=== PATIENT | female | born 1940 | race Caucasian/White ===

== ENCOUNTER 2016-12-18 21:00 | Inpatient (IN) | payer OTHER ==
[~2016-12-18] VITALS: Ht 167.6 cm; Wt 99.9 kg
--- NOTE | 2016-12-18 21:07 | NUR ---
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 SUPPORT GIVEN AND PT ENCOURAGED TO FOCUS ON SLOW BELLY BREATHING
--- NOTE | 2016-12-18 21:21 | ED DYSPNEA/ASTHMA COMPLAINT ---
History of Present Illness General Chief Complaint: Dyspnea (COPD, CHF, Other) Stated Complaint: CHILLS, SHOULDER PAIN, POOR PO INTAKE, SOB Source: patient, old records Exam Limitations: no limitations Vital Signs & Intake/Output Vital Signs & Intake/Output Vital Signs Date Time Temp Pulse Resp B/P B/P Pulse O2 O2 Flow FiO2 Mean Ox Delivery Rate 12/183 99.9 93 20 119/67 94 Nasal 2.0L Cannula 12/18 2118 99.9 92 16 86/56 96 Room Air Allergies Coded Allergies: Penicillins (UNKNOWN 12/18/16) vancomycin (ITCHY ALL OVER 12/18/16) Reconcile Medications Aspirin (Aspirin*) 81 MG TAB.CHEW 1 TAB PO DAILY HEART HEALTH (Reported) Carvedilol (Coreg) 25 MG TABLET 1 TAB PO BID htn (Reported) Docusate Sodium (Colace) 100 MG CAPSULE 1 CAP PO BID CONSTIPATION (Reported) Furosemide (Lasix) 40 MG TABLET 1 TAB PO DAILY htn (Reported) Gabapentin (Neurontin) 300 MG CAPSULE 2 CAP PO TID NEUROPATHY (Reported) Glipizide (Glipizide ER) 2.5 MG TAB.ER.24 1 TAB PO BID DM (Reported) Lisinopril 10 MG TABLET 1 TAB PO DAILY htn (Reported) Pantoprazole Sodium (Protonix) 40 MG TABLET.DR 1 TAB PO DAILY GERD (Reported) Triage Nurses Notes Reviewed? yes Onset: Gradual Duration: day(s): (5), constant Timing: recent history Severity: moderate Activities at Onset: activity Prior Episodes/Possible Cause: no prior episodes Associated Symptoms: arm pain HPI: 76 Year old female with history of Hypertension, RALPH, hyperlipidemia, cardiomyopathy, diabetes, chronic kidney disease presents to the ER for evaluation with family who report the patient has had progressively worsening generalized weakness, poor appetite and subjective fever chills for the past 5 days. Patient is also complaining of generalized body aches particularly bilateral arm pain for which she is in pain management. Her last dose of Tylenol with codeine was at 3:00 this afternoon without improvement. The patient denies any recent injury trauma or fall. She denies any chest pain or shortness of breath. No abdominal pain nausea vomiting or diarrhea no black or bloody stools no urinary frequency urgency dysuria. There's been no change in her mental status per family no rashes to her skin no headache (ARMOND SEGUAR) Past History Travel History Traveled to [place] past 21 day No Medical History Any Pertinent Medical History? see below for history Cardiovascular: cardiomyopathy, hypertension, hyperlipidemia Musculoskeletal: chronic arm/neck pain Endocrine: diabetes Pneumonia Vaccine: 12/09/06 Surgical History Surgical History: non-contributory Psychosocial History Who do you live with Daughter What is your primary language Belarusian Family History Hx Contributory? No (ARMOND SEGURA) Review of Systems Review of Systems Constitutional: Reports: see HPI. All Other Systems: Reviewed and Negative Comments Review of systems: See HPI, All other systems negative. Constitutional, no chills no fever, malaise HEENT: no sore throat no congestion Cardiovascular: No chest pain , no palpitation Skin: no rashes, no change in skin Respiratory: No dyspnea no cough no sputum GI: No nausea no vomiting, no diarrhea, : No dysuria No hematuria, no frequency Muscle skeletal: chronic joint pain, no joint swelling, no back pain, no neck pain, Neurologic: No numbness no confusion, no headache Psych: No stress no depression,. Heme/endocrine: No bruising no bleeding Immunology: No lymphadenopathy (ARMOND SEGURA) Physical Exam Physical Exam General Appearance: well developed/nourished, alert, awake Respiratory: normal breath sounds, lungs clear Comments: Well-developed well-nourished person in no acute distress HEENT: Normal EENT exam; PERRL, EOMI,. HEAD is atraumatic. moist mucous membranes. Neck: Supple, no lymphadenopathy, normal range of motion Back: Nontender, no CVA tenderness. Full range of motion Cardiovascular: Regular rate and rhythms no murmurs rubs Respiratory: No respiratory distress. Patient speaking in full complete sentences. Breath sounds clear to auscultation bilaterally: NO W/R/R Abdomen: Soft, nontender nondistended, no appreciable organomegaly. Normal bowel sounds. No rebound/guarding, No appreciable enlargement of the abdominal aorta, No ascites. Extremity: No edema, full range of motion of extremities, normal and equal pulses bilaterally, 5 out of 5 strength noted to bilateral upper and lower extremities Neuro: Alert oriented x3, motor sensory normal, There were no obvious focal neurologic abnormalities. Skin: No appreciable rash on exposed skin, skin is warm and dry. Psych: Mood and affect is normal, memory and judgment is normal. Core Measures ACS in differential dx? Yes Severe Sepsis Present: Yes BC x2: Yes Lactic Acid x2: Yes IV ABX Broad Spectrum: Yes NS/LR Started: Yes Septic Shock Present: No (ARMOND SEGURA) Progress Differential Diagnosis: AMI, pericarditis, pneumonia, sepsis, bronchitis, uti, rhabdo, electrolyte abnormality, kidney insufficency Plan of Care: Orders Procedure Date/time Status Regular Diet 12/19 B Active OXYGEN SETUP (GEN) 12/18 2318 Active Saline Lock 12/18 2318 Active Admit to inpatient 12/18 2318 Active Vital Signs 12/18 2318 Active Activity/Ambulation 12/18 2318 Active Code Status 12/18 2318 Active Patient Data 12/18 2306 Active Add-on Test (ER Only) 12/18 2236 Active B-TYPE NATRIURETIC PEP (BNP) 12/18 2149 Complete Telemetry/Baker Pie 12/18 2134 Active CULTURE,URINE 12/18 2134 Active BLOOD CULTURE 12/18 2134 Active URINALYSIS 12/18 2134 Active TROPONIN LEVEL 12/18 2134 Complete LACTIC ACID 12/18 2134 Complete COMPREHENSIVE METABOLIC PANEL 12/18 2134 Complete CREATINE PHOSPHOKINASE 12/18 2134 Complete CBC WITHOUT DIFFERENTIAL 12/18 2134 Complete EKG 12/18 2102 Active Current Medications Sig/Louisa Start time Last Medication Dose Stop Time Status Admin Azithromycin 500 MG ONCE ONE 12/18 2245 AC 12/18 (Zithromax) 12/18 2344 2302 Sodium Chloride 250 ML (Normal Saline 0.9%) Sodium Chloride 1,000 ML BOLUS ONE 12/18 224 AC (Normal Saline 0.9%) 12/18 2344 Laboratory Tests 12/18/162149: Anion Gap 12, Estimated GFR 17 L, BUN/Creatinine Ratio 32.6 H, Glucose 143 H, Lactic Acid 0.6 L, Calcium 9.0, Total Bilirubin 0.5, AST 17, ALT 31, Alkaline Phosphatase 47, Creatine Kinase 82, Troponin I 0.01, Qvw-F-Byfccbpcppe Pept 2460 H, Total Protein 6.9, Albumin 4.0, Globulin 2.9, Albumin/Globulin Ratio 1.4, CBC w Diff NO MAN DIFF REQ, RBC 3.80 L, MCV 88.0, MCH 29.6, RDW 14.0, MPV 9.4, Gran % 74.3, Lymphocytes % 15.2 L, Monocytes % 5.4, Eosinophils % 4.0, Basophils % 1.1, Absolute Granulocytes 4.9, Absolute Lymphocytes 1.0 L, Absolute Monocytes 0.4, Absolute Eosinophils 0.3, Absolute Basophils 0.1, PUBS MCHC 33.6 Microbiology 12/18 2206 BLOOD: Blood Culture - RECD 12/18 2149 BLOOD: Blood Culture - RECD 12/18 2134 URINE ROUT: Urine Culture - ORD labs ordered old records reviewed, case d/w dr Dueñas agrees with plan, pt noted to be hypotensive, mentating well. iv fluids ordered Patient placed on 2 L O2 oxygen saturation 87-88% IV fluids running she reports to feeling improved with IV fluids I discussed with her and her family at length all of her lab results need for admission which they're in agreement with 2299 case d/w dr delacruz covering dr morelos will admit (ALEXY HARDEN,ARMOND) Diagnostic Imaging: Viewed by Me: Radiology Read. Discussed w/RAD: Radiology Read. Radiology Impression: PATIENT: MADDIE MCMANUS PRESENT AGE: 76 PATIENT ACCOUNT NO: [id number] : 38 LOCATION: [facility] ORDERING PHYSICIAN: ARMOND HARDEN SERVICE DATE: 12/18/16 EXAM TYPE: RAD - XRY- PORTABLE CHEST XRAY EXAMINATION: XR PORTABLE CHEST CLINICAL INFORMATION: Hypotension. Shortness of breath. COMPARISON: Portable chest x-ray 12/27/2011. TECHNIQUE: Portable frontal view of the chest was obtained. FINDINGS: The lungs are hypoinflated. A left-sided retrocardiac opacity as well as a right basilar opacity are nonspecific and may reflect atelectasis. Superimposed infection cannot be excluded. No pleural effusions or pneumothoraces are identified. Cardiomediastinal contours are stable and there is stable prominence of the cardiac silhouette, without overt pulmonary edema. Soft tissues are unremarkable. No acute osseous abnormality is identified. IMPRESSION: Pulmonary hypoinflation. A left-sided retrocardiac opacity as well as a right basilar opacity are nonspecific and may reflect atelectasis. Superimposed infection cannot be excluded. Cardiomegaly. No overt pulmonary edema. No pleural effusions. DICTATED BY: HILARIA BRAUN MD DATE/TIME DICTATED:12/18/162221 MILL RECORDER:JAS DATE/TIME TRANSCRIBED:12/18/162221 CONFIDENTIAL, DO NOT COPY WITHOUT APPROPRIATE AUTHORIZATION. <Electronically signed in Other Vendor System> SIGNED BY: HILARIA BRAUN MD 12/18/162226 Initial ED EKG: normal p-waves, normal QRS complex, normal sinus rhythm, NSR (90 ), LBBB Prior EKG: unchanged (12/2011) (ARMOND SEGURA) Departure Departure Time of Disposition: 2302 Disposition: STILL A PATIENT Condition: Stable Clinical Impression Primary Impression: Acute kidney injury Secondary Impressions: Pneumonia Referrals: CHI MORELOS MD (PCP/Family) Departure Forms: Customer Survey General Discharge Information Admission Note Spoke With: ANG DELACRUZ MD Documentation of Exam: Documentation of any treatments & extenuating circumstances including Concerns Regarding Discharge (functional status, medication knowledge or non-compliance, living conditions, etc.) that warrant an admission rather than observation: iv fluids, trend labs and cultures, iv abx, premature discharge would be medically harfmul (ARMOND SEGURA) PA/[employer] Co-Sign Statement Statement: ED Attending supervision documentation- x I saw and evaluated the patient. I have also reviewed all the pertinent lab results and diagnostic results. I agree with the findings and the plan of care as documented in the PA's/[employer]'s documentation. [] I have reviewed the ED Record and agree with the PA's/[employer]'s documentation. [] Additions or exceptions (if any) to the PAs/[employer]'s note and plan are summarized below: [] (DINO DUEÑAS MD) Critical Care Note Critical Care Note Critical Care Time: non-applicable (ARMOND SEGURA)
--- NOTE | 2016-12-18 21:22 | NUR ---
PT TO ED WITH FAMILY C/O GENERALIZED WEAKNESS/FEVERS/CHILLS/SOB X5 DAYS. 99.9 ORALLY IN TRIAGE, TOOK TYLENOL #3 AT 1500. POOR PO INTAKE. 96% ON RA.
--- NOTE | 2016-12-18 21:22 | NUR ---
PT BROUGHT TO RM 1 FOR COMPLETION OF TRIAGE. FINA TRACEY AT BEDSIDE
[2016-12-18 22:03] LABS: ABSOLUTE BASOPHIL COUNT 0.1 /CUMM (0.0-0.2); ABSOLUTE EOSINOPHIL COUNT 0.3 /CUMM (0.0-0.7); ABSOLUTE GRANULOCYTE CT 4.9 /CUMM (1.4-6.5); ABSOLUTE MONOCYTE COUNT 0.4 /CUMM (0.10-0.60); BASOPHIL % 1.1 % (0.0-2.0); GRANULOCYTE % 74.3 % (42.2-75.2); HEMATOCRIT 33.5 % (37-47); MEAN CORPUSCULAR HGB 29.6 PG (27.0-31.0); MEAN CORPUSCULAR HGB CONC 33.6 G/DL (33.0-37.0); MEAN PLATELET VOLUME 9.4 FL (7.4-10.4); PLATELET COUNT 169 /CUMM (130-400); WHITE BLOOD CELL COUNT 6.7 /CUMM (4.8-10.8)
[2016-12-18] MEDS ORDERED: LASIX40 M1 PO (22:13)
[2016-12-18] MEDS ORDERED: COREG25 M1 PO (22:13)
[2016-12-18] MEDS ORDERED: LISINOPRIL10 M1 PO (22:13)
[2016-12-18] MEDS ORDERED: GLIPIZIDE ER2.5 M1 PO (22:14)
[2016-12-18] MEDS ORDERED: PROTONIX40 M3 PO (22:14)
[2016-12-18] MEDS ORDERED: ASPIRIN81 M4 PO (22:14)
[2016-12-18] MEDS ORDERED: NEURONTIN300 M1 PO (22:14)
[2016-12-18] MEDS ORDERED: COLACE100 M1 PO (22:14)
--- NOTE | 2016-12-18 22:16 | NUR ---
RADIOLOGY TO BEDSIDE TO REPORT PCXY.
--- NOTE | 2016-12-18 22:27 | RADIOLOGY REPORT ---
EXAMINATION: XR PORTABLE CHEST CLINICAL INFORMATION: Hypotension. Shortness of breath. COMPARISON: Portable chest x-ray 12/27/2011. TECHNIQUE: Portable frontal view of the chest was obtained. FINDINGS: The lungs are hypoinflated. A left-sided retrocardiac opacity as well as a right basilar opacity are nonspecific and may reflect atelectasis. Superimposed infection cannot be excluded. No pleural effusions or pneumothoraces are identified. Cardiomediastinal contours are stable and there is stable prominence of the cardiac silhouette, without overt pulmonary edema. Soft tissues are unremarkable. No acute osseous abnormality is identified. IMPRESSION: Pulmonary hypoinflation. A left-sided retrocardiac opacity as well as a right basilar opacity are nonspecific and may reflect atelectasis. Superimposed infection cannot be excluded. Cardiomegaly. No overt pulmonary edema. No pleural effusions.
--- NOTE | 2016-12-18 23:02 | NUR ---
SECOND LITER NS HUNG PER EMAR. AZITHROMYCIN HUNG AT THIS TIME.
--- NOTE | 2016-12-18 23:08 | History & Physical ---
See Addendum DARSHANA CACERES,[facility] – [place] 12/18/16 5462: General Information and HPI MD Statement: I have seen and personally examined MADDIE MCMANUS and documented this H&P. The patient is a 76 year old F who presented with a patient stated chief complaint of shortness of breath. Source of Information: patient, family, old records Exam Limitations: clinical condition History of Present Illness: Ms. 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 Most of the history is obtained from patient's daughter and granddaughter at bedside. According to patient's daughter, for the past five days leading to current presentation, she has been very tired and unable to get out of bed. At her baseline, she is relatively active and is able to drive and go shopping. Patient has orthopnea at baseline and always sleeps with the head of the bed elevated but there has been no significant change from baseline during this time. Patient has been endorsing early satiety and complaining that food is tasteless and has eaten very little during the past 5 days. She has also been complaining of right upper quadrant discomfort. She is compliant with her medications but eats a lot of junk food. She endorses chills, but denies fevers, cough, URI symptoms, sick contacts, chest pain and leg swelling. Patient sees validation software facilitator Dr. Brandon and her last ECHO was approximately 6 months ago which had shown severe aortic stenosis with LVEF of 40-45%. She was supposed to see Dr. Brandon in four days from her current presentation for a repeat ECHO. Allergies/Medications Allergies: Coded Allergies: Penicillins (UNKNOWN 12/18/16) vancomycin (ITCHY ALL OVER 12/18/16) Home Med list Aspirin (Aspirin*) 81 MG TAB.CHEW 1 TAB PO DAILY HEART HEALTH (Reported) Carvedilol (Coreg) 25 MG TABLET 1 TAB PO BID htn (Reported) Docusate Sodium (Colace) 100 MG CAPSULE 1 CAP PO BID CONSTIPATION (Reported) Furosemide (Lasix) 40 MG TABLET 1 TAB PO DAILY htn (Reported) Gabapentin (Neurontin) 300 MG CAPSULE 2 CAP PO TID NEUROPATHY (Reported) Glipizide (Glipizide ER) 2.5 MG TAB.ER.24 1 TAB PO BID DM (Reported) Lisinopril 10 MG TABLET 1 TAB PO DAILY htn (Reported) Pantoprazole Sodium (Protonix) 40 MG TABLET.DR 1 TAB PO DAILY GERD (Reported) Compliance With Home Meds: GOOD Past History Travel History Traveled to [place] past 21 day No Medical History Cardiovascular: aortic stenosis, cardiomyopathy (viral), CHF, chronic venous insuff, hypertension, hyperlipidemia, systolic CHF Respiratory: obstructive sleep apnea Gastrointestinal: upper GI bleed, duodenal ulcer Renal: chronic kidney disease Musculoskeletal: degen joint disease, osteoarthritis, chronic arm/neck pain Endocrine: diabetes Pneumonia Vaccine: 12/09/06 Surgical History Surgical History: arthroscopy (left hip), hip replacement (right hip), hysterectomy, knee replacement (bilateral), gastric bypass Past Family/Social History Family History Relations & Conditions if any MOTHER, ; Cause: Heart problem. FATHER, ; Cause: Fire accident. Relation not specified for: *No pertinent family history Psychosocial History Where do you live? Home Who Do You Live With? child Primary Language: Pakistani Smoking Status: Former Smoker (Quit >20 Years Ago) ETOH Use: denies use Functional Ability ADLs Independent: dressing, eating, toileting, bathing. IADLs Independent: shopping, housework, finances, food prep, telephone, transportation , medication admin. Review of Systems Review of Systems Constitutional: Reports: chills. Denies: fever. EENTM: Reports: no symptoms. Cardiovascular: Reports: orthopena. Denies: chest pain, peripheral edema. Respiratory: Reports: short of breath. Denies: cough, sputum production. GI: Reports: abdominal pain. Genitourinary: Reports: no symptoms. Musculoskeletal: Reports: no symptoms. Skin: Reports: no symptoms. Neurological/Psychological: Reports: no symptoms. Hematologic/Endocrine: Reports: no symptoms. Immunologic/Allergic: Reports: no symptoms. All Other Systems: Reviewed and Negative Exam & Diagnostic Data Last 24 Hrs of Vital Signs/I&O Vital Signs Date Time Temp Pulse Resp B/P B/P Pulse O2 O2 Flow FiO2 Mean Ox Delivery Rate 12/183 99.9 93 20 119/67 94 Nasal 2.0L Cannula 12/18 2118 99.9 92 16 86/56 96 Room Air Intake & Output 12/19 0800 05/14 0000 12/18 1600 Intake Total 2250 Output Total Balance 2250 Intake, IV 2250 Patient 95.254 kg Weight Weight Reported by Patient Measurement Method Physical Exam General Appearance Alert, Oriented X3, No Acute Distress HEENT Atraumatic, Mucous Membr. moist/pink Neck Supple Cardiovascular Regular Rate, Normal S1, Normal S2, Grade 3/6 Systolic Ejection Murmur Lungs Crackles Scattered Throughout Bilateral Lung [place] Abdomen Soft, No Tenderness, Obese, Positive Bowel Sounds Extremities No Clubbing, No Cyanosis, 1+ Pitting Edema on Bilateral Lower Extremities Last 24 Hrs of Labs/Conor: Laboratory Tests 12/18/162149: Anion Gap 12, Estimated GFR 17 L, BUN/Creatinine Ratio 32.6 H, Glucose 143 H, Lactic Acid 0.6 L, Calcium 9.0, Total Bilirubin 0.5, AST 17, ALT 31, Alkaline Phosphatase 47, Creatine Kinase 82, Troponin I 0.01, Fzc-N-Tgkcnilinrx Pept 2460 H, Total Protein 6.9, Albumin 4.0, Globulin 2.9, Albumin/Globulin Ratio 1.4, CBC w Diff NO MAN DIFF REQ, RBC 3.80 L, MCV 88.0, MCH 29.6, RDW 14.0, MPV 9.4, Gran % 74.3, Lymphocytes % 15.2 L, Monocytes % 5.4, Eosinophils % 4.0, Basophils % 1.1, Absolute Granulocytes 4.9, Absolute Lymphocytes 1.0 L, Absolute Monocytes 0.4, Absolute Eosinophils 0.3, Absolute Basophils 0.1, PUBS MCHC 33.6 Microbiology 12/18 2206 BLOOD: Blood Culture - RECD 12/18 2149 BLOOD: Blood Culture - RECD 12/18 2134 URINE ROUT: Urine Culture - ORD Diagnostic Data EKG Results Normal sinus rhythm HR 93 LBBB (old) QTc 488 CXR Results Pulmonary hypoinflation. A left-sided retrocardiac opacity as well as a right basilar opacity are nonspecific and may reflect atelectasis. Superimposed infection cannot be excluded. Cardiomegaly. No overt pulmonary edema. No pleural effusions. 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 #Shortness of breath/fatigue 2/2 acute decompensated CHF: Likely secondary to CHF in the presence of cardiomegaly and volume overload on CXR, elevated proBNP (2460) as well as significant volume overload on exam with bibasilar crackles and orthopnea. Most recent ECHO 6 months ago with severe aortic stenosis and LVEF of 40-45%. Patient is hypotensive with BP down to 80/40s secondary to reduced effective intravascular volume in the setting of decompensated CHF. * Admit to telemetry. * Cardiology consulted. Appreciate their recs. * Administer 40 mg of IV Lasix. * Monitor strict I/Os and daily weights. * ECHO ordered. * Monitor off antibiotics. * Hold mwpmw-ye-qwwwyusgw lisinopril and carvedilol in the setting of hypotension. * Start NS @ 75 cc/hr. * Administer 250 ml of NS bolus. * Serial troponins and EKG to rule out ACS. #Fever: Although afebrile on admission, patient did spike fever to Tmax 101.3. WBC count WNL. S/p 1 dose of azithromycin administered in the ED but CXR with no clear infiltrate to suggest pneumonia. Unclear etiology but differential includes flu or viral bronchitis. * Check rapid flu. * Repeat CBC in the AM. * Administer ceftriaxone 1 g IV. * BCx, UCx and sputum Cx ordered. * Consider continuing antibiotics if patient continues to spike fevers or develops leukocytosis. #WEN on CKD: Creatinine 2.7 on initial presentation, increased from baseline of 1.4. Likely secondary to hypoperfusion in the setting of decompensated CHF. * Hold ngvyu-qw-fxyyzxnbs lisinopril. * Gentle hydration with NS @ 75 cc/hr. #Hyperkalemia: K 5.5 on admission. Likely secondary to renal insufficiency. * Repeat BMP in the morning. #Non-insulin dependent T2DM: Takes glipizide ER 2.5 mg PO BID. * Hold oral hypoglycemic agents while inpatient. * Accu-checks and low dose sliding scale Novolog TIDAC. Diet: Consistent Carbohydrate 2 Pain: Morphine 2 mg IV Q4H PRN for severe pain (scale 7-10) Tylenol 1 g IV Q6H PRN for moderate pain (scale 4-6) Tylenol 650 mg PO Q6H PRN for mild pain (scale 1-3) DVT PPx: HSQ and ALPs CODE: DNR/DNI As Ranked By This Provider Problem List: 1. CHF (congestive heart failure) 2. Acute on chronic kidney failure 3. Non-insulin dependent type 2 diabetes mellitus 4. Hyperkalemia Core Measures/Miscellaneous Acute Coronary Syndrome ACS Diagnosis: No Cerebrovascular Accident CVA/TIA Diagnosis: No Congestive Heart Failure CHF Diagnosis: Yes Date of most recent Echo: 07/08/16 (In July 2016) Last Known EF %: 45 (40-45%) MARIBEL/ARB for EF <40%: No No MARIBEL/ARB d/t: Renal Failure/Azotemia Venous Thromboembolism VTE Risk Factors: Acute medical illness, Age > 40, CHF or Resp failure, Immobility, paresis, Obesity No Mech VTE prophylaxis d/t: No contraindications No VTE Pharm Prophylaxis d/t: No contraindications VTE Diagnosis: No VTE Type: NONE VTE Confirmed by (Test): NONE Severe Sepsis Severe Sepsis Present: No NS/LR Started: Yes Septic Shock Septic Shock Present: No Miscellaneous Documentation Attending Case [facility] Primary Care Physician: CHI GARCIA MD Patient sees these Specialists Mail Caller Paddy Brandon MD Level of Patient Care: Telemetry HOANG PICKARD 12/19/16 0032: Core Measures/Miscellaneous Acute Coronary Syndrome ACS Diagnosis: No Cerebrovascular Accident CVA/TIA Diagnosis: No Congestive Heart Failure CHF Diagnosis: Yes Venous Thromboembolism VTE Risk Factors: Age > 40, Immobility, paresis, Obesity No Mech VTE prophylaxis d/t: No contraindications No VTE Pharm Prophylaxis d/t: No contraindications VTE Diagnosis: No Resident Review Statement Resident Statement: examined this patient, discussed with administration intern, agreed with administration intern, discussed with family, reviewed EMR data (avail), discussed with nursing , discussed with case mgmt, reviewed images, amended to note Other Findings: 76-year-old active community dweller woman who presented with worsening short of breath and fatigue. The majority of the history was given by patient's daughter who presented at the bedside. Patient has a history of heart failure with reduced ejection fraction (unknown ejection fraction last echo was done [address] Rubio's office). Patient has been compliant with her medication but she is not on a salt restricted diet. According to daughter for the past 5 or 6 days patient has been complaining of increasing short of breath, increased fatigue, early fulllness and right upper quadrant vague abdominal discomfort, worsening orthopnea, mild trace edema of lower extremity. Patient did not have any fever, chills, cough and sputum production, congestion, contact with a sick person, chest pain. Her past medical history is remarkable for NIDDM, CKD baseline creatinine of 1.6, hyperlipidemia, hypertension, insomnia and obstructive sleep apnea, history of 2 viral cardiomyopathy. Patient is an active community dweller. She lives with her daughter, but she takes care of her medication by herself. She sees Dr. Gonsalez is validation software facilitator's and had to visit on echocardiography done 6 months ago at his office which went very well according to patient's daughter. Review of system: Complains of short of breath , worsening orthopnea, worsening fatigue. Vital signs: 99.9 Fahrenheit/93/20/86 /56/96% in room air and 94% on 2 L. Physical exam: Head and neck: Morbidly obese, mild/moderate distress, JVD was not visible(obese neck); lungs: Loud bibasilar crackles; heart S1-S2 , LUSB systolic murmur; abdomen is soft and nontender; 1+ pitting edema of lower extremities. Pertinent data: C BC normal; sodium 139, potassium 5.5, BUN 88 and creatinine 2.7, proBNP 2460, Chest x-ray: House staff reviewed the chest x-ray. Massive cardiomegaly , Costal phrenic angles are blunted on both sides,+ clearly B signs; bat- distribution the right thinning without focal consolidation. ECG: NSRR; Old LBBB, QRS > 120 Latest Echo 6 months ago: Left ventricular ejection fraction 40-45%; with severe Assessment: 76-year-old woman with history of heart failure with an unknown ejection fraction was admitted for congestive heart failure decompensation. Active problems #1 congestive heart failure decompensation and hypotension. Sepsis Vs cardiogenic shock. Rule out myocardial infarction, infection(viral versus bacterial pneumonia) medication and diet. No leukocytosis, patient had one Temp 101.2. No symptom suggestive of infection. Hx of non-ischemic CMP and EF of 4-- 45% and sevre . Per DR. Brandon chart from 6 m ago patient is a candidate for A. valve replacement for possible TAVR. Hx of LBBB, which could require Biventricular pacemaker. * Admit to telemetry * Insert De [place] Santos; I &Os * maintaine negative fluid balance * Fluid restriction 800ml * Continue IV hydration 75 mL per hour * IV lasix 40 mg once; maintaine blood pressure with 250 ml bolous * Echo * Srart the patient on BiPap for 2 hour to decrease cardiac preload * Trending troponin and EKG Q8- Neg x2 * check Vs q2h; if systolic BP is below 85 mmhg transfer to icu and strat the patient on inotrpic (dobuthamine) and Vasodilators ( discuss w/ validation software facilitator) * Hold all the antihypertensive medication; Coreg, lisinopril * Daily weights * Heart healthy diet * patient received one dose of Azithro; we will give one dose of cefteriaxone and holding off afterward * Rapid flue was negative; follow microbiology results * ternding lactic acid x3 #2 WEN (baseline creatinine of 1.6). cardiorenal and/or pre-renal azothemia due to poor oral intake. * Continue mild hydration 75 mL per hour. * if patient BP tolerate give #3 hyperkalemia: Secondary to acute kidney injury. * Repeat BEP in the a.m. * Iv lasix 40 mg once * hold off ACEI till resolution of the WEN #4 diabetes * Diabetes diets * Insulin aspart sliding scale pre-meals and at bedtime Pain management-continue home medications DVT prophylaxis heparin 5000 units every 8 hours DNR/DNI AUGUSTUS CACERES,[facility] 12/19/16 1157: Attending MD Review Statement Attending Statement Attending MD Statement: examined this patient, discuss w/resident/PA/FINANCIAL SERVICES ASSOCIATE, agreed w/resident/PA/FINANCIAL SERVICES ASSOCIATE, discussed with family, reviewed EMR data (avail), discussed with nursing
--- NOTE | 2016-12-18 23:23 | NUR ---
PT SLEEPING ON STRETCHER. NO APPARENT DISTRESS NOTED. PT SPO2 94% ON 2LPM O2 VIA NC. FAMILY AT BEDSIDE
--- NOTE | 2016-12-18 23:32 | NUR ---
HOUSE STAFF AT BEDSIDE FOR EVAL
--- NOTE | 2016-12-19 00:35 | NUR ---
PT'S BP 87/48. DR GILLILAND INFORMED AND WILL LATER ADVISE OF INTERVENTIONS NEEDED
--- NOTE | 2016-12-19 00:52 | NUR ---
THIRD LITER NS STARTED AT 75ML/HR PER DR GILLILAND
--- NOTE | 2016-12-19 01:40 | NUR ---
INDWELLING GAR CATH PLACED BY MATT CADENA. URINE SAMPLE OBTAINED AND SENT TO LAB (TRIO). FLU SWAB OBTAINED AND SENT TO LAB. PT MEDICATED WITH HEPARIN 5,000 UNITS TO R ABD. NS 250ML BOLUS STARTED
--- NOTE | 2016-12-19 01:41 | NUR ---
URINE TRIO SENT BY THIS [facility].
--- NOTE | 2016-12-19 01:50 | NUR ---
REPORT CALLED TO NICOLE GUTIERREZ
[2016-12-19 02:33] VITALS: BP 84/50
[2016-12-19 03:30] VITALS: BP 72/00
[2016-12-19 04:18] VITALS: BP 72/00
[2016-12-19 05:27] VITALS: BP 68/00
--- NOTE | 2016-12-19 07:17 | Event Note ---
Event Note Event Note: Patient remained hypotenssive. The order for lasix, which was initially placed on 1:45 am, was not administered. At 3 am we followed up on the lasix and realized that lasix order was not given, despite our phone call to ED. Another order for lasix was placed, and was given by the house staff (BP: 66/ pulse ). Patient remained on BiPaP. Hemodynamic stability was not achieved abd patient SBP remained under [address] Merline CACERES was called. He was agreable with starting dobutamin and she was transferred to ICU for close observation. Dobutamin drip was started on 2.5 mcg/kg/min with check BP [id number] for the 1h. Patient BP improved, initially from 66/00 mmhg>> 78/47mm/hg>> 84 mmhg SBP. Aforementioned desicions regading medication administartion and management was all discussed with Dr. Merline Otto MD.
[2016-12-19 08:00] VITALS: BP 88/54
--- NOTE | 2016-12-19 08:00 | NUR ---
Patient is lethargic, will open eyes to tactile stimuli, occasionally follows commands. NSR/1st degree AV block with BBB on tele monitor, HR= 80's. SBp: ranging from 80-90's and dobutamine gtt has been increased to 5mcg per order. Dr. Rick to be in to assess and an ECHO has been ordered- patient has a history of severe aortic stenosis and sees Dr. Brandon- plan was for a TAVR in the near future. Currently on bi-pap at 30% rate of 18, 6- lungs diminished with scant crackles noted to the bilateral bases. Patient was previously medicated with IV lasix. O2 sats stable at 95-96%. Abdomen is distended and soft, non tender with + bowel sounds. Last BM unknown. NPO at this time. De Los Santos in place draining clear yellow urine with approx 30-50mls of clear yellow urine per hour. Skin is intact with no areas of pressure injury noted. Trace BLE edema. Patient is able to deny pain. Dr. Lino to be in to assess. ABG's to be drawn. Patient currently a DNR/DNI however family meeting to occur to discuss code status and possible transfer to another hospital. Will continue to closely monitor patient.
--- NOTE | 2016-12-19 08:04 | NUR ---
AT AROUND 0608 PT TRANSFER FROM [facility] FOR BP MANAGEMENT, PT ARRIVED TO UNIT DROWSY BUT AROUSABLE, FOLLOWING ALL COMMANDS ORIENTED X2. HR 80'S 1ST DEGREE AV BLOCK W/BBB, BP 70/00 MD HOANG PICKARD AT BEDSIDE PER MD WILL START DOBUTAMINE AT 2.5MCG/HR. PT ON 2LNC, WAS ON BIPAP AT 30% FI02 ON FLOOR,CRACKLES AUSCULTATED BILATERALLY. RESPIRATORY CALLED TO PLACE PT BACK ON BIPAP. GAR IN PLACE 150ML OF CLEAR YELLOW URINE EMPTIED. SKIN INTACT. FAMILY AT BEDSIDE.
[2016-12-19 08:05] LABS: ABSOLUTE BASOPHIL COUNT 0 /CUMM (0.0-0.2); ABSOLUTE EOSINOPHIL COUNT 0.1 /CUMM (0.0-0.7); ABSOLUTE MONOCYTE COUNT 0.6 /CUMM (0.10-0.60); WHITE BLOOD CELL COUNT 8.7 /CUMM (4.8-10.8)
[2016-12-19 08:28] LABS: ABSOLUTE GRANULOCYTE CT 6.5 /CUMM (1.4-6.5); ABSOLUTE LYMPH COUNT 1.4 /CUMM (1.2-3.4); BASOPHIL % 0.3 % (0.0-2.0); EOSINOPHIL % 1.6 % (0-5); GRANULOCYTE % 75.1 % (42.2-75.2); HEMATOCRIT 28.4 % (37-47); MEAN CORPUSCULAR HGB CONC 33.5 G/DL (33.0-37.0); MEAN CORPUSCULAR VOLUME 89.3 FL (81.0-99.0); MEAN PLATELET VOLUME 9.9 FL (7.4-10.4); PLATELET COUNT 150 /CUMM (130-400); RBC DISTRIBUTION WIDTH 13.6 % (11.5-14.5); RED BLOOD CELL CT 3.18 /CUMM (4.20-5.40)
--- NOTE | 2016-12-19 08:56 | NUR ---
ADMISSION NOTE LATE ENTRY:PT ARRIVED TO FLOOR FROM ER 0215. PT LETHARGIC, ORIENTED X2. PT VITAL SIGNS BP 84/00 WITH 250ML NS BOLUS RUNNING. 02 SAT 93% ON 2LNC, HR NSR 82, TEMP 101.[address] RN CALLED DR. AVILA TO CLARIFY ACTIVE ER ORDER OF 4O MG IV LASIX R/T HYPOTENSION. THIS RN AGREED WITH MD TO ADMINISTER LASIX WHEN SYSTOLIC BP > 90. RESPIRATORY AT BEDSIDE TO PLACE PATIENT ON 30% BIPAP. DR PICKARD AT BEDSIDE TO ASSESS PATIENT. 04:00 AM- SYSTOLIC BP REMAINS BETWEEN 68-72/00. DR PICKARD QUESTIONED WHY IV LASIX WAS NOT YET ADMINISTERED. THIS RN REPORTED BP. MD STATED LASIX TO BE GIVEN AT THIS TIME. RN EXPRESSED CONCERN ABOUT HYPOTENSION AND REQUESTED MD TO ADMINISTERED. IV LASIX ADMINISTED BY MD PER EMAR. PT REMAINED HYPOTENSIVE WITH NO DIURESIS. PT TRANSFERRED TO ICU FOR FURTHER EVALUATION PER MD ORDER. FAMILY AT BEDSIDE AT TIME OF TRANSFER. REPORT GIVEN TO KENNEDY GUTIERREZ.
--- NOTE | 2016-12-19 09:29 | Cons- Cardiology ---
General Information and HPI Consulting Request Date of Consult: 12/19/16 Requested By: ANG COFFMAN MD Reason for Consult: Congestive heart failure, hypotension, known aortic stenosis and cardiomyopathy. Source of Information: patient, family, old records Exam Limitations: not alert/orientated History of Present Illness: Glenys Mcmanus is a 76-year-old female who is usually followed by Dr. Stoney Khoury and Chi Poe MD. She has known non-ischemic cardiomyopathy with recent ejection fraction 6 months ago 40-45%. She also has severe aortic stenosis, exact hemodynamics are unknown at this time. There apparently has been some talk of TAVR to the patient and family but this has not yet been pursued. The patient is unable to give any history at this moment. According to the family she has not been well for about one month with shortness of breath on exertion which has been worse over the past week. Yesterday she became febrile and looked poorly and she was brought to the emergency department. Initially her blood pressure was in the 80s. Subsequently it came up over 110 but then deteriorated back into the 80s and 90s. Eventually she became more hypotensive and was moved to intensive care unit and started on dobutamine drip. Her chest x-ray shows marked cardiomegaly and pulmonary vascular congestion. Her BUN and creatinine are much higher than baseline, currently at 79 and 3.1, troponins are negative 2. There was no history of chest pain. She has been febrile to maximum 101.3 although WBC is not elevated. Currently she is on BiPAP and ABGs show mostly metabolic acidosis. The patient is listed as DNR/DNI and further discussions need to be held with the family. They are aware that she is critically ill at this point. Allergies/Medications Allergies: Coded Allergies: Penicillins (UNKNOWN 12/18/16) vancomycin (ITCHY ALL OVER 12/18/16) Home Med List: Aspirin (Aspirin*) 81 MG TAB.CHEW 1 TAB PO DAILY HEART HEALTH (Reported) Carvedilol (Coreg) 25 MG TABLET 1 TAB PO BID htn (Reported) Docusate Sodium (Colace) 100 MG CAPSULE 1 CAP PO BID CONSTIPATION (Reported) Furosemide (Lasix) 40 MG TABLET 1 TAB PO DAILY htn (Reported) Gabapentin (Neurontin) 300 MG CAPSULE 2 CAP PO TID NEUROPATHY (Reported) Glipizide (Glipizide ER) 2.5 MG TAB.ER.24 1 TAB PO BID DM (Reported) Lisinopril 10 MG TABLET 1 TAB PO DAILY htn (Reported) Pantoprazole Sodium (Protonix) 40 MG TABLET.DR 1 TAB PO DAILY GERD (Reported) Current Medications: Current Medications Sig/Louisa Start time Last Medication Dose Route Stop Time Status Admin Acetaminophen 650 MG Q6P PRN 12/19 0115 AC PO Acetaminophen 1,000 MG Q6P PRN 12/19 0115 AC 12/19 IV 0228 Aspirin 81 MG DAILY 12/19 1000 AC PO Azithromycin 500 MG ONCE ONE 12/18 2245 DC 12/18 Sodium Chloride 250 ML IV 12/18 2344 2302 Ceftriaxone Sodium 1,000 MG ONCE ONE 12/19 0300 DC 12/19 IV 12/19 0301 0338 Dobutamine HCl 250 MG ONCE ONE 12/19 0630 DC 12/19 Dextrose/Water 250 ML IV 12/19 0631 0637 Dobutamine HCl 250 MG Q24H 12/19 0615 AC Dextrose/Water 250 ML IV Dobutamine HCl 250 MG Q24H 12/19 0600 DC Dextrose/Water 250 ML IV Dobutamine HCl 250 MG Q24H 12/19 0545 DC Dextrose/Water 250 ML IV Docusate Sodium 100 MG BID 12/19 1000 AC PO Furosemide 40 MG ONCE ONE 12/19 0145 DC 12/19 IV PUSH 12/19 0146 0356 Heparin Sodium 0 .STK-MED ONE 12/19 0132 DC (Porcine) .ROUTE Heparin Sodium 5,000 UNIT Q8 12/19 011 AC 12/19 (Porcine) SC 0139 Insulin Aspart 0 TIDAC 12/19 0800 AC SC Morphine Sulfate 2 MG Q4P PRN 12/19 0115 AC IV Sodium Chloride 250 ML BOLUS ONE 12/19 0530 DC 12/19 IV 12/19 0629 0530 Sodium Chloride 250 ML BOLUS ONE 12/19 0245 DC 12/19 IV 12/19 0344 0300 Sodium Chloride 250 ML BOLUS ONE 12/19 0130 DC 12/19 IV 12/19 0229 0139 Sodium Chloride 1,000 ML Q13H 12/19 0100 DC 12/19 IV 0100 Sodium Chloride 1,000 ML BOLUS ONE 12/18 2245 CAN IV 12/18 2344 Sodium Chloride 1,000 ML BOLUS ONE 12/18 2145 DC 12/18 IV 12/184 2205 Sodium Chloride 1,000 ML BOLUS ONE 12/18 214 DC 12/18 IV 12/184 2302 Review of Systems Review of Systems: Unobtainable Past History Travel History Traveled to [place] past 21 day No Medical History Cardiovascular: aortic stenosis, cardiomyopathy (viral), CHF, chronic venous insuff, hypertension, hyperlipidemia, systolic CHF Respiratory: obstructive sleep apnea Gastrointestinal: upper GI bleed, duodenal ulcer Renal: chronic kidney disease Musculoskeletal: degen joint disease, osteoarthritis, chronic arm/neck pain Endocrine: diabetes Surgical History Surgical History: arthroscopy (left hip), hip replacement (right hip), hysterectomy, knee replacement (bilateral), gastric bypass Family History Relations & Conditions If Any: MOTHER, ; Cause: Heart problem. FATHER, ; Cause: Fire accident. Relation not specified for: *No pertinent family history Psychosocial History Where Do You Live? Home Who Do You Live With? child Primary Language: Ecuadorean Smoking Status: Former Smoker (Quit >20 Years Ago) ETOH Use: denies use Functional Ability ADLs Independent: dressing, eating, toileting, bathing. IADLs Independent: shopping, housework, finances, food prep, telephone, transportation , medication admin. Exam & Diagnostic Data Vital Signs and I&O Vital Signs Date Time Temp Pulse Resp B/P B/P Pulse O2 O2 Flow FiO2 Mean Ox Delivery Rate 12/19 0924 87 98 12/19 0800 99.0 84 18 88/54 95 BIPAP 30% 12/19 0637 99.4 80 18 78/48 12/19 0626 79 96 12/19 0543 79 93 12/19 0527 99.1 78 18 68/00 94 BIPAP 30% 12/19 0418 80 17 72/00 BIPAP 30% 12/19 0332 100.2 12/19 0330 99.1 86 20 72/00 94 BIPAP 30% 12/19 0257 95 BIPAP 30% 12/19 0238 85 97 12/19 0233 101.3 87 22 84/50 93 Nasal 2.0L Cannula 12/19 0228 101.3 12/19 0217 93 Nasal 2.0L Cannula 12/19 0148 100.1 90 20 94/52 95 Nasal 2.0L Cannula 12/19 0109 100.0 89 21 85/47 91 Nasal 2.0L Cannula 12/19 0037 89 20 86/48 93 Nasal 2.0L Cannula 12/183 99.9 93 20 119/67 94 Nasal 2.0L Cannula 12/189 99.9 92 16 86/56 96 Room Air Intake & Output 12/19 0800 12/19 0000 12/18 1600 12/18 0800 12/18 0000 Intake Total 31.2 2250 Output Total 725 Balance -693.8 2250 Intake, IV 31.2 2250 Intake, Oral 0 Number 0 Bowel Movements Output, Urine 725 Patient 229 lb 210 lb Weight Weight Bed scale Reported by Patient Measurement Method Physical Exam: Poorly responsive obese elderly female on BiPAP HEENT exam grossly normal Chest decreased breath sounds throughout Heart grade 3/6 systolic ejection murmur at base Abdomen nontender Extremities no edema, pulses present Labs/Conor Results: Laboratory Tests 12/19 12/19 0909 0640 Blood Gas pH (7.35 - 7.45 PH) 7.16 *L pCO2 (35 - 45 TORR) 43 pO2 (80 - 100 TORR) 103 H HCO3 (21 - 28 MEQ/L) 15 L ABG O2 Sat (Measured) (>96.0 %) 96.0 P-50 (Temp Corrected) N Carboxyhemoglobin (1.5 - 5.0 %) 0.8 L O2 Concentration % 30% Temperature (97.0 - 100.0 FARH) 99.4 Respiration Rate (BPM) 16 O2 Delivery Method BIPAP Vent Mode ST Expiratory Pressure (CM H2O P) 6 Inspiratory Pressure (CM H2O P) 12 Chemistry Lactic Acid (0.7 - 2.1 mmol/L) < 0.5 L Miscellaneous Phlebotomy Draw Site RIGHT RADIAL 12/19 12/19 12/19 0630 0300 0300 Chemistry Sodium (137 - 145 mmol/L) 141 Potassium (3.5 - 5.1 mmol/L) 5.6 H Chloride (98 - 107 mmol/L) 114 H Carbon Dioxide (22 - 30 mmol/L) 15 L Anion Gap (5 - 16) 13 BUN (7 - 17 mg/dL) 79 H Creatinine (0.5 - 1.0 mg/dL) 3.1 H Estimated GFR (>60 ml/min) 15 L BUN/Creatinine Ratio (7 - 25 %) 25.5 H Lactic Acid (0.7 - 2.1 mmol/L) 0.5 L Troponin I (< 0.11 ng/ml) 0.02 Hematology CBC w Diff NO MAN DIFF REQ WBC (4.8 - 10.8 /CUMM) 8.7 RBC (4.20 - 5.40 /CUMM) 3.18 L Hgb (12.0 - 16.0 G/DL) 9.5 L Hct (37 - 47 %) 28.4 L MCV (81.0 - 99.0 FL) 89.3 MCH (27.0 - 31.0 PG) 30.0 RDW (11.5 - 14.5 %) 13.6 Plt Count (130 - 400 /CUMM) 150 MPV (7.4 - 10.4 FL) 9.9 Gran % (42.2 - 75.2 %) 75.1 Lymphocytes % (20.5 - 51.1 %) 15.9 L Monocytes % (1.7 - 9.3 %) 7.1 Eosinophils % (0 - 5 %) 1.6 Basophils % (0.0 - 2.0 %) 0.3 Absolute Granulocytes (1.4 - 6.5 /CUMM) 6.5 Absolute Lymphocytes (1.2 - 3.4 /CUMM) 1.4 Absolute Monocytes (0.10 - 0.60 /CUMM) 0.6 Absolute Eosinophils (0.0 - 0.7 /CUMM) 0.1 Absolute Basophils (0.0 - 0.2 /CUMM) 0 PUBS MCHC (33.0 - 37.0 G/DL) 33.5 12/19 12/18 0137 2150 Chemistry Sodium (137 - 145 mmol/L) 139 Potassium (3.5 - 5.1 mmol/L) 5.5 H Chloride (98 - 107 mmol/L) 110 H Carbon Dioxide (22 - 30 mmol/L) 18 L Anion Gap (5 - 16) 12 BUN (7 - 17 mg/dL) 88 H Creatinine (0.5 - 1.0 mg/dL) 2.7 H Estimated GFR (>60 ml/min) 17 L BUN/Creatinine Ratio (7 - 25 %) 32.6 H Glucose (65 - 99 mg/dL) 143 H Lactic Acid (0.7 - 2.1 mmol/L) 0.6 L Calcium (8.4 - 10.2 mg/dL) 9.0 Total Bilirubin (0.2 - 1.3 mg/dL) 0.5 AST (14 - 36 U/L) 17 ALT (9 - 52 U/L) 31 Alkaline Phosphatase (<127 U/L) 47 Creatine Kinase (30 - 135 U/L) 82 Troponin I (< 0.11 ng/ml) 0.01 [id number] Pept (<125 pg/mL) 2460 H Total Protein (6.3 - 8.2 g/dL) 6.9 Albumin (3.5 - 5.0 g/dL) 4.0 Globulin (1.9 - 4.2 gm/dL) 2.9 Albumin/Globulin Ratio (1.1 - 2.2 %) 1.4 Hematology CBC w Diff NO MAN DIFF REQ WBC (4.8 - 10.8 /CUMM) 6.7 RBC (4.20 - 5.40 /CUMM) 3.80 L Hgb (12.0 - 16.0 G/DL) 11.3 L Hct (37 - 47 %) 33.5 L MCV (81.0 - 99.0 FL) 88.0 MCH (27.0 - 31.0 PG) 29.6 RDW (11.5 - 14.5 %) 14.0 Plt Count (130 - 400 /CUMM) 169 MPV (7.4 - 10.4 FL) 9.4 Gran % (42.2 - 75.2 %) 74.3 Lymphocytes % (20.5 - 51.1 %) 15.2 L Monocytes % (1.7 - 9.3 %) 5.4 Eosinophils % (0 - 5 %) 4.0 Basophils % (0.0 - 2.0 %) 1.1 Absolute Granulocytes (1.4 - 6.5 /CUMM) 4.9 Absolute Lymphocytes (1.2 - 3.4 /CUMM) 1.0 L Absolute Monocytes (0.10 - 0.60 /CUMM) 0.4 Absolute Eosinophils (0.0 - 0.7 /CUMM) 0.3 Absolute Basophils (0.0 - 0.2 /CUMM) 0.1 PUBS MCHC (33.0 - 37.0 G/DL) 33.6 Urines Urine Color (YEL,AMB,STR) YEL Urine Clarity (CLEAR) CLEAR Urine pH (5.0 - 8.0) 5.5 Ur Specific [place] (1.001 - 1.035) 1.025 Urine Protein (NEG,<30 MG/DL) NEG Urine Ketones (NEG) NEG Urine Nitrite (NEG) NEG Urine Bilirubin (NEG) NEG Urine Urobilinogen (0.1 - 1.0 EU/dl) 0.2 Ur Leukocyte Esterase (NEG) NEG Ur Microscopic EXAM NOT REQUIRED Urine Hemoglobin (NEG) NEG Urine Glucose (N MG/DL) NEG Diagnostic Data EKG Results Sinus rhythm, first-degree AV block, left bundle branch block CXR Results PATIENT: GLENYS MCMANUS PRESENT AGE: 76 PATIENT ACCOUNT NO: [id number] : 38 LOCATION: [facility] ORDERING PHYSICIAN: ARMOND HARDEN SERVICE DATE: 12/18/16 EXAM TYPE: RAD - XRY-PORTABLE CHEST XRAY EXAMINATION: XR PORTABLE CHEST CLINICAL INFORMATION: Hypotension. Shortness of breath. COMPARISON: Portable chest x-ray 12/27/2011. TECHNIQUE: Portable frontal view of the chest was obtained. FINDINGS: The lungs are hypoinflated. A left-sided retrocardiac opacity as well as a right basilar opacity are nonspecific and may reflect atelectasis. Superimposed infection cannot be excluded. No pleural effusions or pneumothoraces are identified. Cardiomediastinal contours are stable and there is stable prominence of the cardiac silhouette, without overt pulmonary edema. Soft tissues are unremarkable. No acute osseous abnormality is identified. IMPRESSION: Pulmonary hypoinflation. A left-sided retrocardiac opacity as well as a right basilar opacity are nonspecific and may reflect atelectasis. Superimposed infection cannot be excluded. Cardiomegaly. No overt pulmonary edema. No pleural effusions. DICTATED BY: HILARIA BRAUN MD DATE/TIME DICTATED:12/18/162221 [employer]ARD[employer] MACH[employer]ERY MECHANIC:JAS DATE/TIME TRANSCRIBED:12/18/162221 CONFIDENTIAL, DO NOT COPY WITHOUT APPROPRIATE AUTHORIZATION. <Electronically signed in Other Vendor System> SIGNED BY: HILARIA BRAUN MD 12/18/162226 Assessment/Plan Assessment/Plan This patient presents with hypotension, fever, congestive heart failure on chest x-ray. She has known severe aortic stenosis and mild nonischemic cardiomyopathy. She is hemodynamically unstable with hypotension at this time. She has also acute kidney injury. Her echocardiogram just done shows left ventricular hypertrophy with ejection fraction of about 40% with diffuse hypokinesis. There is calcification of the aortic valve with critical aortic stenosis with a peak gradient of 91 mmHg, mean gradient of 54 mmHg and valve area of approximately 0.7 cm . Pulmonary artery pressure is also elevated. At this point the patient is critically ill with hypotension, acute kidney injury,. She is in some degree of congestive heart failure and has metabolic acidosis. She is listed as DNR/DNI and discussions will be held with the family regarding how aggressive to be in her care. If she is to be treated aggressively with potential TAVR then she probably will need to be intubated for transfer. Copies To: SHARONDA CACERES,STONEY Reyes; JOSE CACERES,CHI Howard. Consult Acknowledgment - Thank you for your consult request.
--- NOTE | 2016-12-19 10:13 | Cons- CRCU ---
[facility] 12/19/16 0934: General Information and HPI Consulting Request Date of Consult: 12/19/16 Requested By: DR KEMP Reason for Consult: CHF, hypercarbic hypoxemic respiratory failure Source of Information: family Exam Limitations: unable to give history, clinical condition History of Present Illness: Ms. Tapia is a 76 y/o F with PMHx of HTN, HFrEF 2/2 nonischemic cardiomyopathy( EF 45% on echo 6 months ago), previous h/o myocarditis X 2, severe aortic stenosis, non-insulin dependent T2DM and CKD who presents with shortness of breath, fatigue and decreased appetite x5 days. As per the patient's family, she has shortness of breath at baseline due to severe aortic stenosis. She can barely walk from the house to the car without getting short of breath. She sleeps with the head of her bed elevated and does have some orthopnea. However, for the past 5 days patient has been very lethargic, drowsy, increasingly short of breath which is much below her baseline. She could barely get out of the bed to the chair. She had no appetite, had severe myalgia and looked very distressed with her lips turning blue. Had some chills and but no fever. Denies any sick contacts, recent travel, nausea, vomiting, abdominal pain, chest pain, urinary or bowel symptoms. She follows up with Dr. Gonsalez and the most recent echo done 6 months ago showed severe aortic stenosis with left ventricular ejection fraction of 40-45%. There were also some discussions of doing TAVR for her symptomatic . She was supposed to follow up with him in 4 days. Family also mentioned that patient has 2 previous histories of myocarditis 20 and 35 years ago. Vitals in the ED showed a temperature of 99.9, pulse 92, respirations 16, blood pressure 86/56, saturating 96% on room air. Labs showed no white count, H&H of 11.3/33.5, sodium 141, potassium 5.6, chloride 114, bicarbonate 15, BUN 79, creatinine 3.1, lactic acid 0.6, troponins 0.01, UA clear. AB.16/43/103/15 Chest x-ray showed cardiomegaly, no overt pulmonary edema. A left-sided retrocardial opacity as well as right basilar opacity? Allergies/Medications Allergies: Coded Allergies: Penicillins (UNKNOWN 12/18/16) vancomycin (ITCHY ALL OVER 12/18/16) Home Med List: Aspirin (Aspirin*) 81 MG TAB.CHEW 1 TAB PO DAILY HEART HEALTH (Reported) Carvedilol (Coreg) 25 MG TABLET 1 TAB PO BID htn (Reported) Docusate Sodium (Colace) 100 MG CAPSULE 1 CAP PO BID CONSTIPATION (Reported) Furosemide (Lasix) 40 MG TABLET 1 TAB PO DAILY htn (Reported) Gabapentin (Neurontin) 300 MG CAPSULE 2 CAP PO TID NEUROPATHY (Reported) Glipizide (Glipizide ER) 2.5 MG TAB.ER.24 1 TAB PO BID DM (Reported) Lisinopril 10 MG TABLET 1 TAB PO DAILY htn (Reported) Pantoprazole Sodium (Protonix) 40 MG TABLET.DR 1 TAB PO DAILY GERD (Reported) Review of Systems Review of Systems Constitutional: Reports: chills, malaise, weakness. EENTM: Reports: no symptoms. Cardiovascular: Reports: no symptoms. Respiratory: Reports: short of breath. GI: Reports: no symptoms. Genitourinary: Reports: no symptoms. Musculoskeletal: Reports: back pain, muscle pain. Skin: Reports: no symptoms. Neurological/Psychological: Reports: no symptoms. Past History Travel History Traveled to [place] past 21 day No Medical History Cardiovascular: aortic stenosis, cardiomyopathy (viral), CHF, chronic venous insuff, hypertension, hyperlipidemia, systolic CHF Respiratory: obstructive sleep apnea Gastrointestinal: upper GI bleed, duodenal ulcer Renal: chronic kidney disease Musculoskeletal: degen joint disease, osteoarthritis, chronic arm/neck pain Endocrine: diabetes Surgical History Surgical History: arthroscopy (left hip), hip replacement (right hip), hysterectomy, knee replacement (bilateral), gastric bypass Family History Relations & Conditions If Any: MOTHER, ; Cause: Heart problem. FATHER, ; Cause: Fire accident. Relation not specified for: *No pertinent family history Psychosocial History Where Do You Live? Home Who Do You Live With? child Primary Language: Kinyarwanda Smoking Status: Former Smoker (Quit >20 Years Ago) ETOH Use: denies use Functional Ability ADLs Independent: dressing, eating, toileting, bathing. IADLs Independent: shopping, housework, finances, food prep, telephone, transportation , medication admin. Exam & Diagnostic Data Last 24 Hrs of Vital Signs/I&O Vital Signs Date Time Temp Pulse Resp B/P B/P Pulse O2 O2 Flow FiO2 Mean Ox Delivery Rate 12/19 0948 78 98 12/19 0924 87 98 12/19 0800 95 BIPAP 30% 12/19 0800 99.0 84 18 88/54 95 BIPAP 30% 12/19 0637 99.4 80 18 78/48 12/19 0626 79 96 12/19 0543 79 93 12/19 0527 99.1 78 18 68/00 94 BIPAP 30% 12/19 0418 80 17 72/00 BIPAP 30% 12/19 0332 100.2 12/19 0330 99.1 86 20 72/00 94 BIPAP 30% 12/19 0257 95 BIPAP 30% 12/19 0238 85 97 12/19 0233 101.3 87 22 84/50 93 Nasal 2.0L Cannula 12/19 0228 101.3 12/19 0217 93 Nasal 2.0L Cannula 12/19 0148 100.1 90 20 94/52 95 Nasal 2.0L Cannula 12/19 0109 100.0 89 21 85/47 91 Nasal 2.0L Cannula 12/19 0037 89 20 86/48 93 Nasal 2.0L Cannula 12/18 2233 99.9 93 20 119/67 94 Nasal 2.0L Cannula 12/18 2119 99.9 92 16 86/56 96 Room Air Intake & Output 12/19 1600 12/19 0800 12/19 0000 Intake Total 31.2 2250 Output Total 725 Balance -693.8 2250 Intake, IV 31.2 2250 Intake, Oral 0 Number 0 Bowel Movements Output, Urine 725 Patient 103.873 kg 95.254 kg Weight Weight Bed scale Reported by Patient Measurement Method Physical Exam General Appearance: lethargic, obese Head: atraumatic, normal appearance Eyes: Bilateral: normal appearance, PERRL, EOMI. Ears, Nose, Throat: normal pharynx Neck: normal inspection Respiratory: bilateral crackles, decreased breath sounds bilaterally Cardiovascular: systolic murmur (s1s2 HEARD) Peripheral Pulses: 2+ radial (R), 2+ radial (L) Gastrointestinal: normal bowel sounds, soft Back: normal inspection Extremities: normal inspection, TRACE PEDAL EDEMA Neurologic/Psych: no motor/sensory deficits, drowsy Last 48 Hrs of Labs/Conor: Laboratory Tests 12/19/16 0909: pH 7.16 *L, pCO2 43, pO2 103 H, HCO3 15 L, ABG O2 Sat (Measured) 96.0, P-50 ( Temp Corrected) N, Carboxyhemoglobin 0.8 L, O2 Concentration % 30%, Temperature 99.4, Respiration Rate 16, O2 Delivery Method BIPAP, Vent Mode ST, Expiratory Pressure 6, Inspiratory Pressure 12, Phlebotomy Draw Site RIGHT RADIAL 12/19/16 0640: Lactic Acid < 0.5 L 12/19/16 0630: Anion Gap 13, Estimated GFR 15 L, BUN/Creatinine Ratio 25.5 H, CBC w Diff NO MAN DIFF REQ, RBC 3.18 L, MCV 89.3, MCH 30.0, RDW 13.6, MPV 9.9, Gran % 75.1, Lymphocytes % 15.9 L, Monocytes % 7.1, Eosinophils % 1.6, Basophils % 0.3, Absolute Granulocytes 6.5, Absolute Lymphocytes 1.4, Absolute Monocytes 0.6, Absolute Eosinophils 0.1, Absolute Basophils 0, PUBS MCHC 33.5 12/19/16 0300: Troponin I 0.02 12/19/16 0300: Lactic Acid 0.5 L 12/19/16 0137: Urine Color YEL, Urine Clarity CLEAR, Urine pH 5.5, Ur Specific [place] 1.025, Urine Protein NEG, Urine Ketones NEG, Urine Nitrite NEG, Urine Bilirubin NEG, Urine Urobilinogen 0.2, Ur Leukocyte Esterase NEG, Ur Microscopic EXAM NOT REQUIRED, Urine Hemoglobin NEG, Urine Glucose NEG 12/18/16 2150: Anion Gap 12, Estimated GFR 17 L, BUN/Creatinine Ratio 32.6 H, Glucose 143 H, Lactic Acid 0.6 L, Calcium 9.0, Total Bilirubin 0.5, AST 17, ALT 31, Alkaline Phosphatase 47, Creatine Kinase 82, Troponin I 0.01, Zxi-C-Ksfoehhplut Pept 2460 H, Total Protein 6.9, Albumin 4.0, Globulin 2.9, Albumin/Globulin Ratio 1.4, CBC w Diff NO MAN DIFF REQ, RBC 3.80 L, MCV 88.0, MCH 29.6, RDW 14.0, MPV 9.4, Gran % 74.3, Lymphocytes % 15.2 L, Monocytes % 5.4, Eosinophils % 4.0, Basophils % 1.1, Absolute Granulocytes 4.9, Absolute Lymphocytes 1.0 L, Absolute Monocytes 0.4, Absolute Eosinophils 0.3, Absolute Basophils 0.1, PUBS MCHC 33.6 Microbiology 12/19 0136 NASOPHARYN: Influenza Virus A & B Rapid Smear - COMP Assessment/Plan Impression/Plan: Ms. Tapia is a 76 y/o F with PMHx of HTN, HFrEF 2/2 nonischemic cardiomyopathy( EF 45% on echo 6 months ago), previous h/o myocarditis X 2, severe aortic stenosis, non-insulin dependent T2DM and CKD who presents with shortness of breath, fatigue and decreased appetite x5 days. Vitals in the ED showed a temperature of 99.9, pulse 92, respirations 16, blood pressure 86/56, saturating 96% on room air. Patient spiked fevers with Tmax 101.3 Labs showed no white count, H&H of 11.3/33.5, sodium 141, potassium 5.6, chloride 114, bicarbonate 15, BUN 79, creatinine 3.1, lactic acid 0.6, troponins 0.01, UA clear. AB.16/43/103/15 Chest x-ray showed cardiomegaly, pulmonary edema. A left-sided retrocardial opacity as well as right basilar opacity? Plan: 1. Acute hypoxic respiratory failure due to ? Decompensated CHF 2/2 nonischemic cardio myopathy versus pneumonia: ECHO 6 months ago with severe aortic stenosis and LVEF of 40-45%. Chest x-ray shows evidence of volume overload and cardiomegaly. History of myocarditis X 2 in the past as per family. -Patient is currently being monitored in the ICU -Received IV fluids in the ED which were held due to a question of a cardiogenic shock. We will continue to hydrate the patient with normal saline at 50 mL an hour for now. -Has been started on a dobutamine drip for possible cardiogenic shock. Blood pressure hovering around 90s/60s. -ABG shows metabolic acidosis. Patient is currently being maintained on BiPAP. -Received 1 dose of IV Lasix 40 mg. Continue as needed keeping a close eye on the blood pressure. -Echocardiogram results pending. -Patient received 1 dose of ceftriaxone in the ED. We will continue the same given questionable opacity on chest x-ray and patient spiking fevers. -Troponins negative into type X 2. EKG shows a left bundle branch block(most likely old) -We'll continue to monitor the patient in ICU and intubated her if needed. 2.Septic shock versus Cardiogenic shock :( fever, tachycardia, tachypnea, questionable opacity on chest x-ray, hypotension, evidence of kidney injury) Although afebrile on admission, patient did spike feverS to Tmax 101.3. WBC count WNL. S/p 1 dose of ceftriaxone and azithromycin administered in the ED but CXR with no clear infiltrate to suggest pneumonia. -Will continue Dopbutamine drip. BP improved with the drip. Patient can be supported with more pressors if needed. -Received IV fluids in the ED. We will continue fluids at 100 mL an hour for now given critical aortic stenosis of 0.6 and on the echo. -Continue antibiotics IV ceftriaxone and IV azithromycin for now -We will get a CT chest without IV contrast once the patient gets stabilized. -Pancultures pending -Continue Tylenol for fevers 3.WEN on CKD: Creatinine 2.7 on initial presentation, increased from baseline of 1.4. Likely secondary to hypoperfusion in the setting of decompensated CHF( cardiorenal) -We will continue gentle hydration with normal saline at 100mL per hour. -Hold holding lisinopril for now. -Repeat labs later to see improvement in kidney functions 4. Hyperkalemia: K 5.5 on admission. Likely secondary to renal insufficiency. -Hydrating with fluids for now. -We will repeat ICU bundle later to see improvement in kidney function. 5.Non-insulin dependent T2DM: Takes glipizide ER 2.5 mg PO BID. -Hold oral hypoglycemic agents while inpatient. -Accu-checks and low dose sliding scale Novolog TIDAC. Diet: Consistent Carbohydrate 2 Pain: Morphine 2 mg IV Q4H PRN for severe pain (scale 7-10) Tylenol 1 g IV Q6H PRN for moderate pain (scale 4-6) Tylenol 650 mg PO Q6H PRN for mild pain (scale 1-3) DVT PPx: HSQ and ALPs CODE: Full code(discussed in detail with the patient by Dr. Kemp) # Please update [place] (daughter) [phone] in case of any change of status. Problem List: 1. Hyperkalemia 2. CHF (congestive heart failure) 3. Acute on chronic kidney failure Consult Acknowledgment - Thank you for your consult request. Clarita MCCLURE MD 12/19/16 1302: Assessment/Plan Other Findings/Comments: I have personally seen and examined the patient. I have reviewed the issue with the resident, and agree with the assessment and plan as detailed above. Briefly , the patient is 76-year-old female with a past medical history significant for hypertension, systolic congestive heart failure, [id number] diabetes and chronic kidney disease. She also has a history of severe aortic stenosis which been symptomatic. The patient was admitted on 12/18/2016 with increased shortness of breath. The patient had worsening hypoxia and was transferred to the critical care unit for closer monitoring. She was found to be in significant congestive heart failure. The patient had an arterial blood gas that showed noncompensated metabolic acidosis. The patient was intubated as a result. Because she is febrile septic shock was considered, noting she is now on IV fluid resuscitation and antibiotics. We are following culture results. The patient is not able to offer complaints. We will continue the plan as per the resident's recommendations as discussed above. Consult Acknowledgment - Thank you for your consult request.
--- NOTE | 2016-12-19 11:49 | RADIOLOGY REPORT ---
EXAMINATION: XR PORTABLE CHEST CLINICAL INFORMATION: Tube placement. COMPARISON: 12/18/2016 TECHNIQUE: Portable AP view of the chest was obtained. FINDINGS: Endotracheal tube is located 3.7 cm above the daisha. Enteric tube extends below the diaphragm and into the stomach; its tip is not well seen. No pneumothorax or pneumomediastinum. Lungs are hypoinflated. There is linear opacity of subsegmental atelectasis at the left base. No focal airspace opacification is identified in the view exam. No pulmonary edema or pleural effusion. Cardiac silhouette is enlarged. Mitral valve annulus is calcified. The hilar vessels are enlarged but unchanged compared to the prior exam. No acute skeletal findings. IMPRESSION: 1. Endotracheal tube is in satisfactory position at 3.7 cm above the daisha. 2. Cardiomegaly and large central pulmonary vessels without pulmonary edema.
--- NOTE | 2016-12-19 11:52 | Admission Certification ---
Admission Certification Certification Statement - As attending physician, I certify that at the time of - admission, based on clinical presentation, severity of - symptoms, need for further diagnostic testing and - therapeutic interventions, and risk of adverse outcomes - without in-hospital treatment, in my clinical assessment, - this patient requires an acute hospital stay for a minimum - of two nights or longer. I have also considered psychsocial - factors such as support system, advanced age, financial - issues, cognitive issues, and failed out-patient treatments, - past re-admission history, safety of patient, and lack of - compliance as applicable. Specific rationale supporting this admission is: Hypotension, septic shock
--- NOTE | 2016-12-19 11:57 | PN- Att Addend ---
Attending Addendum Attending Brief Note Patient on evaluation is on a BiPAP she is awake and alert answering questions appropriately. General Appearance: Alert, No Acute Distress Skin: Grossly normal HEENT: PEERLA Neck: Supple, No JVD Cardiovascular: Regular Rate, Normal S1, Normal S2, No Murmurs Lungs: Coarse lung sounds Abdomen: Normal Bowel Sounds, Soft, No Tenderness Neurological: Normal Speech, Strength at 5/5 X4 Ext, Cranial Nerves 3-12 NL, Reflexes 2+ Extremities: Trace pedal edema Assessment 76-year-old with history of hypertension, nonischemic cardiomyopathy, severe aortic stenosis currently being followed closely by cardiology as outpatient, diabetes, chronic kidney disease presenting with shortness of breath for last 5 days with poor by mouth intake and some chills. She presents hypotensive, fever with acute kidney injury and appears in septic shock. Echo performed this morning shows ejection fraction mostly unchanged with the critical aortic stenosis. After having discussion with the family and the patient she was reverted to full code. Patient was intubated to secure her airway and we will get a CAT scan of her chest and start patient on IV fluids. In the meantime continue dopamine drip and antibiotics. Plan Start IV fluids CAT scan chest without IV contrast Continue ceftriaxone and azithromycin Follow cultures Continue pressors Place central line if necessary Continue to monitor urine output Labs every 8 hours Critical care and cardiology consult Change CODE STATUS to full code Current Medications Sig/Louisa Start time Last Medication Dose Route Stop Time Status Admin Acetaminophen 650 MG Q6P PRN 12/19 0115 AC PO Acetaminophen 1,000 MG Q6P PRN 12/19 0115 AC 12/19 IV 0228 Aspirin 81 MG DAILY 12/19 1000 AC PO Azithromycin 500 MG Q24H 12/19 2300 AC Sodium Chloride 250 ML IV Azithromycin 500 MG ONCE ONE 12/18 2245 DC 12/18 Sodium Chloride 250 ML IV 12/18 2344 2302 Ceftriaxone Sodium 1,000 MG Q24H 12/20 0330 AC IV Ceftriaxone Sodium 1,000 MG ONCE ONE 12/19 0300 DC 12/19 IV 12/19 0301 0338 Dobutamine HCl 250 MG ONCE ONE 12/19 0630 DC 12/19 Dextrose/Water 250 ML IV 12/19 0631 0637 Dobutamine HCl 250 MG Q24H 12/19 0615 AC Dextrose/Water 250 ML IV Dobutamine HCl 250 MG Q24H 12/19 0600 DC Dextrose/Water 250 ML IV Dobutamine HCl 250 MG Q24H 12/19 0545 DC Dextrose/Water 250 ML IV Docusate Sodium 100 MG BID 12/19 1000 AC PO Furosemide 40 MG .STK-MED ONE 12/19 0352 DC IV 12/19 0353 Furosemide 40 MG ONCE ONE 12/19 0145 DC 12/19 IV PUSH 12/19 0146 0356 Heparin Sodium 0 .STK-MED ONE 12/19 0132 DC (Porcine) .ROUTE Heparin Sodium 5,000 UNIT Q8 12/19 0115 AC 12/19 (Porcine) SC 0139 Insulin Aspart 0 TIDAC 12/19 0800 AC SC Lorazepam 2 MG ONCE ONE 12/19 1130 CAN IV 12/19 1131 Lorazepam 2 MG ONE ONE 12/19 1130 DC IV 12/19 1131 Morphine Sulfate 2 MG Q4P PRN 12/19 0115 AC IV Sodium Chloride 1,000 ML Q10H 12/19 1100 AC IV Sodium Chloride 250 ML BOLUS ONE 12/19 0530 DC 12/19 IV 12/19 0629 0530 Sodium Chloride 250 ML BOLUS ONE 12/19 0245 DC 12/19 IV 12/19 0344 0300 Sodium Chloride 250 ML BOLUS ONE 12/19 0130 DC 12/19 IV 12/19 0229 0139 Sodium Chloride 1,000 ML Q13H 12/19 0100 DC 12/19 IV 0100 Sodium Chloride 1,000 ML BOLUS ONE 12/18 2245 CAN IV 12/18 2344 Sodium Chloride 1,000 ML BOLUS ONE 12/18 2145 DC 12/18 IV 12/18 2244 2205 Sodium Chloride 1,000 ML BOLUS ONE 12/18 2145 DC 12/18 IV 12/18 2244 2302 Vecuronium Hickman 10 MG ONCE ONE 12/19 1130 DC IV 12/19 1131 Laboratory Tests 12/19 12/19 12/19 1050 0909 0640 Blood Gas pH (7.35 - 7.45 PH) 7.18 *L 7.16 *L pCO2 (35 - 45 TORR) 41 43 pO2 (80 - 100 TORR) 95 103 H HCO3 (21 - 28 MEQ/L) 15 L 15 L ABG O2 Sat (Measured) (>96.0 %) 96.0 96.0 P-50 (Temp Corrected) N N Carboxyhemoglobin (1.5 - 5.0 %) 0.7 L 0.8 L O2 Concentration % 30 30% Temperature (97.0 - 100.0 FARH) 99.4 Respiration Rate (BPM) 30 16 O2 Delivery Method BIPAP BIPAP Vent Mode ST ST Expiratory Pressure (CM H2O P) 6 6 Inspiratory Pressure (CM H2O P) 12 12 Chemistry Lactic Acid (0.7 - 2.1 mmol/L) < 0.5 L Miscellaneous Phlebotomy Draw Site RIGHT RADIAL RIGHT RADIAL 12/19 12/19 12/19 0630 0300 0300 Chemistry Sodium (137 - 145 mmol/L) 141 Potassium (3.5 - 5.1 mmol/L) 5.6 H Chloride (98 - 107 mmol/L) 114 H Carbon Dioxide (22 - 30 mmol/L) 15 L Anion Gap (5 - 16) 13 BUN (7 - 17 mg/dL) 79 H Creatinine (0.5 - 1.0 mg/dL) 3.1 H Estimated GFR (>60 ml/min) 15 L BUN/Creatinine Ratio (7 - 25 %) 25.5 H Lactic Acid (0.7 - 2.1 mmol/L) 0.5 L Troponin I (< 0.11 ng/ml) 0.02 Hematology CBC w Diff NO MAN DIFF REQ WBC (4.8 - 10.8 /CUMM) 8.7 RBC (4.20 - 5.40 /CUMM) 3.18 L Hgb (12.0 - 16.0 G/DL) 9.5 L Hct (37 - 47 %) 28.4 L MCV (81.0 - 99.0 FL) 89.3 MCH (27.0 - 31.0 PG) 30.0 RDW (11.5 - 14.5 %) 13.6 Plt Count (130 - 400 /CUMM) 150 MPV (7.4 - 10.4 FL) 9.9 Gran % (42.2 - 75.2 %) 75.1 Lymphocytes % (20.5 - 51.1 %) 15.9 L Monocytes % (1.7 - 9.3 %) 7.1 Eosinophils % (0 - 5 %) 1.6 Basophils % (0.0 - 2.0 %) 0.3 Absolute Granulocytes (1.4 - 6.5 /CUMM) 6.5 Absolute Lymphocytes (1.2 - 3.4 /CUMM) 1.4 Absolute Monocytes (0.10 - 0.60 /CUMM) 0.6 Absolute Eosinophils (0.0 - 0.7 /CUMM) 0.1 Absolute Basophils (0.0 - 0.2 /CUMM) 0 PUBS MCHC (33.0 - 37.0 G/DL) 33.5 12/19 12/18 0137 2150 Chemistry Sodium (137 - 145 mmol/L) 139 Potassium (3.5 - 5.1 mmol/L) 5.5 H Chloride (98 - 107 mmol/L) 110 H Carbon Dioxide (22 - 30 mmol/L) 18 L Anion Gap (5 - 16) 12 BUN (7 - 17 mg/dL) 88 H Creatinine (0.5 - 1.0 mg/dL) 2.7 H Estimated GFR (>60 ml/min) 17 L BUN/Creatinine Ratio (7 - 25 %) 32.6 H Glucose (65 - 99 mg/dL) 143 H Lactic Acid (0.7 - 2.1 mmol/L) 0.6 L Calcium (8.4 - 10.2 mg/dL) 9.0 Total Bilirubin (0.2 - 1.3 mg/dL) 0.5 AST (14 - 36 U/L) 17 ALT (9 - 52 U/L) 31 Alkaline Phosphatase (<127 U/L) 47 Creatine Kinase (30 - 135 U/L) 82 Troponin I (< 0.11 ng/ml) 0.01 [id number]-Obyuknzblpv Pept (<125 pg/mL) 2460 H Total Protein (6.3 - 8.2 g/dL) 6.9 Albumin (3.5 - 5.0 g/dL) 4.0 Globulin (1.9 - 4.2 gm/dL) 2.9 Albumin/Globulin Ratio (1.1 - 2.2 %) 1.4 Hematology CBC w Diff NO MAN DIFF REQ WBC (4.8 - 10.8 /CUMM) 6.7 RBC (4.20 - 5.40 /CUMM) 3.80 L Hgb (12.0 - 16.0 G/DL) 11.3 L Hct (37 - 47 %) 33.5 L MCV (81.0 - 99.0 FL) 88.0 MCH (27.0 - 31.0 PG) 29.6 RDW (11.5 - 14.5 %) 14.0 Plt Count (130 - 400 /CUMM) 169 MPV (7.4 - 10.4 FL) 9.4 Gran % (42.2 - 75.2 %) 74.3 Lymphocytes % (20.5 - 51.1 %) 15.2 L Monocytes % (1.7 - 9.3 %) 5.4 Eosinophils % (0 - 5 %) 4.0 Basophils % (0.0 - 2.0 %) 1.1 Absolute Granulocytes (1.4 - 6.5 /CUMM) 4.9 Absolute Lymphocytes (1.2 - 3.4 /CUMM) 1.0 L Absolute Monocytes (0.10 - 0.60 /CUMM) 0.4 Absolute Eosinophils (0.0 - 0.7 /CUMM) 0.3 Absolute Basophils (0.0 - 0.2 /CUMM) 0.1 PUBS MCHC (33.0 - 37.0 G/DL) 33.6 Urines Urine Color (YEL,AMB,STR) YEL Urine Clarity (CLEAR) CLEAR Urine pH (5.0 - 8.0) 5.5 Ur Specific [place] (1.001 - 1.035) 1.025 Urine Protein (NEG,<30 MG/DL) NEG Urine Ketones (NEG) NEG Urine Nitrite (NEG) NEG Urine Bilirubin (NEG) NEG Urine Urobilinogen (0.1 - 1.0 EU/dl) 0.2 Ur Leukocyte Esterase (NEG) NEG Ur Microscopic EXAM NOT REQUIRED Urine Hemoglobin (NEG) NEG Urine Glucose (N MG/DL) NEG Vital Signs Date Time Temp Pulse Resp B/P B/P Pulse O2 O2 Flow FiO2 Mean Ox Delivery Rate 12/19 1122 50 12/19 0948 78 98 12/19 0924 87 98 12/19 0800 95 BIPAP 30% 12/19 0800 99.0 84 18 88/54 95 BIPAP 30% 12/19 0637 99.4 80 18 78/48 12/19 0626 79 96 12/19 0543 79 93 12/19 0527 99.1 78 18 68/00 94 BIPAP 30% 12/19 0418 80 17 72/00 BIPAP 30% 12/19 0332 100.2 12/19 0330 99.1 86 20 72/00 94 BIPAP 30% 12/19 0257 95 BIPAP 30% 12/19 0238 85 97 12/19 0233 101.3 87 22 84/50 93 Nasal 2.0L Cannula 12/19 0228 101.3 12/19 0217 93 Nasal 2.0L Cannula 12/19 0148 100.1 90 20 94/52 95 Nasal 2.0L Cannula 12/19 0109 100.0 89 21 85/47 91 Nasal 2.0L Cannula 12/19 0037 89 20 86/48 93 Nasal 2.0L Cannula 12/183 99.9 93 20 119/67 94 Nasal 2.0L Cannula 12/189 99.9 92 16 86/56 96 Room Air
--- NOTE | 2016-12-19 12:00 | NUR ---
After a meeting with the patient and family by Dr. Lino to discuss ABG results and plan of care, patients code status was changed to a Full code with a plan to intubate. At 1115, patient was intubated with a #8 ETT- 22cm at the right lip by anesthesia. OGT was also place and a CXR was done for placement confirmation. Vent settings AC 24/600/50/5. O2 sats 97-99%. Lungs clear and diminished. A scant amount of blood tinged secretions noted post intubation when suctioning thru the ETT. Vitals remained stable with an SBP of 120-140, HR= 90-100's. 2mg IV ativan and 5mg Iv vecuronioum given per order. Patient also received a 500mls normal saline bolus and then NS to infuse at 100mls/hr. Propofol gtt to be started and titrated up for a goal SAS of 3 per order. Dobutamine gtt remains infusing at 5mcg. [place] in place draining clear yellow urine with good output. A CT chest to be done this afternoon. Family updated on POC. All bracelets and rings were removed from patient and given to daughter. Vitals stable at this time. Will continue to closely monitor patient.
[2016-12-19 15:40] LABS: ABSOLUTE BASOPHIL COUNT 0 /CUMM (0.0-0.2); ABSOLUTE EOSINOPHIL COUNT 0.2 /CUMM (0.0-0.7); ABSOLUTE GRANULOCYTE CT 4.6 /CUMM (1.4-6.5); ABSOLUTE LYMPH COUNT 0.8 /CUMM (1.2-3.4); ABSOLUTE MONOCYTE COUNT 0.6 /CUMM (0.10-0.60); BASOPHIL % 0.4 % (0.0-2.0); EOSINOPHIL % 2.7 % (0-5); GRANULOCYTE % 74.2 % (42.2-75.2); HEMATOCRIT 29.8 % (37-47); MEAN CORPUSCULAR HGB CONC 33.9 G/DL (33.0-37.0); MEAN CORPUSCULAR VOLUME 88.5 FL (81.0-99.0); MEAN PLATELET VOLUME 10.1 FL (7.4-10.4); PLATELET COUNT 135 /CUMM (130-400); RBC DISTRIBUTION WIDTH 13.8 % (11.5-14.5); RED BLOOD CELL CT 3.37 /CUMM (4.20-5.40); WHITE BLOOD CELL COUNT 6.2 /CUMM (4.8-10.8)
[2016-12-19 16:00] VITALS: BP 122/64
--- NOTE | 2016-12-19 17:53 | NUR ---
Patient is sedated on a Propofol gtt currently infusing at 40mcg, SAS ranging from 2-4. Can move all extremities. Pupils are 2mm and sluggish. Soft bilateral wrist restraints in place. ST/1st degree AV block w/ BBB on tele monitor, HR= 90-100's. SBP ranging from 120-140's. Dobutamine gtt to continue to infuse at 5mcg per Dr. Rick. Remains intubated with a #8 to the right at 22cm. Lungs clear and diminished at the bases. O2 sats 96-99%. Scant amounts of blood tinged secretions noted orally and a moderate amount of clear thin secretions noted orally- Patient suctioned- a bite block remains in place. Vent settings remains AC 24/600/30/5. Abdomen is distended and soft with + bowel sounds. An OGT is in place to low wall suction with scant amounts of light brown output. NPO at this time. Last BM unknown. De [place] in place draining clear yellow urine with good output. Skin is intact with trace BLE edema noted. Patient was placed on a specialty ICU bed. NO s/s of pain currently noted. Patient traveled with this RN to CT scan for a CT head. She tolerated procedure well and vitals remained stable. Family remains at the bedside and has been updated frequently on plan of care by Dr. Logan. Will continue to closely monitor patient.
--- NOTE | 2016-12-19 19:12 | CT SCAN REPORT ---
EXAMINATION: CT CHEST WITHOUT CONTRAST CLINICAL INFORMATION: SOB, fever. COMPARISON: Chest x-ray 12/19/2016. TECHNIQUE: Multidetector volumetric CT imaging of the chest was done. Axial MIP volume rendering provided. Sagittal and coronal reformatted images were obtained. DLP: 790 mGy-cm. FINDINGS: LUNGS: There is bilateral lower lobe dependent consolidation/atelectasis. Rest of the lungs are expanded and clear. No pulmonary nodule or mass seen. MEDIASTINUM: An endotracheal tube is noted 1 cm above daisha. Nasogastric tube tip is below the diaphragm and stomach. Heart size is enlarged with tiny pericardial effusion. There are coronary artery mitral and aortic valve calcifications. Central trachea and bronchi are widely patent. The aorta is normal caliber. Nonspecific 1.3 cm left para-aortic lymph node. No additional lymph nodes seen. Mildly enlarged thyroid gland. PLEURA: There is a tiny right pleural effusion noted. AXILLA: No lymphadenopathy. UPPER ABDOMEN: Visualized liver, spleen and gallbladder appears unremarkable. OSSEOUS STRUCTURES: There is moderate spondylosis throughout the thoracic aorta. Vacuum disc phenomena and degenerative disc changes mid and lower dorsal spine. IMPRESSION: Bilateral lower lobe dependent consolidation/atelectasis with very tiny right pleural effusion. Reactive small left para-aortic lymph node. There is tiny pericardial effusion with cardiomegaly. Support lines and catheters as described above.
--- NOTE | 2016-12-19 19:52 | ECHOCARDIOGRAM REPORT ---
MADDIE MCMANUS Age: 76 : 1940 Gender: F Exam Date: 12/19/2016 09:46 Exam Location: [facility] Ht (in): 66 Wt (lb): 229 BSA: 2.24 BP: 88 / 54 Ordering Physician: HOANG PICKARD MD Referring Physician: Paddy Brandon MD Technologist: Kinsey Millard [facility] Room Number: 109 Indications: HYPOTENSION Rhythm: Sinus Technical Quality: fair FINDINGS Left Ventricle Left ventricular cavity size normal. Left ventricular wall thickness mildly increased. Mildly abnormal left ventricular ejection fraction estimated at 35-40%. Right Ventricle Normal right ventricular size and function. Right Atrium Normal right atrial size. Left Atrium Mild left atrial dilatation. Mitral Valve Moderate mitral annular calcification. Wcab-hg-ddoxilob mitral regurgitation. Aortic Valve Diffuse thickening of the aortic valve cusps with reduced excursion. Severe aortic stenosis. Trace to mild aortic regurgitation. Tricuspid Valve Tricuspid valve is normal in structure and function. Mild tricuspid regurgitation. Right ventricular systolic pressure estimated to be elevated at 40 mmHg. Pulmonic Valve Pulmonic valve not well visualized, grossly normal. Pericardium No pericardial effusion. Great Vessels Normal size aortic root. CONCLUSIONS Moderate reduction in left ventricular systolic function with mild concentric hypertrophy. Severe Aortic stenosis.Mild left atrial enlargement. Paddy Brandon M.D. (Electronically Signed) Final Date: 19 Dec 2016 19:51 MEASUREMENTS (Male / Female) Normal Values 2D ECHO LV Diastolic Diameter PLAX 5.3 cm 4.2 - 5.9 / 3.9 - 5.3 cm LV Systolic Diameter PLAX 3.9 cm 2.1 - 4.0 cm LV Fractional Shortening PLAX 26.4 % 25 - 46 % LV Ejection Fraction 2D Teich 51.3 % IVS Diastolic Thickness 1.4 cm LVPW Diastolic Thickness 1.4 cm LV Relative Wall Thickness 0.5 RV Internal Dim ED PLAX 2.7 cm 1.9 - 3.8 cm LVOT Diameter 2.2 cm Aortic Root Diameter 3.0 cm LA Systolic Diameter LX 4.4 cm 3.0 - 4.0 / 2.7 - 3.8 cm LA Volume 59.0 cm 18 - 58 / 22 - 52 cm Ascending Aorta Diameter 2.8 cm DOPPLER AV Peak Velocity 477.0 cm/s AV Peak Gradient 91.0 mmHg AV Mean Velocity 345.0 cm/s AV Mean Gradient 54.0 mmHg AV Velocity Time Integral 119.0 cm LVOT Peak Velocity 92.7 cm/s LVOT Peak Gradient 3.4 mmHg LVOT Mean Velocity 65.6 cm/s LVOT Mean Gradient 2.0 mmHg LVOT Velocity Time Integral 19.7 cm LVOT Stroke Volume 74.9 cm AV Area Cont Eq vti 0.6 cm AV Area Cont Eq pk 0.7 cm MV Peak Velocity 167.0 cm/s MV Peak Gradient 11.2 mmHg MV Mean Velocity 113.0 cm/s MV Mean Gradient 6.0 mmHg Mitral E Point Velocity 117.0 cm/s Mitral A Point Velocity 133.0 cm/s Mitral E to A Ratio 0.9 MV PHT Velocity 173.0 cm/s MV Deceleration [place] 933.0 cm/s MV Pressure Half Time 55.6 ms MV Area PHT 4.0 cm MV Deceleration Time 174.0 ms TR Peak Velocity 282.0 cm/s TR Peak Gradient 31.8 mmHg Right Atrial Pressure 10.0 mmHg Pulmonary Artery Systolic Pressu 41.8 mmHg Right Ventricular Systolic Press 41.8 mmHg PV Peak Velocity 126.0 cm/s PV Peak Gradient 6.4 mmHg PV Mean Velocity 84.2 cm/s PV Mean Gradient 3.0 mmHg PV Velocity Time Integral 25.9 cm LV E' Lateral Velocity 7.7 cm/s Mitral E to LV E' Lateral Ratio 15.3 LV E' Septal Velocity 8.4 cm/s Mitral E to LV E' Septal Ratio 13.9
--- NOTE | 2016-12-19 21:30 | Event Note ---
Event Note Event Note: Situation : positive troponin, no new St t wave changes on EKG. Brief : Troponin trend : 0.01 >>> 0.02>>>bumped upto to 1.47 Patient is intubated and cannot give any symptoms. Vitals : BP :146/80 HR : 100's RR : 30% fio2, saturation 95% Assesment/Plan. Case disucssed with Dr. Rick. We will not start iv heaprin. Could be possible 2/2 to demand. Further mx in AM per cardio. Will trend with am labs untill trending down.
[2016-12-20 05:07] LABS: ABSOLUTE BASOPHIL COUNT 0 /CUMM (0.0-0.2); ABSOLUTE EOSINOPHIL COUNT 0.1 /CUMM (0.0-0.7); ABSOLUTE GRANULOCYTE CT 5.6 /CUMM (1.4-6.5); ABSOLUTE LYMPH COUNT 0.9 /CUMM (1.2-3.4); ABSOLUTE MONOCYTE COUNT 0.7 /CUMM (0.10-0.60); BASOPHIL % 0.5 % (0.0-2.0); EOSINOPHIL % 1.6 % (0-5); GRANULOCYTE % 75.7 % (42.2-75.2); HEMATOCRIT 30.5 % (37-47); MEAN CORPUSCULAR HGB 30.5 PG (27.0-31.0); MEAN CORPUSCULAR HGB CONC 34.5 G/DL (33.0-37.0); MEAN CORPUSCULAR VOLUME 88.3 FL (81.0-99.0); MEAN PLATELET VOLUME 9.5 FL (7.4-10.4); PLATELET COUNT 134 /CUMM (130-400); RBC DISTRIBUTION WIDTH 13.8 % (11.5-14.5); RED BLOOD CELL CT 3.46 /CUMM (4.20-5.40); WHITE BLOOD CELL COUNT 7.4 /CUMM (4.8-10.8)
--- NOTE | 2016-12-20 06:52 | RADIOLOGY REPORT ---
EXAMINATION: CHEST 1 VIEW CLINICAL INFORMATION: Intubated. COMPARISON: Multiple prior exams are reviewed. The most recent is from 12/19/2016. TECHNIQUE: An AP view of the chest is provided. FINDINGS: The cardiac silhouette is stable. An endotracheal tube is in place. The tip is approximately 2.5 cm above the daisha. The enteric tube tip is difficult to discern, but below the diaphragm. The mediastinal and hilar contours are unremarkable. There are neither pleural effusions nor pneumothoraces. There is retrocardiac opacification. There is mild atelectasis at the right lung base. The osseous structures are unremarkable. IMPRESSION: Endotracheal tube and enteric tube in place. Retrocardiac opacification indicative of airspace disease, increased from prior exam.
--- NOTE | 2016-12-20 06:57 | PN- Resident CRCU ---
Subjective HPI/CRCU Issues: Ms. Tapia seen and examined at bedside this AM. She remains intubated and review of systems not able to be obtained. Patient was intubated around 11 AM yesterday. She remains on assist control ventilation wth TV 600, RR 24, FiO2 30% and 5 of PEEP. She has propofol for sedation while on the vent. 24 Hour Events: monitor technician showed: Occasional PVC with tachycardia. Vital signs over the last 24 hours: T 97.9-Tmax 99.7, HR 84-108, RR 18-30, BP 86-148/43-67, O2 95-100% on BiPAP transitioned to mechanical ventilation at 11 AM yesterday. Total Input: 3680 cc for the last 24 hours Urine output: 3350 cc for the last 24 hours Objective Vital Signs & I&O Last 8 Hrs of Vitals and I&O: Intake & Output 12/20 1600 Intake Total Output Total Balance Patient 233 lb Weight Weight Bed scale Measurement Method Exam General Appearance: no apparent distress, comfortable, sedated, intubated Head: atraumatic, normal appearance Ears, Nose, Throat: normal pharynx, Slightly dry mucous membranes Neck: normal inspection Respiratory: Decreased breath sounds bilaterally without over wheeze Cardiovascular: +DESTINI, +S1S2 Gastrointestinal: normal bowel sounds, soft, non-tender Extremities: Trace pedal edema Cranial Nerves: No facial asymmetry, patient sedated so unable to perform CN testing Skin: normal color, warm/dry IV Drips IV Drips: Propofol drip NS at 100 cc/h Dobutamine drip Nutrition Nutrition: NPO Current Medications: Current Medications Sig/Louisa Start time Last Medication Dose Route Stop Time Status Admin Acetaminophen 650 MG Q6P PRN 12/19 0115 AC PO Acetaminophen 1,000 MG Q6P PRN 12/19 0115 AC 12/19 IV 0228 Aspirin 81 MG DAILY 12/19 1000 AC 12/20 PO 0830 Azithromycin 500 MG Q24H 12/19 2300 AC 12/19 Sodium Chloride 250 ML IV 2203 Ceftriaxone Sodium 1,000 MG Q24H 12/20 0330 AC 12/20 IV 0313 Dobutamine HCl 250 MG Q24H 12/19 0615 AC 12/20 Dextrose/Water 250 ML IV 0839 Docusate Sodium 100 MG BID 12/19 1000 DC PO Heparin Sodium 5,000 UNIT Q8 05/14 0115 AC 12/20 (Porcine) SC 0601 Insulin Aspart 0 TIDAC 12/19 0800 DC SC Insulin Human Regular 0 Q6 12/19 1203 DC SC Insulin Human Regular 0 Q6 12/19 1203 AC SC Lorazepam 2 MG ONCE ONE 12/19 1130 CAN IV 12/19 1131 Lorazepam 2 MG ONE ONE 12/19 1130 DC 12/19 IV 12/19 1131 1130 Magnesium Sulfate 1 GM ONCE ONE 12/20 0615 AC 12/20 Dextrose/Water 100 ML IV 12/20 1014 0829 Magnesium Sulfate 1 GM ONCE ONE 12/20 0615 AC 12/20 Dextrose/Water 100 ML IV 12/20 1014 0613 Morphine Sulfate 2 MG Q4P PRN 12/19 0115 AC 12/20 IV 0837 Non-Formulary 0 SEE ADMIN CRITERIA 12/19 1230 DC Medication ANY Pantoprazole Sodium 40 MG DAILY 12/20 1000 AC 12/20 IV 0830 Propofol 1,000 MG Q12H 12/19 1245 AC 12/20 N/A 100 ML IV 0613 Propofol 1,000 MG .STK-MED ONE 12/19 1219 DC IV 12/19 1220 Sodium Chloride 1,000 ML Q10H 12/19 1100 AC 12/20 IV 0314 Sodium Chloride 500 ML BOLUS ONE 12/19 1100 DC 12/19 IV 12/19 1159 1100 Vecuronium [place] 10 MG ONCE ONE 12/19 1130 DC 12/19 IV 12/19 1131 1130 Results Results: BC x 2: NGTD Rapid Flu: Negative UC: Pending LRC: Pending CXR Findings: IMPRESSION: Endotracheal tube and enteric tube in place. Retrocardiac opacification indicative of airspace disease, increased from prior exam. EKG Findings: Sinus tachycardia HR 110 bpm, LBBB, QTC 531, T wave inversions leads I, aVL, V6 CT Scan Findings: Chest CT: IMPRESSION: Bilateral lower lobe dependent consolidation/atelectasis with very tiny right pleural effusion. Reactive small left para-aortic lymph node. There is tiny pericardial effusion with cardiomegaly. Support lines and catheters as described above. ECHO Findings: CONCLUSIONS Moderate reduction in left ventricular systolic function with mild concentric hypertrophy. Severe Aortic stenosis.Mild left atrial enlargement.Moderate Motral regurgitations and probably mild mitral stenosis. Impression/Plan Impression/Problem List Impression: Ms. 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 She was initially admitted to the telemetry floor for shortness of rbeath secondary to acute decompensated heart failure and fever of unknown etiology. She was transferred to the ICU the following day due to hemodynamic instability. Vital signs on admission: T 99.9, HR 92, RR 16, BP 86-56/ and O2 saturation of 96% on room air. Labs were significant for: CBC unremarkable, Na 139, K 5.5, BUN 88, Cre 2.7, proBNP 2460. CXR was significant for cardiomegaly and left-sided retrocardiac opacity. EKG showed NSR HR 93, old LBBB, QTC 488. Patient is currently in the ICU and the following is the management: 1. Hypotension, cardiogenic vs septic * Patient did have Tmax 101.3 on admission, though no leukocytosis or clear source of infection * Follow BC x2, LRC, UCx; rapid flu negative * Stop IV ceftriaxone and IV azithromycin after today * Continue dobutamine drip for hemodynamic instability along with D51/2NS at 50 cc/h * BP currently stable, follow vital signs closely * Cardio following, follow up recommendations * Continuous telemetry monitoring, close vital sign monitoring * Hold aplkn-qb-whuhxyygj lisinopril adn carvedilol in the setting of hypotension 2. Acute hypoxic respiratory failure secondary to decompensated CHF vs community acquired PNA * Echo about 6 months ago showed severe aortic stenosis and LVEF of 40-45%. Chest x-ray showed evidence of volume overload and cardiomegaly. 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 * Due to uncompensated metabolic acidosis, patient was intubated; continue mechanical ventilation for now * Continue propofol drip for sedation, IV protonix while vented * Repeat echo showed EF 35-40%, severe (consider TAVR) * Patient received 40 mg IV lasix x1, repeat lasix 40 mg IV once today as per cardio * F/U repeat CXR in AM 3. Elevated troponins * Likely represent demand ischemia in the setting of hypotension * Troponins peaked at 1.47 * Follow up cardiology recommendations * Echo showed EF 35-40%, severe * Continue ASA 81 mg PO daily 4. Aortic stenosis, severe * Cardio consult appreciated * Cardiology suggested TAVR vs comfort measures 5. WEN on CKD * Creatinine 2.7 on initial presentation, increased from baseline of 1.4. Likely secondary to hypoperfusion in the setting of decompensated CHF. * Hold wogjv-vq-raonrebyd lisinopril. * Continue IVF for now * Trend BUN/cre daily 6. Hyperkalemia: * K 5.5 on admission, likely 2/2 renal insufficiency * Trend ICU bundle daily 7. Non-insulin dependant DM * Hold oral hypoglycemic glipizide ER 2.5 mg PO BID while inpatient * Accuchecks Q6 * Continue regular insulin Q6 while patient NPO FULL CODE DVTP: Heparin SC Diet: NPO Mild to severe pain pathway Problem List: 1. Hyperkalemia 2. Acute on chronic kidney failure 3. Non-insulin dependent type 2 diabetes mellitus 4. CHF (congestive heart failure) 5. Acute hypoxemic respiratory failure 6. Cardiogenic shock Pain Ratin Tomorrow's Labs & Rationales: CBC (critically ill) ICU bundle (WEN on CKD) Plan DVT/Prophylaxis: pharmacological (Heparin SC)
--- NOTE | 2016-12-20 07:45 | PN- CRCU ---
Objective Current Medications: Current Medications Sig/Louisa Start time Last Medication Dose Route Stop Time Status Admin Acetaminophen 650 MG Q6P PRN 12/19 0115 AC PO Acetaminophen 1,000 MG Q6P PRN 12/19 0115 AC 12/19 IV 0228 Aspirin 81 MG DAILY 12/19 1000 AC PO Azithromycin 500 MG Q24H 12/19 2300 AC 12/19 Sodium Chloride 250 ML IV 2203 Ceftriaxone Sodium 1,000 MG Q24H 12/20 0330 AC 12/20 IV 0313 Dobutamine HCl 250 MG Q24H 12/19 0615 AC 12/19 Dextrose/Water 250 ML IV 2252 Docusate Sodium 100 MG BID 12/19 1000 AC PO Heparin Sodium 5,000 UNIT Q8 12/19 0115 AC 12/20 (Porcine) SC 0601 Insulin Aspart 0 TIDAC 12/19 0800 DC SC Insulin Human Regular 0 Q6 12/19 1203 DC SC Insulin Human Regular 0 Q6 12/19 1203 AC SC Lorazepam 2 MG ONCE ONE 12/19 1130 CAN IV 12/19 1131 Lorazepam 2 MG ONE ONE 12/19 1130 DC 12/19 IV 12/19 1131 1130 Magnesium Sulfate 1 GM ONCE ONE 12/20 0615 AC Dextrose/Water 100 ML IV 12/20 1014 Magnesium Sulfate 1 GM ONCE ONE 12/20 0615 AC 12/20 Dextrose/Water 100 ML IV 12/20 1014 0613 Morphine Sulfate 2 MG Q4P PRN 12/19 0115 AC IV Non-Formulary 0 SEE ADMIN CRITERIA 12/19 1230 DC Medication ANY Propofol 1,000 MG Q12H 12/19 1245 AC 12/20 N/A 100 ML IV 0613 Propofol 1,000 MG .STK-MED ONE 12/19 1219 DC IV 12/19 1220 Sodium Chloride 1,000 ML Q10H 12/19 1100 AC 12/20 IV 0314 Sodium Chloride 500 ML BOLUS ONE 12/19 1100 DC 12/19 IV 12/19 1159 1100 Vecuronium [place] 10 MG ONCE ONE 12/19 1130 DC 12/19 IV 12/19 1131 1130 Vital Signs & I&O Last 24 Hrs of Vitals and I&O: Vital Signs Date Time Temp Pulse Resp B/P B/P Pulse O2 O2 Flow FiO2 Mean Ox Delivery Rate 12/20 0607 30 12/20 0400 98 Ventilator 30% 12/20 0305 30 12/20 0112 30 12/20 0000 98 Ventilator 30% 12/19 2252 104 124/63 05 2153 30 12/19 2000 98 Ventilator 30% 12/19 1830 30 12/19 1608 30 12/19 1600 99.0 109 24 122/64 98 Ventilator 30% 12/19 1600 96 Ventilator 30% 12/19 1515 17 136/67 05/ 1444 100 Ventilator 30% 12/19 1331 40 12/19 1200 100 Ventilator 50% 12/19 1122 50 12/19 0948 78 98 12/19 0924 87 98 12/19 0800 95 BIPAP 30% 12/19 0800 99.0 84 18 88/54 95 BIPAP 30% Intake & Output 12/20 0800 12/20 0000 12/19 1600 Intake Total 1423 1199 1058 Output Total 1200 1500 650 Balance 223 -301 408 Intake, IV 1423 1199 1058 Number 1 Bowel Movements Output, Urine 1200 1500 650 Physical Exam General Appearance: intubated, sedated, obese Head: atraumatic, normal appearance Ears, Nose, Throat: normal pharyn Neck: normal inspection Respiratory: bilateral crackles, decreased breath sounds bilaterally Cardiovascular: systolic murmur (s1s2 HEARD) Gastrointestinal: normal bowel sounds, soft, nontender Back: normal inspection Extremities: normal inspection, TRACE PEDAL EDEMA Results Last 24 Hrs of Lab Results: Laboratory Tests 12/20/16 0505: pH 7.42, pCO2 20 L, pO2 93, HCO3 13 L, ABG O2 Sat (Measured) 96.0, P-50 (Temp Corrected) Y, Carboxyhemoglobin 0.3 L, O2 Concentration % 30%, Temperature 99.2 , Respiration Rate 24, O2 Delivery Method ESPRIT, Vent Mode AC, Expiratory Pressure 5, Tidal Volume 600, Phlebotomy Draw Site RIGHT RADIAL 12/20/16 0420: Anion Gap 14, Estimated GFR 22 L, Glucose 134 H, Calcium 8.3 L, Phosphorus 3.6, Magnesium 1.5 L, Total Bilirubin 0.4, AST 16, ALT 27, Troponin I 1.01 *H, Albumin 2.8 L, CBC w Diff NO MAN DIFF REQ, RBC 3.46 L, MCV 88.3, MCH 30.5, RDW 13.8, MPV 9.5, Gran % 75.7 H, Lymphocytes % 12.4 L, Monocytes % 9.8 H, Eosinophils % 1.6, Basophils % 0.5, Absolute Granulocytes 5.6, Absolute Lymphocytes 0.9 L, Absolute Monocytes 0.7 H, Absolute Eosinophils 0.1, Absolute Basophils 0, PUBS MCHC 34.5 12/19/16 1900: Troponin I 1.47 *H 12/19/16 1405: Anion Gap 15, Estimated GFR 16 L, Glucose 89, Calcium 8.4, Phosphorus 5.0 H, Magnesium 1.7, Total Bilirubin 0.4, AST 17, ALT 22, Albumin 3.2 L, CBC w Diff NO MAN DIFF REQ, RBC 3.37 L, MCV 88.5, MCH 30.0, RDW 13.8, MPV 10.1, Gran % 74.2, Lymphocytes % 13.2 L, Monocytes % 9.5 H, Eosinophils % 2.7, Basophils % 0.4, Absolute Granulocytes 4.6, Absolute Lymphocytes 0.8 L, Absolute Monocytes 0.6, Absolute Eosinophils 0.2, Absolute Basophils 0, PUBS MCHC 33.9 12/19/16 1220: pH 7.37, pCO2 19 L, pO2 208 H, HCO3 11 L, ABG O2 Sat (Measured) 98.0, P-50 ( Temp Corrected) N, Carboxyhemoglobin 0.6 L, O2 Concentration % 50, Temperature 97.0, Respiration Rate 24, O2 Delivery Method VENT, Vent Mode VC-AC, Expiratory Pressure 5, Tidal Volume 600, Phlebotomy Draw Site RIGHT RADIAL 12/19/16 1050: pH 7.18 *L, pCO2 41, pO2 95, HCO3 15 L, ABG O2 Sat (Measured) 96.0, P-50 (Temp Corrected) N, Carboxyhemoglobin 0.7 L, O2 Concentration % 30, Respiration Rate 30, O2 Delivery Method BIPAP, Vent Mode ST, Expiratory Pressure 6, Inspiratory Pressure 12, Phlebotomy Draw Site RIGHT RADIAL 12/19/16 1000: Sodium Cancelled, Potassium Cancelled, Chloride Cancelled, Carbon Dioxide Cancelled, Anion Gap Cancelled, BUN Cancelled, Creatinine Cancelled, Glucose Cancelled, Calcium Cancelled, Phosphorus Cancelled, Magnesium Cancelled, Total Bilirubin Cancelled, AST Cancelled, ALT Cancelled, Albumin Cancelled 12/19/16 0909: pH 7.16 *L, pCO2 43, pO2 103 H, HCO3 15 L, ABG O2 Sat (Measured) 96.0, P-50 ( Temp Corrected) N, Carboxyhemoglobin 0.8 L, O2 Concentration % 30%, Temperature 99.4, Respiration Rate 16, O2 Delivery Method BIPAP, Vent Mode ST, Expiratory Pressure 6, Inspiratory Pressure 12, Phlebotomy Draw Site RIGHT RADIAL Diagnostic Data CXR Findings: Endotracheal tube and enteric tube in place. Retrocardiac opacification indicative of airspace disease, increased from prior exam. Endotracheal tube and enteric tube in place. Retrocardiac opacification indicative of airspace disease, increased from prior exam. Impression/Plan Impression/Plan Impression/Plan: 1. Acute hypoxemic requested failure secondary to decompensated congestive heart failure/nonischemic cardiac myopathy. Bilateral lower lobe consolidation/ atelectasis. 2. Septic shock versus cardiogenic shock. 3. Acute on chronic kidney injury. 4. Dfh-vucunou-omyehmlqc diabetes. 5. Severe aortic stenosis. Recommendations: * Decrease respiratory rate to 20 breaths per minute. *
[2016-12-20 08:00] VITALS: BP 112/70
--- NOTE | 2016-12-20 09:39 | PN- Cardiology ---
Subjective Subjective: Patient intubated The events of the last 24 hours as well as telemetry were reviewed Bedside echocardiogram was reviewed. There is severe aortic stenosis with a mean gradient of 54 The LV function is as well moderately reduced with an LVEF of between 35 and 40% Review of Systems: The review of systems is negative for chest pains, palpitations nor lightheadedness. A full comprehensive review of systems is unable to be obtained as the patient is intubated and sedated Objective Vital Signs and I&Os Vital Signs Date Time Temp Pulse Resp B/P B/P Pulse O2 O2 Flow FiO2 Mean Ox Delivery Rate 12/20 0839 103 112/70 12/20 0825 30 12/20 0607 30 12/20 0400 98 Ventilator 30% 12/20 0305 30 12/20 0112 30 05 0000 98 Ventilator 30% 12/19 2252 104 124/63 12/19 2153 30 12/19 2000 98 Ventilator 30% 12/19 1830 30 12/19 1608 30 12/19 1600 99.0 109 24 122/64 98 Ventilator 30% 12/19 1600 96 Ventilator 30% 12/19 1515 17 136/67 12/19 1444 100 Ventilator 30% 12/19 1331 40 12/19 1200 100 Ventilator 50% 12/19 1122 50 12/19 0948 78 98 Intake & Output 12/20 1600 15 0800 /15 0000 14 1600 14 0800 12/19 0000 Intake Total 1423 1199 1058 31.2 2250 Output Total 1200 1500 650 725 Balance 223 -301 408 -693.8 2250 Intake, IV 1423 1199 1058 31.2 2250 Intake, Oral 0 Number 1 0 Bowel Movements Output, Urine 1200 1500 650 725 Patient 229 lb 210 lb Weight Weight Bed scale Reported by Patient Measurement Method Physical Exam: General: Nontoxic, no apparent distress. HEENT: Sclera and conjunctiva within normal limits, without xanthelasmas. Neck: Carotids 2+ without bruits. Respiratory: Presented, scattered rhonchi and rales, without accessory respiratory muscle use. Heart: Regular rate and rhythm, 2/6 systolic ejection murmur at the left sternal border as well as a soft crescendo decrescendo murmur at the right sternal border (masked by ventilation sounds), without JVD. Abdomen: Soft, nontender, no masses, normoactive bowel sounds. Extremities: Without clubbing, cyanosis. Neuro: Unable to fully obtain as the patient is sedated and intubated Skin: Within normal limits without lesions. Psych: Mood and affect: Unable to assess Current Medications: Current Medications Sig/Louisa Start time Last Medication Dose Route Stop Time Status Admin Acetaminophen 650 MG Q6P PRN 12/19 0115 AC PO Acetaminophen 1,000 MG Q6P PRN 12/19 0115 AC 12/19 IV 0228 Aspirin 81 MG DAILY 12/19 1000 AC 12/20 PO 0830 Azithromycin 500 MG Q24H 12/19 2300 AC 12/19 Sodium Chloride 250 ML IV 2203 Ceftriaxone Sodium 1,000 MG Q24H 12/20 0330 AC 12/20 IV 0313 Dobutamine HCl 250 MG Q24H 12/19 0615 AC 12/20 Dextrose/Water 250 ML IV 0839 Docusate Sodium 100 MG BID 12/19 1000 DC PO Heparin Sodium 5,000 UNIT Q8 12/19 0115 AC 12/20 (Porcine) SC 0601 Insulin Aspart 0 TIDAC 12/19 0800 DC SC Insulin Human Regular 0 Q6 12/19 1203 DC SC Insulin Human Regular 0 Q6 12/19 1203 AC SC Lorazepam 2 MG ONCE ONE 12/19 1130 CAN IV 12/19 1131 Lorazepam 2 MG ONE ONE 12/19 1130 DC 12/19 IV 12/19 1131 1130 Magnesium Sulfate 1 GM ONCE ONE 12/20 0615 AC 12/20 Dextrose/Water 100 ML IV 12/20 1014 0829 Magnesium Sulfate 1 GM ONCE ONE 12/20 0615 AC 12/20 Dextrose/Water 100 ML IV 12/20 1014 0613 Morphine Sulfate 2 MG Q4P PRN 12/19 0115 AC 12/20 IV 0837 Non-Formulary 0 SEE ADMIN CRITERIA 12/19 1230 DC Medication ANY Pantoprazole Sodium 40 MG DAILY 12/20 1000 AC 12/20 IV 0830 Propofol 1,000 MG Q12H 12/19 1245 AC 12/20 N/A 100 ML IV 0613 Propofol 1,000 MG .STK-MED ONE 12/19 1219 DC IV 12/19 1220 Sodium Chloride 1,000 ML Q10H 12/19 1100 AC 12/20 IV 0314 Sodium Chloride 500 ML BOLUS ONE 12/19 1100 DC 12/19 IV 12/19 1159 1100 Vecuronium Ovid 10 MG ONCE ONE 12/19 1130 DC 12/19 IV 12/19 1131 1130 Results Last 48 Hrs of Labs/Mics: Laboratory Tests 12/20/16 0505: pH 7.42, pCO2 20 L, pO2 93, HCO3 13 L, ABG O2 Sat (Measured) 96.0, P-50 (Temp Corrected) Y, Carboxyhemoglobin 0.3 L, O2 Concentration % 30%, Temperature 99.2 , Respiration Rate 24, O2 Delivery Method ESPRIT, Vent Mode AC, Expiratory Pressure 5, Tidal Volume 600, Phlebotomy Draw Site RIGHT RADIAL 12/20/16 0420: Anion Gap 14, Estimated GFR 22 L, Glucose 134 H, Calcium 8.3 L, Phosphorus 3.6, Magnesium 1.5 L, Total Bilirubin 0.4, AST 16, ALT 27, Troponin I 1.01 *H, Albumin 2.8 L, CBC w Diff NO MAN DIFF REQ, RBC 3.46 L, MCV 88.3, MCH 30.5, RDW 13.8, MPV 9.5, Gran % 75.7 H, Lymphocytes % 12.4 L, Monocytes % 9.8 H, Eosinophils % 1.6, Basophils % 0.5, Absolute Granulocytes 5.6, Absolute Lymphocytes 0.9 L, Absolute Monocytes 0.7 H, Absolute Eosinophils 0.1, Absolute Basophils 0, PUBS MCHC 34.5 12/19/16 1900: Troponin I 1.47 *H 12/19/16 1405: Anion Gap 15, Estimated GFR 16 L, Glucose 89, Calcium 8.4, Phosphorus 5.0 H, Magnesium 1.7, Total Bilirubin 0.4, AST 17, ALT 22, Albumin 3.2 L, CBC w Diff NO MAN DIFF REQ, RBC 3.37 L, MCV 88.5, MCH 30.0, RDW 13.8, MPV 10.1, Gran % 74.2, Lymphocytes % 13.2 L, Monocytes % 9.5 H, Eosinophils % 2.7, Basophils % 0.4, Absolute Granulocytes 4.6, Absolute Lymphocytes 0.8 L, Absolute Monocytes 0.6, Absolute Eosinophils 0.2, Absolute Basophils 0, PUBS MCHC 33.9 12/19/16 1220: pH 7.37, pCO2 19 L, pO2 208 H, HCO3 11 L, ABG O2 Sat (Measured) 98.0, P-50 ( Temp Corrected) N, Carboxyhemoglobin 0.6 L, O2 Concentration % 50, Temperature 97.0, Respiration Rate 24, O2 Delivery Method VENT, Vent Mode VC-AC, Expiratory Pressure 5, Tidal Volume 600, Phlebotomy Draw Site RIGHT RADIAL 12/19/16 1050: pH 7.18 *L, pCO2 41, pO2 95, HCO3 15 L, ABG O2 Sat (Measured) 96.0, P-50 (Temp Corrected) N, Carboxyhemoglobin 0.7 L, O2 Concentration % 30, Respiration Rate 30, O2 Delivery Method BIPAP, Vent Mode ST, Expiratory Pressure 6, Inspiratory Pressure 12, Phlebotomy Draw Site RIGHT RADIAL 12/19/16 1000: Sodium Cancelled, Potassium Cancelled, Chloride Cancelled, Carbon Dioxide Cancelled, Anion Gap Cancelled, BUN Cancelled, Creatinine Cancelled, Glucose Cancelled, Calcium Cancelled, Phosphorus Cancelled, Magnesium Cancelled, Total Bilirubin Cancelled, AST Cancelled, ALT Cancelled, Albumin Cancelled 12/19/16 0909: pH 7.16 *L, pCO2 43, pO2 103 H, HCO3 15 L, ABG O2 Sat (Measured) 96.0, P-50 ( Temp Corrected) N, Carboxyhemoglobin 0.8 L, O2 Concentration % 30%, Temperature 99.4, Respiration Rate 16, O2 Delivery Method BIPAP, Vent Mode ST, Expiratory Pressure 6, Inspiratory Pressure 12, Phlebotomy Draw Site RIGHT RADIAL 12/19/16 0640: Lactic Acid < 0.5 L 12/19/16 0630: Anion Gap 13, Estimated GFR 15 L, BUN/Creatinine Ratio 25.5 H, CBC w Diff NO MAN DIFF REQ, RBC 3.18 L, MCV 89.3, MCH 30.0, RDW 13.6, MPV 9.9, Gran % 75.1, Lymphocytes % 15.9 L, Monocytes % 7.1, Eosinophils % 1.6, Basophils % 0.3, Absolute Granulocytes 6.5, Absolute Lymphocytes 1.4, Absolute Monocytes 0.6, Absolute Eosinophils 0.1, Absolute Basophils 0, PUBS MCHC 33.5 12/19/16 0300: Troponin I 0.02 12/19/16 0300: Lactic Acid 0.5 L 12/19/16 0137: Urine Color YEL, Urine Clarity CLEAR, Urine pH 5.5, Ur Specific [place] 1.025, Urine Protein NEG, Urine Ketones NEG, Urine Nitrite NEG, Urine Bilirubin NEG, Urine Urobilinogen 0.2, Ur Leukocyte Esterase NEG, Ur Microscopic EXAM NOT REQUIRED, Urine Hemoglobin NEG, Urine Glucose NEG 12/18/16 2150: Anion Gap 12, Estimated GFR 17 L, BUN/Creatinine Ratio 32.6 H, Glucose 143 H, Lactic Acid 0.6 L, Calcium 9.0, Total Bilirubin 0.5, AST 17, ALT 31, Alkaline Phosphatase 47, Creatine Kinase 82, Troponin I 0.01, [id number]-[id number] Pept 2460 H, Total Protein 6.9, Albumin 4.0, Globulin 2.9, Albumin/Globulin Ratio 1.4, CBC w Diff NO MAN DIFF REQ, RBC 3.80 L, MCV 88.0, MCH 29.6, RDW 14.0, MPV 9.4, Gran % 74.3, Lymphocytes % 15.2 L, Monocytes % 5.4, Eosinophils % 4.0, Basophils % 1.1, Absolute Granulocytes 4.9, Absolute Lymphocytes 1.0 L, Absolute Monocytes 0.4, Absolute Eosinophils 0.3, Absolute Basophils 0.1, PUBS MCHC 33.6 Microbiology 12/19 06 UPPER RESP: Surveillance Culture - COMP 12/19 629 GI: Surveillance Culture - COMP 12/20 135 NASOPHARYN: Influenza Virus A & B Rapid Smear - COMP Assessment/Plan Assessment/Plan The patient is a 76-year-old woman with known aortic stenosis who presents with acute on chronic congestive heart failure, fevers with possible pneumonia and hypotension. Her course is as well, given by acute on chronic kidney injury. Her initial CODE STATUS was listed as DNR DNI; however, currently she remains intubated. Hypotension, congestive heart failure: Likely due to underlying aortic stenosis, with possible exacerbation by pneumonia/sepsis. She has evidence of significant fluid overload and I would therefore attempt diuresis with IV Lasix as tolerated from a blood pressure standpoint. Given the severity of her aortic stenosis, this will need to be addressed through either a procedure such as a TAVR, versus changing her status to comfort/palliative. Regardless, intervention of her aortic valve will need to be deferred until all acute infectious issues have resolved. Pneumonia/sepsis: The patient presented with an elevated temperature of 101.3 and has had a MAXIMUM TEMPERATURE of 99 over the past 24 hours. She will continue treatment for presumed pneumonia with empiric antibiotics as per the ID team and the ICU care team. Aortic stenosis: The patient has severe aortic stenosis which will need to be addressed both in regards to her previous CODE STATUS/care goals as well as following resolution of any possible infectious etiology. Acute kidney injury: Possibly secondary to a prerenal state due to her aortic stenosis. We will continue with IV dobutamine for now; however, diuresis with IV Lasix will need to be attempted. Discussion regarding intervention for her aortic valve will as well our discussion of possible hemodialysis. Continue telemetry? Yes
--- NOTE | 2016-12-20 13:56 | PN- CRCU ---
Subjective HPI/Critical Care Issues: he events of the last 24 hours as well as telemetry were reviewed Bedside echocardiogram was reviewed. There is severe aortic stenosis with a mean gradient of 54 The LV function is as well moderately reduced with an LVEF of between 35 and 40% Review of Systems: The review of systems is negative for chest pains, palpitations nor lightheadedness. A full comprehensive review of systems is unable to be obtained as the patient is intubated and sedated Objective Current Medications: Current Medications Sig/Louisa Start time Last Medication Dose Route Stop Time Status Admin Acetaminophen 650 MG Q6P PRN 12/19 0115 AC PO Acetaminophen 1,000 MG Q6P PRN 12/19 0115 AC 12/19 IV 0228 Aspirin 81 MG DAILY 12/19 1000 AC 12/20 PO 0830 Azithromycin 500 MG Q24H 12/19 2300 AC 12/19 Sodium Chloride 250 ML IV 2203 Ceftriaxone Sodium 1,000 MG Q24H 12/20 0330 AC 12/20 IV 0313 Dobutamine HCl 250 MG Q24H 12/19 0615 AC 12/20 Dextrose/Water 250 ML IV 0839 Docusate Sodium 100 MG BID 12/19 1000 DC PO Furosemide 40 MG ONCE ONE 12/20 1000 DC 12/20 IV 12/20 1001 0953 Heparin Sodium 5,000 UNIT Q8 12/19 0115 AC 12/20 (Porcine) SC 0601 Insulin Human Regular 0 Q6 12/19 1203 AC SC Magnesium Sulfate 1 GM ONCE ONE 12/20 0615 DC 12/20 Dextrose/Water 100 ML IV 12/20 1014 0829 Magnesium Sulfate 1 GM ONCE ONE 12/20 0615 DC 12/20 Dextrose/Water 100 ML IV 12/20 1014 0613 Morphine Sulfate 2 MG Q4P PRN 12/19 0115 AC 12/20 IV 0837 Pantoprazole Sodium 40 MG DAILY 12/20 1000 AC 12/20 IV 0830 Propofol 1,000 MG .STK-MED ONE 12/20 0146 DC IV 12/20 0147 Propofol 1,000 MG Q12H 12/19 1245 AC 12/20 N/A 100 ML IV 0613 Sodium Chloride 1,000 ML Q10H 12/19 1100 AC 12/20 IV 0314 Vital Signs & I&O Last 24 Hrs of Vitals and I&O: Vital Signs Date Time Temp Pulse Resp B/P B/P Pulse O2 O2 Flow FiO2 Mean Ox Delivery Rate 12/20 1229 30 12/20 0839 103 112/70 05/ 0825 30 12/20 0800 97 Ventilator 30% 12/20 0800 98.0 103 24 112/70 97 Ventilator 30% 12/20 0607 30 12/20 0400 98 Ventilator 30% 12/20 0305 30 12/20 0112 30 05/15 0000 98 Ventilator 30% 12/19 2252 104 124/63 05/ 2153 30 12/19 2000 98 Ventilator 30% 12/19 1830 30 12/19 1608 30 12/19 1600 99.0 109 24 122/64 98 Ventilator 30% 12/19 1600 96 Ventilator 30% 12/19 1515 17 136/67 05 1444 100 Ventilator 30% Intake & Output 12/20 1600 12/20 0800 12/20 0000 Intake Total 1423 1199 Output Total 1200 1500 Balance 223 -301 Intake, IV 1423 1199 Number 1 Bowel Movements Output, Urine 1200 1500 Patient 233 lb Weight Weight Bed scale Measurement Method Impression/Plan Impression/Plan Impression/Plan: Physical Exam: General: Nontoxic, no apparent distress. HEENT: Sclera and conjunctiva within normal limits, without xanthelasmas. Neck: Carotids 2+ without bruits. Respiratory: Presented, scattered rhonchi and rales, without accessory respiratory muscle use. Heart: Regular rate and rhythm, 2/6 systolic ejection murmur at the left sternal border as well as a soft crescendo decrescendo murmur at the right sternal border (masked by ventilation sounds), without JVD. Abdomen: Soft, nontender, no masses, normoactive bowel sounds. Extremities: Without clubbing, cyanosis. Neuro: Unable to fully obtain as the patient is sedated and intubated Skin: Within normal limits without lesions. Psych: Mood and affect: Unable to assess This is a lady with the significant cardiomyopathy, chronic left bundle branch block, critical aortic stenosis, chronic kidney disease, previous history of obstructive sleep apnea, hyperlipidemia, diabetes, multiple degenerative joint disease, chronic venous insufficiency in the past, previous gastric bypass surgery and hysterectomy and left total knee replacement with a hip replacement, now has Acute hypoxemic respiratory failure related to significant congestive heart failure due to severe cardiomyopathy. Patient has acute systolic congestive heart failure Critical aortic stenosis Chronic kidney disease which is slowly improving Initial temperature 101 with no clinical evidence suggestive of significant pneumonia as she does not have any purulent secretions etc. Chronic kidney disease with acute renal failure with slowly improving Cardiogenic shock, now on dobutamine Diabetes, hyperlipidemia and hypertension RECOMMENDATION Continue mechanical ventilator Continue propofol and as needed morphine Discontinue ceftriaxone azithromycin after today Repeat sputum culture If the blood pressure is stable attempt to give one more dose of Lasix Keep potassium more than 4 Check magnesium daily and replace it to magnesium of 2 g Strick sugar control We will watch for any fever Repeat chest x-ray in the morning Continue proton pump inhibitor Continue heparin subcutaneous Change her IV fluids to D5 half-normal saline at 50 mL per hour We will try to do pressure-support ventilation trials tomorrow Discussed with patient's family, Pt is critically ill
[2016-12-20 16:00] VITALS: BP 96/52
--- NOTE | 2016-12-20 21:23 | NUR ---
PT SEDATED ON PROPOFOL GTT AT 40MCG/KG/MIN-SEE FLOW SHEET FOR SAS SCORES-3 AT PRESENT. SOFT BILATERAL WRIST RESTRAINTS IN PLACE. ORALLY INTUBATED AND VENTED. COARSE BREATH SOUNDS THOUGHOUT BILATERALLY, SUCTIONING FOR MOD PINK SECREATIONS. SEE FLOW SHEET FOR VS, 02 SATS, I/O'S. MONITOR SHOWS NSR, NO ECTOPY NOTED AT PRESENT. SBP-90'S AT PRESENT. DOBUTAMINE GTT AT 5MCG/KG/MIN. ABD SOFT, NONTENDER, NONDISTENDED, POSITIVE BOWEL SOUNDS. OGT IN PLACE-TO LWS-MINIMAL DRAINAGE OF CLEAR SECREATIONS, PLACEMENT CONFIRMED BY AIR. GAR IN PLACE-ADEQUATE AMT OF CLEAR YELLOW URINE AT PRESENT. SKIN INTACT
[2016-12-20 23:00] VITALS: BP 98/56
[2016-12-21 05:13] LABS: ABSOLUTE BASOPHIL COUNT 0 /CUMM (0.0-0.2); ABSOLUTE EOSINOPHIL COUNT 0.2 /CUMM (0.0-0.7); ABSOLUTE GRANULOCYTE CT 5.5 /CUMM (1.4-6.5); ABSOLUTE LYMPH COUNT 1.1 /CUMM (1.2-3.4); ABSOLUTE MONOCYTE COUNT 0.8 /CUMM (0.10-0.60); BASOPHIL % 0.5 % (0.0-2.0); GRANULOCYTE % 71.9 % (42.2-75.2); HEMATOCRIT 31.6 % (37-47); MEAN CORPUSCULAR HGB 29.9 PG (27.0-31.0); MEAN CORPUSCULAR HGB CONC 33.9 G/DL (33.0-37.0); MEAN CORPUSCULAR VOLUME 88.2 FL (81.0-99.0); MEAN PLATELET VOLUME 9.6 FL (7.4-10.4); PLATELET COUNT 147 /CUMM (130-400); RBC DISTRIBUTION WIDTH 13.9 % (11.5-14.5); RED BLOOD CELL CT 3.59 /CUMM (4.20-5.40); WHITE BLOOD CELL COUNT 7.7 /CUMM (4.8-10.8)
--- NOTE | 2016-12-21 07:01 | PN- Resident CRCU ---
See Addendum Subjective HPI/CRCU Issues: Patient seen and examined at bedside this AM. She remains sedated and intubated and therefore ROS unable to be obtained. No issues overnight as per RN. 24 Hour Events: Review of proj engineer showed no significant overnight events, PAC noted. Chronic BBB also noted. Vital signs last 24 hours: T 96.9-98.3, HR 92-103, RR 18-25, BP 85-112/53-63, O2 94-97% on AC ventilation ( settings include RR 18, TV 550, FiO2 30%, 5 PEEP). Objective Vital Signs & I&O Last 8 Hrs of Vitals and I&O: T 96.9-98.3, HR 92-103, RR 18-25, BP 85-112/53-63, O2 94-97% on AC ventilation ( settings include RR 18, TV 550, FiO2 30%, 5 PEEP) Exam General Appearance: no apparent distress, comfortable, sedated, intubated Head: atraumatic, normal appearance Ears, Nose, Throat: normal pharynx Neck: normal inspection, No JVD Respiratory: Few rhonchi bilaterally Cardiovascular: regular rate/rhythm Gastrointestinal: normal bowel sounds, soft, non-tender Extremities: normal inspection, no edema Skin: normal color, warm/dry Nutrition Nutrition: NPO Current Medications: Current Medications Sig/Louisa Start time Last Medication Dose Route Stop Time Status Admin Acetaminophen 650 MG Q6P PRN 12/19 0115 AC PO Acetaminophen 1,000 MG Q6P PRN 12/19 0115 AC 12/19 IV 0228 Aspirin 81 MG DAILY 12/19 1000 AC 12/21 PO 0955 Azithromycin 500 MG ONCE ONE 12/20 1415 DC 12/20 Sodium Chloride 250 ML IV 12/20 1514 2218 Azithromycin 500 MG Q24H 12/19 2300 DC 12/19 Sodium Chloride 250 ML IV 12/21 0000 2203 Ceftriaxone Sodium 1,000 MG Q24H 12/20 0330 DC 12/20 IV 12/21 0000 0313 Dextrose/Sodium 1,000 ML Q20H 12/20 1415 AC 12/21 Chloride IV 0656 Dobutamine HCl 250 MG Q24H 12/21 1045 AC 12/21 Dextrose/Water 250 ML IV 1043 Dobutamine HCl 250 MG Q24H 12/19 0615 DC 12/21 Dextrose/Water 250 ML IV 0226 Furosemide 40 MG ONCE ONE 12/21 1045 DC 12/21 IV 12/21 1046 1059 Heparin Sodium 5,000 UNIT Q8 12/19 0115 12/21 (Porcine) SC 0612 Insulin Human Regular 0 Q6 12/19 1203 AC SC Lorazepam 0.5 MG Q2 HRS NEEDED PRN 12/21 1045 AC IV Magnesium Sulfate 1 GM ONCE ONE 12/21 0715 DC 12/21 Dextrose/Water 100 ML IV 12/21 1114 0954 Midazolam HCl 1 MG ONCE ONE 12/21 0945 DC 12/21 IV 12/21 0946 0941 Morphine Sulfate 2 MG Q4P PRN 12/19 0115 AC 12/21 IV 0610 Pantoprazole Sodium 40 MG DAILY 12/20 1000 AC 12/21 IV 0955 Patient Medication 1 UNIT ONE NR 12/20 1430 [place] Teaching [facility] 12/20 2030 Propofol 1,000 MG Q12H 12/19 1245 12/21 N/A 100 ML IV 1131 Sodium Chloride 1,000 ML Q10H 12/19 1100 DC 12/20 IV 0314 CXR Findings: IMPRESSION: Lines and tubes in place as stated above. Persistent retrocardiac airspace disease. ECHO Findings: CONCLUSIONS Moderate reduction in left ventricular systolic function with mild concentric hypertrophy. Severe Aortic stenosis.Mild left atrial enlargement.Moderate Motral regurgitations and probably mild mitral stenosis. Impression/Plan Impression/Problem List Impression: Ms. Tapia is a 76 year old female with PMH HFrEF 2/2 non-ischemic cardiomyopathy (EF 40-45% 6 months ago on echocardiogram), severe aortic stenosis with peak gradient 91 mm Hg, HTN, non-insulin dependent type 2 diabetes mellitus and CKD who presented to [facility] on 12/18/16 with chief complaint of shortness of breath, fatigue and decrease appetite for five days. She was initially admitted to the telemetry floor for shortness of breath secondary to acute decompensated heart failure and fever of unknown etiology. She was transferred to the ICU the following day due to hemodynamic instability. Vital signs on admission: T 99.9, HR 92, RR 16, BP 86-56/ and O2 saturation of 96% on room air. Labs were significant for: CBC unremarkable, Na 139, K 5.5, BUN 88, Cre 2.7, proBNP 2460. CXR was significant for cardiomegaly and left-sided retrocardiac opacity. EKG showed NSR HR 93, old LBBB, QTC 488. Patient is currently in the ICU and the following is the management: 1. Hypotension, likely cardiogenic shock: * Patient did have Tmax 101.3 on admission, though no leukocytosis or clear source of infection * Follow BC x2, LRC, UCx; rapid flu negative * IV ceftriaxone and IV azithromycin discontinued * Continue dobutamine drip for hemodynamic instability along with D51/2NS at 50 cc/h * BP currently stable, follow vital signs closely * Cardio following, suggests follow up echocardiogram tomorrow * Continuous telemetry monitoring, close vital sign monitoring * Hold [id number] lisinopril and carvedilol in the setting of hypotension * Head CT for today, f/u results 2. Acute hypoxic respiratory failure secondary to decompensated CHF vs community acquired PNA * Echo about 6 months ago showed severe aortic stenosis and LVEF of 40-45%. Chest x-ray showed evidence of volume overload and cardiomegaly. 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 * Due to uncompensated metabolic acidosis, patient was intubated; continue mechanical ventilation for now, attempt PSV later today after titrating down sedation and if patient tolerates well will plan for extubation * Ativan 0.5 Q2h PRN while titrating down propofol * IV protonix while vented * Repeat echo on admission showed EF 35-40%, severe (consider TAVR); order echo for tomorrow to assess LV function and reevaluate pericardial effusion * Repeat lasix 40 mg IV once today * F/U repeat CXR in AM 3. Elevated troponins * Likely represent demand ischemia in the setting of hypotension * Troponins peaked at 1.47 * Follow up cardiology recommendations * Echo showed EF 35-40%, severe * Continue ASA 81 mg PO daily 4. Aortic stenosis, severe * Cardio consult appreciated * Patient will likely require TAVR once stable 5. WEN on CKD * Creatinine 2.7 on initial presentation, increased from baseline of 1.4. Likely secondary to hypoperfusion in the setting of decompensated CHF. * Hold [id number] lisinopril. * Continue IVF for now * Trend BUN/cre daily 6. Hyperkalemia: * K 5.5 on admission, likely 2/2 renal insufficiency * Trend ICU bundle daily 7. Non-insulin dependant DM * Hold oral hypoglycemic glipizide ER 2.5 mg PO BID while inpatient * Accuchecks Q6 * Continue regular insulin Q6 while patient NPO FULL CODE DVTP: Heparin SC Diet: NPO Mild to severe pain pathway Problem List: 1. Cardiogenic shock 2. Acute hypoxemic respiratory failure 3. Hyperkalemia 4. Non-insulin dependent type 2 diabetes mellitus 5. Acute on chronic kidney failure 6. CHF (congestive heart failure) Pain Ratin Tomorrow's Labs & Rationales: CBC (Critically ill, monitor for leukocytosis) ICU bundle (monitor renal function, K) Plan DVT/Prophylaxis: pharmacological (Heparin SC)
--- NOTE | 2016-12-21 07:04 | RADIOLOGY REPORT ---
EXAMINATION: CHEST 1 VIEW CLINICAL INFORMATION: Hypoxia. Respiratory failure. COMPARISON: Multiple prior exams are reviewed. The most recent is from 12/20/2016. TECHNIQUE: An AP view of the chest is provided. FINDINGS: The cardiac silhouette is stable. The tip of the endotracheal tube is approximately 2.5 cm above the daisha. An enteric tube is in unchanged position. The mediastinal and hilar contours are unremarkable. There are neither pleural effusions nor pneumothoraces. There is persistent retrocardiac airspace disease. The osseous structures are unremarkable. IMPRESSION: Lines and tubes in place as stated above. Persistent retrocardiac airspace disease.
--- NOTE | 2016-12-21 07:38 | NUR ---
PT REMAINS ON PROPOFOL GTT AT 40MCG/KG/MIN, SAS SCORE MOSTLY 3 FOR SHIFT. MORPHINE 2MG IV GIVEN WITH GOOD EFFECT-SEE EMAR. REMAINS ORALLY INTUBATED AND VENTED, COARSE BREATH SOUNDS THOUGHOUT, SUCTIONING FOR MOD AMT OF BLOOD TINGED SECREATIONS. 02 SATS 95-97% FOR SHIFT. COPIOUS CLEAR ORAL SECREATIONS. MONITOR NSR, 90'S FOR SHIFT, SBP-90-100'S FOR SHIFT. GOOD URINE OUTPUT FOR SHIFT. SKIN INTACT. DOBUTAMINE GTT REMAINS AT 5MCG/KG/MIN
[2016-12-21 08:00] VITALS: BP 113/64
--- NOTE | 2016-12-21 09:53 | PN- Cardiology ---
Subjective Subjective: Patient remains intubated and sedated. She remains on renal dopamine Review of Systems: Unobtainable patient intubated and sedated Objective Vital Signs and I&Os Vital Signs Date Time Temp Pulse Resp B/P B/P Pulse O2 O2 Flow FiO2 Mean Ox Delivery Rate 12/21 0841 30 12/21 0607 30 12/21 0400 96 Ventilator 30% 12/21 0249 30 / 0226 95 18 103/64 05/ 0017 30 / 0000 96 Ventilator 30% 12/20 2300 96.9 96 18 98/56 96 Ventilator 30% / 2000 30 12/20 2000 97 Ventilator 30% / 1700 93 96/52 / 1625 30 12/20 1600 97.9 100 24 96/52 96 Ventilator 30% 12/20 1600 96 Ventilator 30% / 1450 30 12/20 1229 30 12/20 1200 96 Ventilator 30% Intake & Output 12/21 1600 /16 0800 /16 0000 12/20 1600 12/20 0800 12/20 0000 Intake Total 786 1214 1314 1423 1199 Output Total 7750 530 3438 1200 1500 Balance -454 234 -1561 223 -301 Intake, IV 786 1214 1214 1423 1199 Intake, Other 100 Number 1 0 0 1 Bowel Movements Output, 100 50 25 Gastric Drainage Output, Urine 5794 370 8553 1200 1500 Patient 232 lb 233 lb Weight Weight Bed scale Bed scale Measurement Method Physical Exam: Patient is a well-developed well-nourished female intubated HEENT is unremarkable Neck is supple there is no JVD Lungs few rhonchi bilaterally Heart regular rhythm S1 and S2 are normal no gallops or rubs Abdomen bowel sounds positive Extremities without edema Current Medications: Current Medications Sig/Louisa Start time Last Medication Dose Route Stop Time Status Admin Acetaminophen 650 MG Q6P PRN 12/19 0115 AC PO Acetaminophen 1,000 MG Q6P PRN 12/19 0115 AC 12/19 IV 0228 Aspirin 81 MG DAILY 12/19 1000 AC 12/20 PO 0830 Azithromycin 500 MG ONCE ONE 12/20 1415 DC 12/20 Sodium Chloride 250 ML IV 12/20 1514 2218 Azithromycin 500 MG Q24H 12/19 2300 DC 12/19 Sodium Chloride 250 ML IV 12/21 0000 2203 Ceftriaxone Sodium 1,000 MG Q24H 12/20 0330 DC 05 IV 12/21 0000 0313 Dextrose/Sodium 1,000 ML Q20H 12/20 1415 AC 12/21 Chloride IV 0656 Dobutamine HCl 250 MG Q24H 12/19 0615 AC 12/21 Dextrose/Water 250 ML IV 0226 Furosemide 40 MG ONCE ONE 12/20 1000 DC 05/ IV 12/20 1001 0953 Heparin Sodium 5,000 UNIT Q8 12/19 0115 AC 12/21 (Porcine) SC 0612 Insulin Human Regular 0 Q6 12/19 1203 SC Magnesium Sulfate 1 GM ONCE ONE 12/21 0715 AC Dextrose/Water 100 ML IV 12/21 1114 Magnesium Sulfate 1 GM ONCE ONE 12/20 0615 DC 12/20 Dextrose/Water 100 ML IV 12/20 1014 0829 Magnesium Sulfate 1 GM ONCE ONE 12/20 0615 DC 12/20 Dextrose/Water 100 ML IV 12/20 1014 0613 Midazolam HCl 1 MG ONCE ONE 12/21 0945 UNVr 12/21 IV 12/21 0946 0941 Morphine Sulfate 2 MG Q4P PRN 12/19 0115 12/21 IV 0610 Pantoprazole Sodium 40 MG DAILY 12/20 1000 12/20 IV 0830 Patient Medication 1 UNIT ONE NR 12/20 1430 VT Teaching ED 12/20 2030 Propofol 1,000 MG Q12H 12/19 1245 12/21 N/A 100 ML IV 0120 Sodium Chloride 1,000 ML Q10H 12/19 1100 DC 12/20 IV 0314 Results Last 48 Hrs of Labs/Mics: Laboratory Tests 12/21/16 0550: pH 7.38, pCO2 25 L, pO2 107 H, HCO3 14 L, ABG O2 Sat (Measured) 97.0, P-50 ( Temp Corrected) N, Carboxyhemoglobin 0.3 L, O2 Concentration % .30, Respiration Rate 18, O2 Delivery Method VENT, Vent Mode A/C, Expiratory Pressure 5, Tidal Volume 550, Phlebotomy Draw Site RIGHT RADIAL 12/21/16 0445: Anion Gap 13, Estimated GFR 26 L, Glucose 178 H, Calcium 8.7, Phosphorus 5.1 H, Magnesium 1.8, Total Bilirubin 0.5, AST 13 L, ALT 29, Albumin 3.3 L, CBC w Diff NO MAN DIFF REQ, RBC 3.59 L, MCV 88.2, MCH 29.9, RDW 13.9, MPV 9.6, Gran % 71.9, Lymphocytes % 14.0 L, Monocytes % 10.6 H, Eosinophils % 3.0, Basophils % 0.5, Absolute Granulocytes 5.5, Absolute Lymphocytes 1.1 L, Absolute Monocytes 0.8 H, Absolute Eosinophils 0.2, Absolute Basophils 0, PUBS MCHC 33.9 12/20/16 190: Anion Gap 11, Estimated GFR 26 L, Glucose 179 H, Calcium 8.3 L, Phosphorus 4.7 H, Magnesium 1.9, Total Bilirubin 0.6, AST 20, ALT 23, Albumin 2.8 L 12/20/16 0505: pH 7.42, pCO2 20 L, pO2 93, HCO3 13 L, ABG O2 Sat (Measured) 96.0, P-50 (Temp Corrected) Y, Carboxyhemoglobin 0.3 L, O2 Concentration % 30%, Temperature 99.2 , Respiration Rate 24, O2 Delivery Method ESPRIT, Vent Mode AC, Expiratory Pressure 5, Tidal Volume 600, Phlebotomy Draw Site RIGHT RADIAL 12/20/16 0420: Anion Gap 14, Estimated GFR 22 L, Glucose 134 H, Calcium 8.3 L, Phosphorus 3.6, Magnesium 1.5 L, Total Bilirubin 0.4, AST 16, ALT 27, Troponin I 1.01 *H, Albumin 2.8 L, CBC w Diff NO MAN DIFF REQ, RBC 3.46 L, MCV 88.3, MCH 30.5, RDW 13.8, MPV 9.5, Gran % 75.7 H, Lymphocytes % 12.4 L, Monocytes % 9.8 H, Eosinophils % 1.6, Basophils % 0.5, Absolute Granulocytes 5.6, Absolute Lymphocytes 0.9 L, Absolute Monocytes 0.7 H, Absolute Eosinophils 0.1, Absolute Basophils 0, PUBS MCHC 34.5 12/19/16 1900: Troponin I 1.47 *H 12/19/16 1405: Anion Gap 15, Estimated GFR 16 L, Glucose 89, Calcium 8.4, Phosphorus 5.0 H, Magnesium 1.7, Total Bilirubin 0.4, AST 17, ALT 22, Albumin 3.2 L, CBC w Diff NO MAN DIFF REQ, RBC 3.37 L, MCV 88.5, MCH 30.0, RDW 13.8, MPV 10.1, Gran % 74.2, Lymphocytes % 13.2 L, Monocytes % 9.5 H, Eosinophils % 2.7, Basophils % 0.4, Absolute Granulocytes 4.6, Absolute Lymphocytes 0.8 L, Absolute Monocytes 0.6, Absolute Eosinophils 0.2, Absolute Basophils 0, PUBS MCHC 33.9 12/19/16 1220: pH 7.37, pCO2 19 L, pO2 208 H, HCO3 11 L, ABG O2 Sat (Measured) 98.0, P-50 ( Temp Corrected) N, Carboxyhemoglobin 0.6 L, O2 Concentration % 50, Temperature 97.0, Respiration Rate 24, O2 Delivery Method VENT, Vent Mode VC-AC, Expiratory Pressure 5, Tidal Volume 600, Phlebotomy Draw Site RIGHT RADIAL 12/19/16 1050: pH 7.18 *L, pCO2 41, pO2 95, HCO3 15 L, ABG O2 Sat (Measured) 96.0, P-50 (Temp Corrected) N, Carboxyhemoglobin 0.7 L, O2 Concentration % 30, Respiration Rate 30, O2 Delivery Method BIPAP, Vent Mode ST, Expiratory Pressure 6, Inspiratory Pressure 12, Phlebotomy Draw Site RIGHT RADIAL 12/19/16 1000: Sodium Cancelled, Potassium Cancelled, Chloride Cancelled, Carbon Dioxide Cancelled, Anion Gap Cancelled, BUN Cancelled, Creatinine Cancelled, Glucose Cancelled, Calcium Cancelled, Phosphorus Cancelled, Magnesium Cancelled, Total Bilirubin Cancelled, AST Cancelled, ALT Cancelled, Albumin Cancelled Telemetry personally reviewed sinus rhythm PVCs Assessment/Plan Assessment/Plan The patient is a 76-year-old woman with known aortic stenosis who presents with acute on chronic congestive heart failure, acute on chronic renal insufficiency, fevers with possible pneumonia and hypotension. Her initial CODE STATUS was listed as DNR DNI; however, currently she remains intubated. Hypotension, congestive heart failure: Likely due to underlying aortic stenosis, with possible exacerbation by pneumonia/sepsis. She has diuresed well yesterday with Lasix. Given the severity of her aortic stenosis, this will need to be addressed through either a procedure such as a TAVR, versus changing her status to comfort/palliative. Regardless, intervention of her aortic valve will need to be deferred until all acute infectious issues have resolved. Pneumonia/sepsis: The patient presented with an elevated temperature of 101.3 and has remained afebrile over the past 24 hours. Antibiotics have been discontinued. Aortic stenosis: The patient has severe aortic stenosis which will need to be addressed both in regards to her previous CODE STATUS/care goals as well as following resolution of any possible infectious etiology. Acute kidney injury: Possibly secondary to a prerenal state due to her aortic stenosis. We will continue with IV dobutamine for now; however, diuresis with IV Lasix will need to be attempted. Her renal function has improved. Respiratory failure currently intubated: Ventilator management per Dr. Poe. She is improving so weaning attempts may be possible. I discussed the case at length with the patient's family, answered all their questions, and outlined the plan of care at this point. Continue telemetry? Yes
--- NOTE | 2016-12-21 11:00 | NUR ---
Patient is sedated on a propofol gtt infusing at 45mcg, SAS ranging from 3-5. She can move all extremities and is restless in bed, but does not follow commands, 1mg IV Versed given per Dr. Poe's order. Soft bilateral wrist restraints in place. Pupils are 2mm and sluggish. NSR-ST on tele monitor, HR= 90-100's. SBp: 90-110's and Dr. Joyce is to discuss plan of care with family- Remains intubated with a #8 to the left at 22cm, Vent settings currently AC 18/550/30/5- O2 sats have been stable at 95-97%. Lung sounds are clear and diminished with scant crackles at the bilateral lower bases. Scant blood tinged sputum noted when suctioning thru the ETT. A bite block is in place and moderate amounts of clear thin secretions noted orally. OGT in place to low wall suction with scant brown output noted. [place] in place draining clear yellow urine- Patient received 40mg IV lasix per order. Skin appears intact with no areas of pressure injury noted- She remains on a specialty mattress- Trace edema. No s/s of pain are currently noted. Dobutamine continues to infuse at 5mcg. D5 1/2 NS @ 50- Plan is for CT head. Vitals currently stable and family has been updated frequently on plan of care. WIll continue to closely monitor patient.
--- NOTE | 2016-12-21 12:15 | CT SCAN REPORT ---
EXAMINATION: CT HEAD WITHOUT CONTRAST CLINICAL INFORMATION: Abnormal eye gaze. Evaluate for stroke. COMPARISON: No relevant prior imaging is available. TECHNIQUE: Contiguous axial imaging was performed from the skull base to vertex without intravenous administration of contrast. DLP: 624.52 mGy-cm FINDINGS: There is no acute intracranial hemorrhage or abnormal extra-axial collection. No intracranial mass effect or midline shift. Lateral and third ventricles are slightly prominent and there is proportionate prominence of the subarachnoid spaces reflecting a mild degree of global parenchymal volume loss. There are a few ill-defined foci of hypoattenuation within the periventricular white matter that most likely represent a chronic manifestation of small vessel ischemia. Cleaning-white matter differentiation is otherwise grossly preserved and there is no evidence of acute territorial infarct. The calvarium and skull base are intact. Mastoid air cells and middle ear cavities are well aerated. Visualized paranasal sinuses are well-aerated. Globes and orbits are symmetric. IMPRESSION: There is mild global parenchymal volume loss and nonspecific changes within the periventricular white matter that most likely represent a chronic manifestation of small vessel ischemia. No evidence of acute territorial infarct or hemorrhage.
--- NOTE | 2016-12-21 14:00 | NUR ---
Patient was transported to CT scan for a CT head at approx 1140, patient tolerated procedure well and vitals remained stable. At 1315, patient received 0.5mg IV ativan, SAS remains 4-5~ and propofol gtt to be titrated down when able-see flow sheet for details. Patient was also medicated with IV Tylenol and voltaren cream was ordered- Pts family stating that patient has chronic shoulder and arm pain and was seeing a pain management doctor for approx [address] Mayorga notified. Will continue to closely monitor patient.
[2016-12-21 16:00] VITALS: BP 113/60
--- NOTE | 2016-12-21 21:02 | NUR ---
@2030 MEDICATED PT WITH PRN ATIVAN 0.5MG IV FOR AGITATION, PT THRASHING HEAD SIDE TO SIDE, SQUIRMING IN BED, UNABLE TO CALM PT VERBALLY. DISCUSSED WITH MD ALLRED PLAN IS TO USE PRN ATIVAN INSTEAD OF TITRATING PROPOFOL UP. FAMILY WAS UPDATED ON POC OF NIGHT AND VERBALIZED UNDERSTANDING. WILL MONITOR.
[2016-12-22] VITALS: BP 118/74
--- NOTE | 2016-12-22 00:39 | NUR ---
@2330 SUCTIONED PT VIA ET TUBE FOR BRIGHT RED SECRETIONS, ORAL SECRETIONS WERE CLEAR, AFTER REPOSITIONING PT NOTICED SCANT PINK TINGE IN GAR. PT FELT HOT TO TOUCH, RECTAL TEMP CHECKED 101.2, PT RECEIVED TYLENOL IV AT 2030 FOR PAIN AND NOT DUE AT THIS TIME, ICE PACKS APPLIED TO AXILLARY NOTIFIED MD ALLRED WHO CAME TO BEDSIDE TO ASSESS, BLOOD CULTURES ORDERED AT THIS TIME FOR TEMP, NO OTHER ORDERS GIVEN. WILL MONITOR.
--- NOTE | 2016-12-22 00:43 | NUR ---
AFTER REPOSITIONING PT REMAINS RESTLESS AND SQUIRMING IN BED, MEDICATED WITH 2MG IOV MORPHINE FOR FLACC PAIN SCORE OF 7 WITH GOOD EFFECT. PT REMAINS ON PROPOFOL AT 25MCG SAS 3-4, FREQUENT REPOSITIONING.
--- NOTE | 2016-12-22 01:45 | NUR ---
RECTAL TEMP NOW 100, URINE BACK TO CLEAR YELLOW WITH ON SIGNS OF HEMATURIA. SECRETIONS VIA ET TUBE REMAIN BLOODY.
[2016-12-22 05:11] LABS: ABSOLUTE BASOPHIL COUNT 0 /CUMM (0.0-0.2); ABSOLUTE EOSINOPHIL COUNT 0.2 /CUMM (0.0-0.7); ABSOLUTE GRANULOCYTE CT 5.3 /CUMM (1.4-6.5); ABSOLUTE MONOCYTE COUNT 0.8 /CUMM (0.10-0.60); BASOPHIL % 0.5 % (0.0-2.0); EOSINOPHIL % 3.3 % (0-5); GRANULOCYTE % 72.3 % (42.2-75.2); HEMATOCRIT 29.9 % (37-47); MEAN CORPUSCULAR HGB 29.5 PG (27.0-31.0); MEAN CORPUSCULAR HGB CONC 33.8 G/DL (33.0-37.0); MEAN CORPUSCULAR VOLUME 87.2 FL (81.0-99.0); MEAN PLATELET VOLUME 10.3 FL (7.4-10.4); PLATELET COUNT 149 /CUMM (130-400); RBC DISTRIBUTION WIDTH 13.4 % (11.5-14.5); RED BLOOD CELL CT 3.43 /CUMM (4.20-5.40); WHITE BLOOD CELL COUNT 7.4 /CUMM (4.8-10.8)
--- NOTE | 2016-12-22 06:49 | PN- Resident CRCU ---
See Addendum Subjective HPI/CRCU Issues: Patient seen and examined at bedside this AM. She is resting comfortably on the vent though there is noted agitation. Propofol is being weaned off and low dose fentanyl drip being started. Family meeting was held with attending physician, resident physician and myself regarding goals of care and family updated on current status. Will meet again tomorrow with them to discuss continued ventilation. 24 Hour Events: Vital signs over the last 24 hours: T 97.0-Tmax 101.2 at midnight, HR 86-106, RR 18-22, BP 95-139/51-99. Total input last 24 hours: 2631 cc Total output: 4100 cc Objective Vital Signs & I&O Last 8 Hrs of Vitals and I&O: T 97.0-Tmax 101.2 at midnight, HR 86-106, RR 18-22, BP 95-139/51-99. Intake & Output 12/22 1600 Intake Total Output Total Balance Patient 220 lb Weight Exam General Appearance: well developed/nourished, no apparent distress, intubated, obese, Slightly agitated Head: atraumatic, normal appearance Ears, Nose, Throat: moist mucus membranes Neck: normal inspection, No JVD Respiratory: normal breath sounds, chest non-tender, no respiratory distress, quiet respiration Cardiovascular: regular rate/rhythm Gastrointestinal: normal bowel sounds, soft, non-tender Extremities: normal inspection, normal capillary refill, no edema Skin: intact, warm/dry Skin Temp/Moisture Exam: Warm/Dry Nutrition Nutrition: tube feeding Current Medications: Current Medications Sig/Louisa Start time Last Medication Dose Route Stop Time Status Admin Acetaminophen 1,000 MG .STK-MED ONE 12/21 2021 DC IV 12/21 2022 Acetaminophen 1,000 MG .STK-MED ONE 12/21 1304 DC IV 12/21 1305 Acetaminophen 650 MG Q6P PRN 12/19 0115 AC PO Acetaminophen 1,000 MG Q6P PRN 12/19 0115 12/21 IV 2022 Aspirin 81 MG DAILY 12/19 1000 AC 12/22 PO 0926 Ceftazidime 1,000 MG Q12 12/22 1102 AC IV Dextrose/Sodium 1,000 ML Q20H 12/20 1415 DC 12/22 Chloride IV 0517 Diclofenac Sodium 1 RISHI DAILY PRN 12/21 1315 12/21 TOP 1543 Dobutamine HCl 250 MG Q24H 12/21 1045 DC 12/22 Dextrose/Water 250 ML IV 0546 Fentanyl Citrate 1,000 MCG Q24H 12/22 1045 AC Dextrose/Water 250 ML IV Furosemide 40 MG ONCE ONE 12/22 0830 DC 12/22 IV 12/22 0831 0939 Heparin Sodium 5,000 UNIT Q8 12/19 0115 12/22 (Porcine) SC 0629 Insulin Human Regular 0 Q6 12/19 1203 AC SC Lorazepam 1 MG ONCE ONE 12/22 1200 UNVr IV 12/22 1201 Lorazepam 1 MG ONCE ONE 12/22 1045 DC 12/22 IV 12/22 1046 1015 Lorazepam 0.5 MG Q2 HRS NEEDED PRN 12/21 1045 12/22 IV 0938 Magnesium Sulfate 1 GM ONCE ONE 12/22 0600 DC 12/22 Dextrose/Water 100 ML IV 12/22 0959 1102 Magnesium Sulfate 1 GM ONCE ONE 12/22 0600 DC 12/22 Dextrose/Water 100 ML IV 12/22 0959 0925 Morphine Sulfate 2 MG Q4P PRN 12/19 0115 12/22 IV 0621 Pantoprazole Sodium 40 MG DAILY 12/20 1000 AC 12/22 IV 0926 Potassium Chloride 40 MEQ Q20H 12/22 0630 AC 12/22 Dextrose/Sodium 1,000 ML IV 0816 Chloride Potassium Chloride 10 MEQ ONCE ONE 12/22 0615 DC 12/22 IV 12/22 0616 0620 Potassium Chloride 10 MEQ ONCE ONE 12/22 0615 DC 12/22 IV 12/22 0616 0814 Potassium Chloride 20 MEQ ONCE ONE 12/22 0600 CAN IV 12/22 0601 Potassium Chloride 20 MEQ ONCE ONE 12/22 0600 CAN IV 12/22 0601 Propofol 1,000 MG Q12H 12/19 1245 DC 12/22 N/A 100 ML IV 0749 Vancomycin HCl 1,250 MG DAILY 12/22 1033 AC Sodium Chloride 250 ML IV CXR Findings: IMPRESSION: Endotracheal tube and enteric tube in place. Persistent retrocardiac opacity. CT Scan Findings: Head CT: IMPRESSION: There is mild global parenchymal volume loss and nonspecific changes within the periventricular white matter that most likely represent a chronic manifestation of small vessel ischemia. No evidence of acute territorial infarct or hemorrhage. ECHO Findings: CONCLUSIONS Moderate reduction in left ventricular systolic function with mild concentric hypertrophy. Severe Aortic stenosis.Mild left atrial enlargement.Moderate Motral regurgitations and probably mild mitral stenosis. Impression/Plan Impression/Problem List Impression: Ms. Tapia is a 76 year old female with PMH HFrEF 2/2 non-ischemic cardiomyopathy (EF 40-45% 6 months ago on echocardiogram), severe aortic stenosis with peak gradient 91 mm Hg, HTN, non-insulin dependent type 2 diabetes mellitus and CKD who presented to [facility] on 12/18/16 with chief complaint of shortness of breath, fatigue and decrease appetite for five days. She was initially admitted to the telemetry floor for shortness of breath secondary to acute decompensated heart failure and fever of unknown etiology. She was transferred to the ICU the following day due to hemodynamic instability. Vital signs on admission: T 99.9, HR 92, RR 16, BP 86-56/ and O2 saturation of 96% on room air. Labs were significant for: CBC unremarkable, Na 139, K 5.5, BUN 88, Cre 2.7, proBNP 2460. CXR was significant for cardiomegaly and left-sided retrocardiac opacity. EKG showed NSR HR 93, old LBBB, QTC 488. Patient is currently in the ICU and the following is the management: 1. Hypotension, cardiogenic shock with possible component of septic shock: * Concern for septic shock on admission due to Tmax 101.3, though no leukocytosis or clear source of infection and patient was started on IV antibiotics which have since been discontinued * Hypotension likely 2/2 cardiogenic shock and patient was previously on dobutamine drip which has since been discontinued as patient perfusing well and BP now stable * IVF with D51/2NS at 50 cc/h * Follow vital signs closely, continuous tele monitoring * However, sepsis remains in differential as patient spiked a fever again last night to 101.2, will panculture again today * Patient started on ceftazidime, vancomycin today (concern for ?gram negative PNA/HCAP) * Cardio following, suggests follow up echocardiogram today, awaiting results * Hold [id number] lisinopril and carvedilol in the setting of hypotension * Head CT yesterday negative for infarct 2. Acute hypoxic respiratory failure secondary to decompensated CHF vs community acquired PNA * Echo about 6 months ago showed severe aortic stenosis and LVEF of 40-45%. Chest x-ray showed evidence of volume overload and cardiomegaly. 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 * Due to uncompensated metabolic acidosis, patient was intubated; continue mechanical ventilation for now, will consider attempting PSV tomorrow after titrating down sedation; family discussion held today and they suggest they do not want Glenys on the ventilator for extended period of time, will reevaluate tomorrow * While patient intubated, will start jevity tube feeds * Ativan 0.5 Q2h PRN * Add fentanyl drip as we are titrating off propofol * IV protonix while vented * Repeat echo ordered for today to assess LV function and reevaluate pericardial effusion * Repeat lasix 40 mg IV once today * F/U repeat CXR in AM 3. Elevated troponins * Likely represent demand ischemia in the setting of hypotension * Troponins peaked at 1.47 * Follow up cardiology recommendations * Echo showed EF 35-40%, severe * Continue ASA 81 mg PO daily 4. Aortic stenosis, severe * Cardio consult appreciated * Patient will likely require TAVR once stable 5. WEN on CKD * IMPROVED * Creatinine 2.7 on initial presentation, increased from baseline of 1.4. Likely secondary to hypoperfusion in the setting of decompensated CHF. * Hold [id number] lisinopril. * Continue IVF for now * Trend BUN/cre daily 6. Hyperkalemia: * K 5.5 on admission, likely 2/2 renal insufficiency * Trend ICU bundle daily and replete as needed 7. Non-insulin dependant DM * Hold oral hypoglycemic glipizide ER 2.5 mg PO BID while inpatient * Accuchecks Q6 * Continue regular insulin Q6 FULL CODE DVTP: Heparin SC Diet: Tube feeds Mild to severe pain pathway Problem List: 1. Acute kidney injury 2. CHF (congestive heart failure) 3. Acute on chronic kidney failure 4. Non-insulin dependent type 2 diabetes mellitus 5. Hyperkalemia 6. Acute hypoxemic respiratory failure 7. Cardiogenic shock 8. Aortic stenosis Pain Ratin Tomorrow's Labs & Rationales: CBC (anemia) ICU bundle (hypokalemia, renal dysfunction, hypomagnesemia) Plan DVT/Prophylaxis: pharmacological (Heparin SC)
--- NOTE | 2016-12-22 07:03 | RADIOLOGY REPORT ---
EXAMINATION: CHEST 1 VIEW CLINICAL INFORMATION: Hypoxia. Respiratory failure. COMPARISON: Multiple prior exams are reviewed. The most recent is from 12/21/2016. TECHNIQUE: An AP view of the chest is provided. FINDINGS: The cardiac silhouette is enlarged, but stable. The endotracheal tube and enteric tube are in unchanged position. There is a persistent retrocardiac opacity. There is mild interstitial prominence again noted throughout both lungs. The osseous structures are stable. IMPRESSION: Endotracheal tube and enteric tube in place. Persistent retrocardiac opacity.
--- NOTE | 2016-12-22 07:23 | NUR ---
ATTEMPTED TO TITRATE PROPOFOL DRIP DOWN TO 20MCG/KG/MIN, PT BECAME TACHYCARDIC IN 118'S, THRASHING IN BED, PLACING LEGS OVER RAILING, SQUIRMING ALL OVER, UNABLE TO CALM PT VERBALLY. MEDICATED WITH ATIVAN 0.5MG PER EMAR AND TITRATED PROPOFOL DRIP BACK TO 25MCG/KG/MIN.
[2016-12-22 08:00] VITALS: BP 122/64
--- NOTE | 2016-12-22 10:36 | PN- Cardiology ---
Subjective Subjective: The patient remains intubated and sedated The events of the last 24 hours as well as telemetry were reviewed. Review of Systems: A full review of systems is unobtainable given the patient's sedation and intubation status Objective Vital Signs and I&Os Vital Signs Date Time Temp Pulse Resp B/P B/P Pulse O2 O2 Flow FiO2 Mean Ox Delivery Rate 12/22 0832 30 12/22 0800 97.8 103 20 122/64 95 Ventilator 30% 12/22 0800 96 Ventilator 30% 12/22 0546 100.5 94 18 128/71 12/22 0541 30 12/22 0400 97 Ventilator 30% 12/22 0350 30 12/22 0051 30 12/22 0000 96 Ventilator 30% 12/22 0000 101.2 96 18 118/74 95 Ventilator 30% 12/21 2237 30 12/21 2030 97.8 106 19 116/68 12/21 2000 96 Ventilator 30% / 1927 30 12/21 1639 30 12/21 1600 96 Ventilator 30% 12/21 1600 97.3 102 18 113/60 96 Ventilator 30% 12/21 1345 30 12/21 1200 96 Ventilator 30% / 1119 30 12/21 1043 98 107/55 Intake & Output 12/22 1600 12/22 0800 12/22 0000 12/21 1600 12/21 0800 12/21 0000 Intake Total 776.8 918.5 631 075 3141 Output Total 429 119 3112 1240 980 Balance -213.2 -31.5 -1225 -454 234 Intake, IV 776.8 918.5 468 225 9852 Intake, Oral 0 0 Number 2 1 1 0 Bowel Movements Output, 240 10 100 50 Gastric Drainage Output, Urine 596 451 8779 1140 930 Patient 220 lb 232 lb Weight Weight Bed scale Bed scale Measurement Method Physical Exam: General: Nontoxic, no apparent distress. HEENT: Sclera and conjunctiva within normal limits, without xanthelasmas. Neck: Carotids 2+ without bruits. Respiratory: vented breath sounds, air movement is good, without accessory respiratory muscle use. Heart: Regular rate and rhythm, 2/6 systolic ejection left sternal border, without JVD. Abdomen: Soft, nontender, no masses, normoactive bowel sounds. Extremities: Without clubbing, cyanosis. Neuro: Grossly Nonfocal exam, strength, 5 out of 5 Skin: Within normal limits without lesions. Psych: Mood and affect: Unable to assess Current Medications: Current Medications Sig/Louisa Start time Last Medication Dose Route Stop Time Status Admin Acetaminophen 1,000 MG .STK-MED ONE 12/21 2021 DC IV 12/21 2022 Acetaminophen 1,000 MG .STK-MED ONE 12/21 1304 DC IV 12/21 1305 Acetaminophen 650 MG Q6P PRN 12/19 011 AC PO Acetaminophen 1,000 MG Q6P PRN 12/19 0115 AC 12/21 IV 202 Aspirin 81 MG DAILY 12/19 1000 12/22 PO 0926 Ceftazidime 1,000 MG IQ8 12/22 1600 UNVr IV Dextrose/Sodium 1,000 ML Q20H 12/20 1415 IA 12/22 Chloride IV 0517 Diclofenac Sodium 1 RISHI DAILY PRN 12/21 1315 12/21 TOP 1543 Dobutamine HCl 250 MG Q24H 12/21 1045 12/22 Dextrose/Water 250 ML IV 0546 Dobutamine HCl 250 MG Q24H 12/19 0615 IA 12/21 Dextrose/Water 250 ML IV 0226 Fentanyl Citrate 1,000 MCG Q24H 12/22 1045 UNVr Dextrose/Water 250 ML IV Furosemide 40 MG ONCE ONE 12/22 0830 IA 12/22 IV 12/22 0831 0939 Furosemide 40 MG ONCE ONE 12/21 1045 DC 12/21 IV 12/21 1046 1059 Heparin Sodium 5,000 UNIT Q8 12/19 0115 12/22 (Porcine) SC 0629 Insulin Human Regular 0 Q6 12/19 1203 SC Lorazepam 1 MG ONCE ONE 12/22 1045 UNVr IV 12/22 1046 Lorazepam 0.5 MG Q2 HRS NEEDED PRN 12/21 1045 12/22 IV 0938 Magnesium Sulfate 1 GM ONCE ONE 12/22 06 DC Dextrose/Water 100 ML IV 12/22 0959 Magnesium Sulfate 1 GM ONCE ONE 12/22 0600 DC 12/22 Dextrose/Water 100 ML IV 12/22 0959 0925 Magnesium Sulfate 1 GM ONCE ONE 12/21 0715 IA 12/21 Dextrose/Water 100 ML IV 12/21 1114 0954 Morphine Sulfate 2 MG Q4P PRN 12/19 0115 12/22 IV 0621 Pantoprazole Sodium 40 MG DAILY 12/20 1000 AC 12/22 IV 0926 Potassium Chloride 40 MEQ Q20H 12/22 0630 AC 12/22 Dextrose/Sodium 1,000 ML IV 0816 Chloride Potassium Chloride 10 MEQ ONCE ONE 12/22 0515 DC 12/22 IV 12/22 0616 0620 Potassium Chloride 10 MEQ ONCE ONE 12/22 0515 DC 12/22 IV 12/22 0616 0814 Potassium Chloride 20 MEQ ONCE ONE 12/22 0600 CAN IV 12/22 0601 Potassium Chloride 20 MEQ ONCE ONE 12/22 0600 CAN IV 12/22 0601 Propofol 1,000 MG Q12H 12/19 1245 AC 12/22 N/A 100 ML IV 0749 Vancomycin HCl 1,000 MG DAILY 12/22 1033 UNir Sodium Chloride 250 ML IV Results Last 48 Hrs of Labs/Mics: Laboratory Tests 12/22/16 0413: Anion Gap 11, Estimated GFR 36 L, Glucose 140 H, Calcium 8.0 L, Phosphorus 4.2, Magnesium 1.5 L, Total Bilirubin 0.6, AST 15, ALT 30, Albumin 2.9 L, CBC w Diff NO MAN DIFF REQ, RBC 3.43 L, MCV 87.2, MCH 29.5, RDW 13.4, MPV 10.3, Gran % 72.3, Lymphocytes % 13.4 L, Monocytes % 10.5 H, Eosinophils % 3.3, Basophils % 0.5, Absolute Granulocytes 5.3, Absolute Lymphocytes 1.0 L, Absolute Monocytes 0.8 H, Absolute Eosinophils 0.2, Absolute Basophils 0, PUBS MCHC 33.8 12/21/16 0550: pH 7.38, pCO2 25 L, pO2 107 H, HCO3 14 L, ABG O2 Sat (Measured) 97.0, P-50 ( Temp Corrected) N, Carboxyhemoglobin 0.3 L, O2 Concentration % .30, Respiration Rate 18, O2 Delivery Method VENT, Vent Mode A/C, Expiratory Pressure 5, Tidal Volume 550, Phlebotomy Draw Site RIGHT RADIAL 12/21/16 2315: Anion Gap 13, Estimated GFR 26 L, Glucose 178 H, Calcium 8.7, Phosphorus 5.1 H, Magnesium 1.8, Total Bilirubin 0.5, AST 13 L, ALT 29, Albumin 3.3 L, CBC w Diff NO MAN DIFF REQ, RBC 3.59 L, MCV 88.2, MCH 29.9, RDW 13.9, MPV 9.6, Gran % 71.9, Lymphocytes % 14.0 L, Monocytes % 10.6 H, Eosinophils % 3.0, Basophils % 0.5, Absolute Granulocytes 5.5, Absolute Lymphocytes 1.1 L, Absolute Monocytes 0.8 H, Absolute Eosinophils 0.2, Absolute Basophils 0, PUBS MCHC 33.9 12/20/16 1902: Anion Gap 11, Estimated GFR 26 L, Glucose 179 H, Calcium 8.3 L, Phosphorus 4.7 H, Magnesium 1.9, Total Bilirubin 0.6, AST 20, ALT 23, Albumin 2.8 L Microbiology 12/20 1630 LOWER RESP: Respiratory Culture - COMP 12/20 163 LOWER RESP: Gram Stain - COMP Assessment/Plan Assessment/Plan The patient is a 76-year-old woman with known aortic stenosis who presents with acute on chronic congestive heart failure, fevers with possible pneumonia and hypotension. Her course is as well, given by acute on chronic kidney injury. Her initial CODE STATUS was listed as DNR DNI; however, currently she remains intubated. Hypotension, congestive heart failure: Likely due to underlying aortic stenosis, with possible exacerbation by pneumonia/sepsis. She has diuresed well, and I would attempt to wean dobutamine to off. Given the severity of her aortic stenosis, this will need to be addressed through either a procedure such as a TAVR, versus changing her status to comfort /palliative. Regardless, intervention of her aortic valve will need to be deferred until all acute infectious issues have resolved, she has been febrile overnight. Pneumonia/sepsis: The patient presented with an elevated temperature of 101.3 and has had a MAXIMUM TEMPERATURE of 101 over the past 24 hours. She will continue treatment as per the ID team and the ICU care team. Aortic stenosis: The patient has severe aortic stenosis which will need to be addressed both in regards to her previous CODE STATUS/care goals as well as following resolution of any possible infectious etiology. Acute kidney injury: Possibly secondary to a prerenal state due to her aortic stenosis. This appears to be improving; however, the risk for hemodialysis if further intervention to her aortic valve is necessary will need to be discussed Continue telemetry? Yes
--- NOTE | 2016-12-22 12:00 | NUR ---
Patient is restless and agitated, moving all extremities in bed but not to command. SAS ranging from 3-6, Propofol gtt has been titrated to off and a fentanyl gtt was started per order. She has been receiving IV ativan prn. Soft bilateral wrist restraints in place. Puils are equal and reactive. NSR-ST with PVC's on tele monitor, HR= 90-100's. SBP: 100-120's. Patient remains intubated with a #8 which was retapped with the anchor support to the left at 22cm. Vent settings currently AC 18/550/30/5- scant amounts of blood tinged secretions noted to the ETT and scant clear thin noted orally. O2 sats stable at 94-96%. Abodmen is soft and non tender with + bowel sounds. OGT in place to low wall suction with scant amounts of light brown output. [place] in place draining clear yellow urine. Skin is intact with trace generalized edema noted. Dobutamine gtt was been d/c since 1015. D5 1/2ns with 40meq kcl infusing at 50mls/hr. patient received IV K and Mag per order. Blood cultures and a urine culture drawn and pt to receive IV abx per order. Patients family remains at the bedside and plan of care has been discussed frequently. Vitals are currently stable. Will continue to closely monitor patient.
--- NOTE | 2016-12-22 15:00 | NUR ---
Patient is sedated on a fentanyl gtt which is infusing at 50mcg. She is receiving IV ativan 0.5mg every 2 hours. SAS ranging from 3-6, periods of agitation where all extremities are moving but patient can not follow commands or calm to direction. Tube feeds have been on hold since this morning due to risk of aspiration- Will continue to monitor patient.
[2016-12-22 16:00] VITALS: BP 124/62
--- NOTE | 2016-12-22 17:00 | NUR ---
Patient's family spoke with this RN, pastoral care, and Dr. Mayorga regarding patients plan of care. After discussion it was decided by the family that the patient would be transitioned to comfort care only and to be terminally extubated. Dr. Poe was called and made aware and will be in to speak with family. A comfort care cart was ordered and pastoral care remains at the bedside. All family members in attendance and at the bedside with patient. Awaiting further orders. Will continue to closely monitor patient.
--- NOTE | 2016-12-22 18:22 | Event Note ---
Event Note Event Note: Long discussion held with family regarding patient's care. Daughters have decided for comfort care and wish for their mother to be extubated now. They wish to discontinue all aggressive treatment and would like aggressive pain/ agitation control. They are aware of her guarded prognosis. Attending physician aware and amenable to plan. Will proceed with extubation with respiratory and provide morphine/ativan as needed for agitaiton/pain. Patient extubated at 1847 after receiving morphine/ativan and remaining on fentanyl drip. Family at bedside after per their wishes. Patient noted to be persistently tachypneic with shallow breaths. This is not responsive to morphine and ativan. Dilaudid x 1 given and morphine drip to be started. Patient very stridorous even after racemic epi treatment by respiratory; family asking for further management. Will give IV solumderol 40 mg. Above discussed and agreed by with resident Dr. Jazz MD. Night team made aware of events and will monitor closely.
--- NOTE | 2016-12-22 18:55 | Discharge Summary ---
Visit Information Visit Dates Admission Date: 12/18/16 Discharge Date: 12/23/16 Hospital Course Course Attending Physician: ANG COFFMAN MD Primary Care Physician: CHI GARCIA MD Consulting Request: Consulting Specialty: Cardiology Consulting Physician: Dr. Anthony MD Reason for Consult: Cardiogenic shock Hospital Course: Ms. Tapia is a 76 year old female with PMH HFrEF 2/2 non-ischemic cardiomyopathy (EF 40-45% 6 months ago on echocardiogram), chronic left bundle branch block, severe aortic stenosis with peak gradient 91 mm Hg, HTN, HLD, non- insulin dependent type 2 diabetes mellitus, CKD and gastric bypass who presented to [facility] on 12/18/16 with chief complaint of shortness of breath, fatigue and decrease appetite for five days. She was initially admitted to the general medicine floor for shortness of breath secondary to acute decompensated heart failure and fever of unknown etiology. She was transferred to the ICU the following day due to hemodynamic instability. Vital signs on admission: T 99.9, HR 92, RR 16, BP 86-56/ and O2 saturation of 96% on room air. Physical exam showed: General: Appearance Alert, Oriented X3, No Acute Distress HEENT: Atraumatic, Mucous Membr. moist/pink Neck: Supple Cardiovascular: Regular Rate, Normal S1, Normal S2, Grade 3/6 Systolic Ejection Murmur Lungs: Crackles Scattered Throughout Bilateral Lung [place] Abdomen: Soft, No Tenderness, Obese, Positive Bowel Sounds Extremities: No Clubbing, No Cyanosis, 1+ Pitting Edema on Bilateral Lower Extremities Labs were significant for: CBC unremarkable, Na 139, K 5.5, BUN 88, Cre 2.7, proBNP 2460. CXR was significant for cardiomegaly and left-sided retrocardiac opacity. EKG showed NSR HR 93, old LBBB, QTC 488. Patient was admitted to the ICU and the following was the management: 1. Cardiogenic shock: Patient did have a fever on admission to 101.2 without leukocytosis and no known source of infection. Known history of cardiomyopathy with severe aortic stenosis. Hypotension believed to be secondary to sepsis versus cardiogenic shock. All home antihypertensives held and she was given one dose of azithromycin and ceftriaxone as septic shock was on differential. Rapid flu negative. Cardiology consult was obtained. Patient was started on dobutamine and blood pressure responded well. Echo was obtained and showed moderate reduction in LV systolic function with mild concentric hypertophy. Severe aortic stenosis appreciated. Antibiotics discontinued as cardiogenic shock most likely. She was given mild fluid hydration to support preload and given intermittent lasix for afterload reduction. Her BP responded well to dobutamine drip which was ultimately titrated off. Patient remained hemodynamically stable until extubation on 12/22/16 at which time she was comfort care. Patient was pronounced on 12/23/16 at 11:03 AM. 2. Acute hypoxic respiratory failure: Likely secondary to decompensated CHF and underlying severe/critical . CXR on admission showed volume overload and cardiomegaly. However, on admission there was concern for community acquired pneumonia causing the respiratory distress and she was given one dose of ceftriaxone and azithromycin. Patient was noted to be acidotic and required intubation and her DNR/DNI order was changed to FULL CODE. Patient was intubated , started on propofol and ativan for sedation which was eventually switched to ativan and fentanyl for improved pain control. Lasix was given for volume overload, though used with caution secondary to underlying severe . Patient was noted to spike a fever overnight on 12/21/16 and was started again on antibiotics with ceftazadime and vancomycin. Due to severe aortic stenosis, patient had guarded prognosis for which she was inititally made DNR/DNI prior to being intubated. Due to several days of care requiring intubation, family decided to extubate and transition patient to comfort care. This was done on . Patient at 11:03 AM on 12/23/16. 3. Elevated troponins: Patient was noted to have positive troponins taht peaked at 1.47. This likely represented demand supply mismatch. Cardiology was consulted. Echo was done and showed EF 35-40% wtih severe aortic stenosis. Patient was continued on aspirin and no other aggressive measures were done. 4. Aortic stenosis, severe: Patient was high risk given critical aortic stenosis. Cardiology suggested patient required TAVR to optimize function, however due to decision to make patient comfort care no further management of aortic stenosis was purused. 5. WEN on CKD: Creatinine 2.7 on initial presentation, increased from baseline of 1.4. Likely secondary to hypoperfusion in the setting of decompensated CHF. Home medication lisinopril was held, gentle hydration with IVF given and dobutamine given for cardiogenic shock. ICU bundle was trended daily and creatinine improved to baseline. 6. Hyperkalemia: Patient noted to be hyperkalemic to 5.5 on admission likely secondary to acute kidney injury. This came down with gentle IV hydration and improvement in renal function. 7. Non-insulin dependant diabetes mellitus: Home glipizide ER was held on admission and patient started on accuchecks Q6 and regular insulin Q6. 8. CODE status: Initially DNR/DNI transitioned to FULL CODE while intubation was required and ultimately transitioned to comfort measures on 12/22/16. Allergies: Coded Allergies: Penicillins (UNKNOWN 12/18/16) vancomycin (ITCHY ALL OVER 12/18/16) Significant Procedures: CXR: FINDINGS: The cardiac silhouette is enlarged, but stable. The endotracheal tube and enteric tube are in unchanged position. There is a persistent retrocardiac opacity. There is mild interstitial prominence again noted throughout both lungs. The osseous structures are stable. Head CT: IMPRESSION: There is mild global parenchymal volume loss and nonspecific changes within the periventricular white matter that most likely represent a chronic manifestation of small vessel ischemia. No evidence of acute territorial infarct or hemorrhage. Echo: CONCLUSIONS Moderate reduction in left ventricular systolic function with mild concentric hypertrophy. Severe Aortic stenosis.Mild left atrial enlargement.Moderate Motral regurgitations and probably mild mitral stenosis. Chest CT: FINDINGS: LUNGS: There is bilateral lower lobe dependent consolidation/atelectasis. Rest of the lungs are expanded and clear. No pulmonary nodule or mass seen. MEDIASTINUM: An endotracheal tube is noted 1 cm above daisha. Nasogastric tube tip is below the diaphragm and stomach. Heart size is enlarged with tiny pericardial effusion. There are coronary artery mitral and aortic valve calcifications. Central trachea and bronchi are widely patent. The aorta is normal caliber. Nonspecific 1.3 cm left para-aortic lymph node. No additional lymph nodes seen. Mildly enlarged thyroid gland. PLEURA: There is a tiny right pleural effusion noted. AXILLA: No lymphadenopathy. UPPER ABDOMEN: Visualized liver, spleen and gallbladder appears unremarkable. OSSEOUS STRUCTURES: There is moderate spondylosis throughout the thoracic aorta. Vacuum disc phenomena and degenerative disc changes mid and lower dorsal spine. IMPRESSION: Bilateral lower lobe dependent consolidation/atelectasis with very tiny right pleural effusion. Reactive small left para-aortic lymph node. There is tiny pericardial effusion with cardiomegaly. Support lines and catheters as described above. Disposition Summary Disposition Principal Diagnosis: Cardiogenic shock Additional Diagnosis: Acute hypoxic respiratory failure Severe aortic stenosis WEN on CKD Hyperkalemia Non-insulin dependant DM Discharge Disposition: Discharge Instructions General Discharge Information Code Status: Comfort Care Only Patient's Diet: Tube feeding Patient's Activity: Comfort care only. Follow-Up Instructions/Appts: Not applicable. Copies To: SHARONDA CACERES,STONEY Reyes Attending MD Review Statement Documenting Attending: JOSE CACERES,CHI Yanez
--- NOTE | 2016-12-22 20:07 | NUR ---
At 1847, patient was extubated by respiratory and placed on 3L nc, patient was medicated with IV ativan and IV morphine for comfort prior to extubation since patient continues to have episodes of restlessness and agitation. Fentanyl gtt to remain infusing and Dr. Poe contacted on further comfort care orders. OGT was also removed at this time. After extubation patient became tachypneic with a respiratory rate in the high 30's. Patient was medicated with ativan and morphine per order. A one time of dose dilaudid was given after respiratory rate remained in the 30's after standing orders- See E-MAR. Patient was also suctioned and a dose of racephinephrine was given for stridor heard post extubation. IV rubinol and IV solumderol also adminstered per order. Family remains at the bedside along with pastoral care. Will continue to closely monitor patient.
[2016-12-22 23:30] VITALS: BP 58/00
--- NOTE | 2016-12-23 06:56 | PN- Housestaff ---
Subjective Follow-up For: Acute hypoxic respiratory failure Cardiogenic shock Severe aortic stenosis Complaints: no complaints Tele-Events Since Last Visit: Patient taken off telemetry as she was made comfort care around 645 PM last night. Subjective: Patient seen and examined at bedside this AM. She was laying comfortably in bed and remains on a fentanyl and morphine drip. She is also on ativan PRN for agitation. Family is at bedside and all questions answered. Due to morphine/ fentanyl drips, patient is not able to complete review of systems. SHE IS COMFORT CARE. Review of Systems Constitutional: Reports: see HPI. Objective Last 24 Hrs of Vital Signs/I&O Vital Signs Date Time Temp Pulse Resp B/P B/P Pulse O2 O2 Flow FiO2 Mean Ox Delivery Rate 12/23 0000 94 Nasal 3.0L Cannula 12/22 2330 100.8 108 14 58/00 12/22 1615 30 12/22 1600 98.9 102 18 124/62 95 Ventilator 30% 12/22 1600 95 Ventilator 30% 12/22 1347 30 12/22 1200 994 Ventilator 30% 12/22 1118 30 12/22 0832 30 12/22 0800 97.8 103 20 122/64 95 Ventilator 30% 12/22 0800 96 Ventilator 30% Intake & Output 12/23 0800 12/23 0000 12/22 1600 Intake Total 100 935 Output Total 50 300 1650 Balance 50 -300 -715 Intake, IV 100 875 Intake, Tube 60 Irrigant Number 1 Bowel Movements Output, 100 Gastric Drainage Output, Urine 50 300 1550 Patient 220 lb Weight Physical Exam General Appearance: Sedated, calm and in no acute distress Skin: No Significant Lesion Skin Temp/Moisture Exam: Warm/Dry HEENT: Atraumatic, EOMI Neck: Supple Cardiovascular: Regular Rate, Normal S1, Normal S2, +Ejection murmur Lungs: Shallow breaths with obvious snoring/obstruction, no respiratory distress Abdomen: Normal Bowel Sounds, Soft, No Tenderness Neurological: Normal Tone Extremities: No Edema Vascular: Pulses Symmetrical Current Medications: Current Medications Sig/Louisa Start time Last Medication Dose Route Stop Time Status Admin Acetaminophen 650 MG Q6P PRN 12/19 0115 DC PO Acetaminophen 1,000 MG Q6P PRN 12/19 0115 DC 12/21 IV 2022 Aspirin 81 MG DAILY 12/19 1000 DC 12/22 PO 09 Ceftazidime 1,000 MG Q12 12/22 1102 DC 12/22 IV 1237 Diclofenac Sodium 1 RISHI DAILY PRN 12/21 1315 DC 12/21 TOP 1543 Dobutamine HCl 250 MG Q24H 12/21 1045 DC 12/22 Dextrose/Water 250 ML IV 0546 Fentanyl Citrate 1,000 MCG Q24H 12/22 1845 AC 12/23 Dextrose/Water 250 ML IV 0320 Fentanyl Citrate 12.5 MCG ONCE ONE 12/22 1515 DC 12/22 IV 12/22 1516 1505 Fentanyl Citrate 12.5 MCG ONCE ONE 12/22 1230 DC 12/22 IV 12/22 1231 1215 Fentanyl Citrate 1,000 MCG Q24H 12/22 1045 DC 12/22 Dextrose/Water 250 ML IV 1200 Furosemide 40 MG ONCE ONE 12/22 0830 DC 12/22 IV 12/22 0831 0939 Glycopyrrolate 200 MCG ONE ONE 12/22 1915 DC 12/22 IV 12/22 1916 1915 Heparin Sodium 5,000 UNIT Q8 12/19 0115 FL 12/22 (Porcine) SC 1437 Hydromorphone HCl 2 MG ONCE PRN 12/22 1930 FL 12/22 IV 1959 Insulin Human Regular 0 Q6 12/19 1203 DC SC Lorazepam 2 MG ONCE ONE 12/22 1845 DC 12/22 IV 12/22 1846 1845 Lorazepam 2 MG Q1 NEEDED PRN 12/22 1830 12/23 IV 0320 Lorazepam 2 MG ONCE ONE 12/22 1815 DC 12/22 IV 12/22 1816 1832 Lorazepam 1 MG ONCE ONE 12/22 1200 DC 12/22 IV 12/22 1201 1115 Lorazepam 1 MG ONCE ONE 12/22 1045 DC 12/22 IV 12/22 1046 1015 Lorazepam 0.5 MG Q2 HRS NEEDED PRN 12/21 1045 DC 12/22 IV 1532 Magnesium Sulfate 1 GM ONCE ONE 12/22 0600 DC 12/22 Dextrose/Water 100 ML IV 12/22 0959 1102 Magnesium Sulfate 1 GM ONCE ONE 12/22 0600 DC 12/22 Dextrose/Water 100 ML IV 12/22 0959 0925 Methylprednisolone 40 MG ONCE ONE 12/22 1945 DC 12/22 IV 12/22 1946 1946 Morphine Sulfate 100 MG Q24H 12/22 1930 12/22 Dextrose/Water 100 ML IV 2013 Morphine Sulfate 4 MG ONCE ONE 12/22 1914 DC 12/22 IV 12/22 Morphine Sulfate 6 MG ONCE ONE 12/22 1845 DC 12/22 IV 12/22 1845 184 Morphine Sulfate 4 MG ONCE ONE 12/22 1830 DC 12/22 IV 12/22 183 183 Morphine Sulfate 2 MG Q1 NEEDED PRN 12/22 1830 AC 12/23 IV 0243 Morphine Sulfate 2 MG Q4P PRN 12/19 0115 DC 12/22 IV 1700 Pantoprazole Sodium 40 MG DAILY 12/20 1000 DC 12/22 IV 0926 Potassium Chloride 40 MEQ Q20H 12/22 0630 DC 12/22 Dextrose/Sodium 1,000 ML IV 0816 Chloride Propofol 1,000 MG Q12H 12/19 1245 DC 12/22 N/A 100 ML IV 0749 Racepinephrine 0.5 ML ONCE ONE 12/22 1945 DC 12/22 INH 12/22 194 194 Scopolamine HBr 1 PAT ONE ONE 12/22 1914 DC 12/22 TOP 12/22 Vancomycin HCl 1,250 MG DAILY 12/22 1033 DC 12/22 Sodium Chloride 250 ML IV 1247 Last 24 Hrs of Lab/Conor Results Last 24 Hrs of Labs/Mics: Laboratory Tests 12/23/16 0500: Sodium Cancelled, Potassium Cancelled, Chloride Cancelled, Carbon Dioxide Cancelled, Anion Gap Cancelled, BUN Cancelled, Creatinine Cancelled, Glucose Cancelled, Calcium Cancelled, Phosphorus Cancelled, Magnesium Cancelled, Total Bilirubin Cancelled, AST Cancelled, ALT Cancelled, Albumin Cancelled, CBC w Diff Cancelled, WBC Cancelled, RBC Cancelled, Hgb Cancelled, Hct Cancelled, MCV Cancelled, MCH Cancelled, RDW Cancelled, Plt Count Cancelled, MPV Cancelled, PUBS MCHC Cancelled Microbiology 12/22 1125 URINE ROUT: Urine Culture - RECD 12/22 1100 BLOOD: Blood Culture - RECD 12/22 1050 BLOOD: Blood Culture - RECD 12/22 0800 LOWER RESP: Respiratory Culture - COLB 12/22 0800 LOWER RESP: Gram Stain - COLB Assessment/Plan Assessment: Ms. 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 on 12/18/16 with chief complaint of shortness of breath, fatigue and decrease appetite for five days. She was initially admitted to the telemetry floor for shortness of breath secondary to acute decompensated heart failure and fever of unknown etiology. She was transferred to the ICU the following day due to hemodynamic instability. Vital signs on admission: T 99.9, HR 92, RR 16, BP 86-56/ and O2 saturation of 96% on room air. Labs were significant for: CBC unremarkable, Na 139, K 5.5, BUN 88, Cre 2.7, proBNP 2460. CXR was significant for cardiomegaly and left-sided retrocardiac opacity. EKG showed NSR HR 93, old LBBB, QTC 488. Patient was transitioned to COMFORT CARE after extubation last night and remains in the ICU. The following were the issues: 1. Hypotension, cardiogenic shock with possible component of septic shock: * Concern for septic shock on admission due to Tmax 101.3, though no leukocytosis or clear source of infection and patient was started on IV antibiotics which have since been discontinued * Hypotension likely 2/2 cardiogenic shock and patient was previously on dobutamine drip which has since been discontinued as patient perfusing well and BP now stable * However, sepsis remained on the differential as patient spiked a fever two nights ago to 101.2, pancultured yesterday * Patient started on ceftazidime, vancomycin yesterday but this has been discontinued as patient was made comfort * Cardio input appreciated * Held [id number] lisinopril and carvedilol in the setting of hypotension * Head CT negative for infarct * No further aggressive vital sign monitoring or treatment as patient now COMFORT MEASURES ONLY 2. Acute hypoxic respiratory failure secondary to decompensated CHF vs community acquired PNA * Echo about 6 months ago showed severe aortic stenosis and LVEF of 40-45%. Chest x-ray showed evidence of volume overload and cardiomegaly. 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 * Patient initially intubated 2/2 acidosis, however family decided to make patient comfort care last night-- she was extubated around 645 PM and was started on morphine drip, continued on fentanyl drip, given ativan PRN and solumedrol for stridor * Ativan 0.5 Q2h PRN n 3. Elevated troponins * Likely represented demand ischemia in the setting of hypotension * Troponins peaked at 1.47 * Cardio consult appreciated * Echo showed EF 35-40%, severe * Continue ASA 81 mg PO daily * No further aggressive measures as patient [employer] 4. Aortic stenosis, severe * Cardio consult appreciated * As she is [employer], no TAVR for treatment of critical 5. WEN on CKD * IMPROVED * Creatinine 2.7 on initial presentation, increased from baseline of 1.4. Likely secondary to hypoperfusion in the setting of decompensated CHF. * Hold [id number] lisinopril. * No futher labs at this point 6. Hyperkalemia: * K 5.5 on admission, likely 2/2 renal insufficiency * Do not trend ICU bundle further, [employer] 7. Non-insulin dependant DM * Held oral hypoglycemic glipizide ER 2.5 mg PO BID while inpatient * Accuchecks Q6 stopped * Regular insulin Q6 stopped COMFORT CARE ONLY Problem List: 1. Aortic stenosis 2. Cardiogenic shock 3. Acute hypoxemic respiratory failure 4. Hyperkalemia 5. Non-insulin dependent type 2 diabetes mellitus 6. Acute on chronic kidney failure Pain Ratin Pain Location: None Pain Goal: Remain pain free Pain Plan: Morphine drip Tomorrow's Labs & Rationales: None, comfort care. Consulting Request: Consulting Specialty: Cardiology Consulting Physician: Dr. Anthony MD Reason for Consult: Cardiogenic shock Consulting Request: Consulting Specialty: Cardiology Consulting Physician: Dr. Anthony MD Reason for Consult: Cardiogenic shock
[2016-12-23 08:00] VITALS: BP 50/0
--- NOTE | 2016-12-23 09:45 | PN- Pulmonary ---
Subjective HPI/Critical Care Issues: Agonal breathing noted Pt now in comfort care Objective Current Medications: Current Medications Sig/Louisa Start time Last Medication Dose Route Stop Time Status Admin Acetaminophen 650 MG Q6P PRN 12/19 0115 DC PO Acetaminophen 1,000 MG Q6P PRN 12/19 0115 DC 12/21 IV 2023 Aspirin 81 MG DAILY 12/19 1000 DC 12/22 PO 0926 Ceftazidime 1,000 MG Q12 12/22 1102 DC 12/22 IV 1237 Diclofenac Sodium 1 RISHI DAILY PRN 12/21 1315 DC 12/21 TOP 1543 Dobutamine HCl 250 MG Q24H 12/21 1045 DC 12/22 Dextrose/Water 250 ML IV 0546 Fentanyl Citrate 1,000 MCG Q24H 12/22 1845 12/23 Dextrose/Water 250 ML IV 0320 Fentanyl Citrate 12.5 MCG ONCE ONE 12/22 1515 DC 12/22 IV 12/22 1516 1505 Fentanyl Citrate 12.5 MCG ONCE ONE 12/22 1230 DC 12/22 IV 12/22 1231 1215 Fentanyl Citrate 1,000 MCG Q24H 12/22 1045 DC 12/22 Dextrose/Water 250 ML IV 1200 Glycopyrrolate 200 MCG ONE ONE 12/22 1915 DC 12/22 IV 12/22 1916 1915 Heparin Sodium 5,000 UNIT Q8 12/19 0115 UT 12/22 (Porcine) SC 1437 Hydromorphone HCl 2 MG ONCE PRN 12/22 1930 DC 12/22 IV 1959 Insulin Human Regular 0 Q6 12/19 1203 DC SC Lorazepam 2 MG ONCE ONE 12/22 1845 DC 12/22 IV 12/22 1846 1845 Lorazepam 2 MG Q1 NEEDED PRN 12/22 1830 12/23 IV 0848 Lorazepam 2 MG ONCE ONE 12/22 1815 DC 12/22 IV 12/22 1816 1832 Lorazepam 1 MG ONCE ONE 12/22 1200 DC 12/22 IV 12/22 1201 1115 Lorazepam 1 MG ONCE ONE 12/22 1045 DC 12/22 IV 12/22 1046 1015 Lorazepam 0.5 MG Q2 HRS NEEDED PRN 12/21 1045 UT 12/22 IV 1532 Magnesium Sulfate 1 GM ONCE ONE 12/22 0600 DC 12/22 Dextrose/Water 100 ML IV 12/22 0959 1102 Magnesium Sulfate 1 GM ONCE ONE 12/22 0600 DC 12/22 Dextrose/Water 100 ML IV 12/22 0959 0925 Methylprednisolone 40 MG ONCE ONE 12/22 194 DC 12/22 IV 12/22 Morphine Sulfate 100 MG Q24H 12/22 1930 AC 12/23 Dextrose/Water 100 ML IV 0852 Morphine Sulfate 4 MG ONCE ONE 12/22 191 DC 12/22 IV 12/22 1911914 Morphine Sulfate 6 MG ONCE ONE 12/22 1845 DC 12/22 IV 12/22 184 184 Morphine Sulfate 4 MG ONCE ONE 12/22 1830 DC 12/22 IV 12/22 183 183 Morphine Sulfate 2 MG Q1 NEEDED PRN 12/22 1830 AC 12/23 IV 0243 Morphine Sulfate 2 MG Q4P PRN 12/19 0115 DC 12/22 IV 1700 Pantoprazole Sodium 40 MG DAILY 12/20 1000 DC 12/22 IV 0926 Potassium Chloride 40 MEQ Q20H 12/22 0630 DC 12/22 Dextrose/Sodium 1,000 ML IV 0816 Chloride Propofol 1,000 MG Q12H 12/19 1245 DC 12/22 N/A 100 ML IV 0749 Racepinephrine 0.5 ML ONCE ONE 12/22 1944 DC 12/22 INH 12/22 Scopolamine HBr 1 PAT ONE ONE 12/22 1914 DC 12/22 TOP 12/22 Vancomycin HCl 1,250 MG DAILY 12/22 1033 DC 12/22 Sodium Chloride 250 ML IV 1247 Vital Signs & I&O Last 24 Hrs of Vitals and I&O: Vital Signs Date Time Temp Pulse Resp B/P B/P Pulse O2 O2 Flow FiO2 Mean Ox Delivery Rate 12/23 0000 94 Nasal 3.0L Cannula 12/22 2330 100.8 108 14 58/00 12/22 1615 30 12/22 1600 98.9 102 18 124/62 95 Ventilator 30% 12/22 1600 95 Ventilator 30% 12/22 1347 30 12/22 1200 994 Ventilator 30% 12/22 1118 30 Intake & Output 12/23 1600 12/23 0800 12/23 0000 Intake Total 100 Output Total 50 300 Balance 50 -300 Intake, IV 100 Output, Urine 50 300 Impression/Plan Impression/Plan Impression/Plan: Physical Exam: General: Nontoxic, no apparent distress. HEENT: Sclera and conjunctiva within normal limits, without xanthelasmas. Neck: Carotids 2+ without bruits. Respiratory: Presented, scattered rhonchi and rales, without accessory respiratory muscle use. Heart: Regular rate and rhythm, 2/6 systolic ejection murmur at the left sternal border as well as a soft crescendo decrescendo murmur at the right sternal border (masked by ventilation sounds), without JVD. Abdomen: Soft, nontender, no masses, normoactive bowel sounds. Extremities: Without clubbing, cyanosis. Neuro: Unable to fully obtain as the patient is sedated and intubated Skin: Within normal limits without lesions. Psych: Mood and affect: Unable to assess This is a lady with the significant cardiomyopathy, chronic left bundle branch block, critical aortic stenosis, chronic kidney disease, previous history of obstructive sleep apnea, hyperlipidemia, diabetes, multiple degenerative joint disease, chronic venous insufficiency in the past, previous gastric bypass surgery and hysterectomy and left total knee replacement with a hip replacement, now has Acute hypoxemic respiratory failure related to significant congestive heart failure due to severe cardiomyopathy. Patient has acute systolic congestive heart failure Critical aortic stenosis Chronic kidney disease which is slowly improving Initial temperature 101 with no clinical evidence suggestive of significant pneumonia as she does not have any purulent secretions etc. Chronic kidney disease with acute renal failure with slowly improving Cardiogenic shock, now on dobutamine Diabetes, hyperlipidemia and hypertension RECOMMENDATION Pt is comfort care Will cont to comfort OK to the floor Will have hospice consult today
--- NOTE | 2016-12-23 12:01 | NUR ---
PT TRANSFERRED TO [facility] [place] AT 1200, DENTURES PLACED IN PTS MOUTH. EARRINGS REMOVED AND GIVEN TO FAMILY. PRAYER SHAWL GIVEN TO FAMILY.
--- NOTE | 2016-12-23 14:43 | Event Note ---
Event Note Event Note: Patient noted to be asystolic on the heel trimmer. Evaluation by myself and resident noted no cardiac or respiratory sounds. No pulse appreciated. No pupil or corneal reflexes noted. Patient pronounced at 11:[address] Deepika MD made aware. Consolences given to family who is at bedside.
== END 2016-12-23 11:03 | disposition expired | DRG 291 ==
LOC: ERH 21:00 → CRI 23:19 → ERHI 23:19 → ENRESERV 23:49 → EDBEDREQ 12-19 00:04 → ENRESERV 12-19 00:11 → 1NO 12-19 02:08 → CRI 12-19 06:10
PROVIDERS: Ophthalmology; Physician Assistant Medical; Student in an Organized Health Care Education/Training Program; ADMIT Internal Medicine
PROC: 0BH17EZ Insertion of Endotracheal Airway into Trachea, Via Natural or Artificial Opening (ICD-10-PCS; principal; 2016-12-19)
PROC: 5A1945Z Respiratory Ventilation, 24-96 Consecutive Hours (ICD-10-PCS; 2016-12-19)
DX: I50.23 Acute on chronic systolic (congestive) heart failure (principal); J96.01 Acute respiratory failure with hypoxia; R57.0 Cardiogenic shock; N17.9 Acute kidney failure, unspecified; E87.2 Acidosis; I13.0 Hypertensive heart and chronic kidney disease with heart failure and stage 1 through stage 4 chronic kidney disease, or unspecified chronic kidney disease; I24.8 Other forms of acute ischemic heart disease; I42.9 Cardiomyopathy, unspecified; E87.5 Hyperkalemia; I35.0 Nonrheumatic aortic (valve) stenosis; E11.9 Type 2 diabetes mellitus without complications; Z51.5 Encounter for palliative care; N18.9 Chronic kidney disease, unspecified; E66.9 Obesity, unspecified; Z68.33 Body mass index [BMI] 33.0-33.9, adult; E78.5 Hyperlipidemia, unspecified; Z79.82 Long term (current) use of aspirin; Z79.84 Long term (current) use of oral hypoglycemic drugs; Z87.891 Personal history of nicotine dependence
CPT/HCPCS: CCU; ERO; 36415; 81003; 82436; 87040; 87070; 87086; 87804; 87804-59; 93005; 93010; 93306; 94799; 96361; 96365; J0131; J0456; J0696; J0713; J1170; J1644; J1940; J2060; J2250; J2270; J2920; J3010; J3370; J3490; J7040; J7042